=== PATIENT | female | born 1955 | race Caucasian/White ===

== ENCOUNTER → 2017-11-07 | Outpatient (CLI) | payer OTHER ==
--- NOTE | 2017-11-07 14:56 | CT ---
EXAMINATION TYPE: CT chest w con DATE OF EXAM: 11/07/2017 COMPARISON: Radiograph 02/17/2016 HISTORY: 62-year-old female Abnormal CXR, Cough TECHNIQUE: Contiguous axial scanning of the chest after the administration of 100 mL of Isovue 300. Coronal/sagittal reconstructions performed. CT DLP: 2232mGycm. Automatic exposure control utilized for a dose reduction. FINDINGS: Large patient body habitus and patient's arms over the lower chest causes extensive artifact limiting assessment. In the visualized upper abdomen, there is marked distention of the gallbladder measuring 6.7 cm wide. Heart borderline to mildly enlarged without pericardial effusion. Aorta normal caliber with conventional branching anatomy. No thoracic lymphadenopathy by CT size criteria. Evaluation of the lungs shows respiratory motion artifacts and suggestion of mild underlying emphysem a. Mild diffuse bronchial wall thickening. Strandy dependent and bibasilar atelectasis without consol idation or pleural effusion. Bones: Degenerative changes of both shoulders. No evident osseous structure process. There is a centr al disc osteophyte complex seen at L1-L2. IMPRESSION: 1. Excessive artifacts due to patient's large size and arms down position. 2. Hypoventilatory changes due to large size. Also, COPD with mild emphysema. 3. Borderline to mild cardiomegaly. 4. Moderately hydropic gallbladder measuring 6.7 cm wide. Correlate for any right upper quadrant pain . If concern for early acute cholecystitis or other gallbladder dysfunction, recommend gallbladder ul trasound or HIDA scan.
== END | disposition home or self-care (01) ==
LOC: RADCTMAIN 13:07
PROVIDERS: ATTEND Family Medicine
DX: J43.9 Emphysema, unspecified (principal); I51.7 Cardiomegaly
CPT/HCPCS: 71260; Q9967

== ENCOUNTER 2018-01-31 11:35 | Emergency (ER) | payer OTHER ==
--- NOTE | 2018-01-31 11:49 | ED ---
Extremity Problem HPI - General Chief complaint: Extremity Problem,Nontraumatic Stated complaint: Extremity pain Time Seen by Provider: 01/31/18 11:47 Source: patient, EMS, RN notes reviewed, old records reviewed Mode of arrival: EMS Limitations: no limitations - History of Present Illness Initial comments: This is a 62-year-old female the ER for evaluation of left lower extremity edema rule out DVT. Patient complains of left LEG swelling and pain. No trauma. No recent travel history no sick contacts no history of DVT or PE. MD Complaint: extremity pain, extremity swelling (Left lower) -: days(s) Location: left, lower extremity History of Same: No -: No associated chest pain Radiation: none Severity scale (1-10): 3 Quality: aching Consistency: constant Improves with: nothing Worsens with: weight bearing Associated Symptoms: denies other symptoms - Related Data Home Medications Medication Instructions Recorded Confirmed Acetaminophen [Tylenol] 500 mg PO Q4H PRN 01/26/16 01/31/18 Albuterol Nebulized [Ventolin 2.5 mg INHALATION RT-Q6H PRN 01/26/16 01/31/18 Nebulized] Aspirin [Adult Low Dose Aspirin EC] 81 mg PO DAILY 01/26/16 01/31/18 Calcium Carbonate/Vitamin D3 1 tab PO BID 01/26/16 01/31/18 [Calcium 600-Vit D3 400 Caplet] Furosemide [Lasix] 40 mg PO DAILY 01/26/16 01/31/18 Lisinopril [Zestril] 10 mg PO DAILY 01/26/16 01/31/18 Multivitamins, Thera [Multivitamin 1 tab PO HS 01/26/16 01/31/18 (formulary)] Pravastatin Sodium [Pravachol] 20 mg PO HS 01/26/16 01/31/18 Spironolactone [Aldactone] 25 mg PO DAILY 01/26/16 01/31/18 fluvoxaMINE MALEATE [Luvox] 100 mg PO BID 01/26/16 01/31/18 Sennosides-Docusate Sodium 2 tab PO HS 02/15/16 01/31/18 [Senokot-S] Bisacodyl [Dulcolax] 10 mg PO DAILY PRN 01/31/18 01/31/18 Budesonide/Formoterol Fumarate 2 puff INHALATION RT-BID 01/31/18 01/31/18 [Symbicort 160-4.5 Mcg Inhaler] Insulin Glargine [Lantus] 115 unit SQ HS@2100 01/31/18 01/31/18 Magnesium Hydroxide [Milk of 2,400 mg PO DAILY PRN 01/31/18 01/31/18 Magnesia] SILVER sulfADIAZINE CREAM 1 applic TOPICAL BID 01/31/18 01/31/18 [Silvadene Cream] Triamcinolone 0.1% Cream [Kenalog 1 applic TOPICAL BID 01/31/18 01/31/18 0.1% Cream] Previous Rx's Medication Instructions Recorded HYDROcodone/APAP 7.5-325MG [[place] 0.5 tab PO Q4H PRN #30 tab 02/20/16 7.5-325] Insulin Aspart [NovoLOG 30 unit SQ AC-TID #0 02/20/16 (formulary)] Ipratropium-Albuterol Nebulize 3 ml INHALATION RT-QID ampul.neb 02/20/16 [Duoneb 0.5 mg-3 mg/3 ml Soln] Metoprolol Tartrate [Lopressor] 12.5 mg PO BID tab 02/20/16 Potassium Chloride ER [K-Dur 20] 40 meq PO DAILY #0 02/20/16 Cephalexin [Keflex] 500 mg PO Q6HR #40 cap 01/31/18 Allergies Allergy/AdvReac Type Severity Reaction Status Date / Time No Known Allergies Allergy Verified 01/31/18 12:08 Review of Systems ROS Statement: Those systems with pertinent positive or pertinent negative responses have been documented in the HPI. ROS Other: All systems not noted in ROS Statement are negative. Past Medical History Past Medical History: Heart Failure, Diabetes Mellitus, Hyperlipidemia, Hypertension, Vascular Disorder Additional Past Medical History / Comment(s): hx hypokalemia, wound bottom of rt foot History of Any Multi-Drug Resistant Organisms: None Reported Past Surgical History: Unable to Obtain Additional Past Surgical History / Comment(s): closed head injury approx 1999. 2 surgeries to release pressure on brain Past Anesthesia/Blood Transfusion Reactions: Unable to Obtain Past Psychological History: Anxiety, Depression Smoking Status: Former smoker Past Alcohol Use History: None Reported Past Drug Use History: None Reported - Past Family History Mother Family Medical History: Unable to Obtain General Exam Limitations: no limitations General appearance: alert, in no apparent distress Head exam: Present: atraumatic, normocephalic, normal inspection Eye exam: Present: normal appearance, PERRL, EOMI. Absent: scleral icterus, conjunctival injection, periorbital swelling ENT exam: Present: normal exam, mucous membranes moist Neck exam: Present: normal inspection. Absent: tenderness, meningismus, lymphadenopathy Respiratory exam: Present: normal lung sounds bilaterally. Absent: respiratory distress, wheezes, rales, rhonchi, stridor Cardiovascular Exam: Present: regular rate, normal rhythm, normal heart sounds. Absent: systolic murmur, diastolic murmur, rubs, gallop, clicks GI/Abdominal exam: Present: soft, normal bowel sounds. Absent: distended, tenderness, guarding, rebound, rigid Extremities exam: Present: normal inspection, full ROM, normal capillary refill. Absent: tenderness, pedal edema, joint swelling, calf tenderness Back exam: Present: normal inspection Neurological exam: Present: alert, oriented X3, CN II-XII intact Psychiatric exam: Present: normal affect, normal mood Skin exam: Present: warm, dry, intact, normal color. Absent: rash Course Vital Signs 01/31/18 01/31/18 01/31/18 11:42 13:45 17:42 Temperature 97.9 F Pulse Rate 90 87 90 Respiratory 16 16 16 Rate Blood Pressure 143/70 126/78 143/78 O2 Sat by Pulse 95 99 Oximetry - Reevaluation(s) Reevaluation #1: 01/31/18 17:52 Medical record is reviewed Reevaluation #2: 01/31/18 17:52 Patient placed on antibiotics or cyanosis, she is encouraged to stay in the hospital, she states he feels good and would like to be discharged Medical Decision Making - Medical Decision Making 62 female the ER for evaluation, patient presents today for evaluation regarding to leg swelling rule out leg occlusion arterial occlusion CT of leg is negative and some negative for DVT, patient has cellulitis which we'll treat with antibiotics - Lab Data Result diagrams: 01/31/18 11:52 01/31/18 11:52 Lab Results 01/31/18 01/31/18 01/31/18 Range/Units 11:52 11:52 11:52 WBC 8.6 (3.8-10.6) k/uL RBC 5.32 (3.80-5.40) m/uL Hgb 14.1 (11.4-16.0) gm/dL Hct 43.9 (34.0-46.0) % MCV 82.6 (80.0-100.0) fL MCH 26.6 (25.0-35.0) pg MCHC 32.2 (31.0-37.0) g/dL RDW 15.7 H (11.5-15.5) % Plt Count 305 (150-450) k/uL Neutrophils % 74 % Lymphocytes % 16 % Monocytes % 4 % Eosinophils % 4 % Basophils % 0 % Neutrophils # 6.3 (1.3-7.7) k/uL Lymphocytes # 1.4 (1.0-4.8) k/uL Monocytes # 0.4 (0-1.0) k/uL Eosinophils # 0.4 (0-0.7) k/uL Basophils # 0.0 (0-0.2) k/uL PT (9.0-12.0) sec INR (<1.2) APTT (22.0-30.0) sec Sodium 140 (137-145) mmol/L Potassium 5.1 (3.5-5.1) mmol/L Chloride 102 (98-107) mmol/L Carbon Dioxide 32 H (22-30) mmol/L Anion Gap 6 mmol/L BUN 11 (7-17) mg/dL Creatinine 0.56 (0.52-1.04) mg/dL Est GFR (CKD-EPI)AfAm >90 (>60 ml/min/1.73 sqM) Est GFR (CKD-EPI)NonAf >90 (>60 ml/min/1.73 sqM) Glucose 131 H (74-99) mg/dL Calcium 9.4 (8.4-10.2) mg/dL Phosphorus 4.3 (2.5-4.5) mg/dL Magnesium 1.8 (1.6-2.3) mg/dL Total Bilirubin 0.9 (0.2-1.3) mg/dL AST 46 H (14-36) U/L ALT 40 (9-52) U/L Alkaline Phosphatase 74 (38-126) U/L Total Creatine Kinase 68 (30-135) U/L CK-MB (CK-2) 0.4 (0.0-2.4) ng/mL CK-MB (CK-2) Rel Index 0.6 Troponin I <0.012 (0.000-0.034) ng/mL Total Protein 7.1 (6.3-8.2) g/dL Albumin 3.3 L (3.5-5.0) g/dL 01/31/18 Range/Units 11:52 WBC (3.8-10.6) k/uL RBC (3.80-5.40) m/uL Hgb (11.4-16.0) gm/dL Hct (34.0-46.0) % MCV (80.0-100.0) fL MCH (25.0-35.0) pg MCHC (31.0-37.0) g/dL RDW (11.5-15.5) % Plt Count (150-450) k/uL Neutrophils % % Lymphocytes % % Monocytes % % Eosinophils % % Basophils % % Neutrophils # (1.3-7.7) k/uL Lymphocytes # (1.0-4.8) k/uL Monocytes # (0-1.0) k/uL Eosinophils # (0-0.7) k/uL Basophils # (0-0.2) k/uL PT 10.7 (9.0-12.0) sec INR 1.0 (<1.2) APTT 27.0 (22.0-30.0) sec Sodium (137-145) mmol/L Potassium (3.5-5.1) mmol/L Chloride (98-107) mmol/L Carbon Dioxide (22-30) mmol/L Anion Gap mmol/L BUN (7-17) mg/dL Creatinine (0.52-1.04) mg/dL Est GFR (CKD-EPI)AfAm (>60 ml/min/1.73 sqM) Est GFR (CKD-EPI)NonAf (>60 ml/min/1.73 sqM) Glucose (74-99) mg/dL Calcium (8.4-10.2) mg/dL Phosphorus (2.5-4.5) mg/dL Magnesium (1.6-2.3) mg/dL Total Bilirubin (0.2-1.3) mg/dL AST (14-36) U/L ALT (9-52) U/L Alkaline Phosphatase (38-126) U/L Total Creatine Kinase (30-135) U/L CK-MB (CK-2) (0.0-2.4) ng/mL CK-MB (CK-2) Rel Index Troponin I (0.000-0.034) ng/mL Total Protein (6.3-8.2) g/dL Albumin (3.5-5.0) g/dL - Radiology Data Radiology results: report reviewed (XL left lower [place] negative for DVT CTA left lower extremity negative for arterial occlusion), image reviewed Disposition Clinical Impression: Leg edema, left, Left leg cellulitis Disposition: HOME SELF-CARE Condition: Good Instructions: Cellulitis (ED) Prescriptions: Cephalexin [Keflex] 500 mg PO Q6HR #40 cap Is patient prescribed a controlled substance at d/c from ED?: No Referrals: Zhang Ray DO [Primary Care Provider] - 1-2 days
--- NOTE | 2018-01-31 12:42 | US ---
EXAMINATION TYPE: US venous doppler duplex LE LT DATE OF EXAM: 01/31/2018 12:33 PM COMPARISON: NONE CLINICAL HISTORY: Pain. Left leg pain and redness x 20 years. Difficult and limited and exam due to p atient body habitus 5ft4in 360+lbs SIDE PERFORMED: Left TECHNIQUE: The lower extremity deep venous system is examined utilizing real time linear array sonog chel with graded compression, doppler sonography and color-flow sonography. VESSELS IMAGED: External Iliac Vein (EIV) Common Femoral Vein Deep Femoral Vein Greater Saphenous Vein * Femoral Vein Popliteal Vein Small Saphenous Vein * Proximal Calf Veins (* superficial vessels) Left Leg: No gross evidence for DVT as visualized, however exam is extremely limited due to patient' s body habitus. Unable to visualized veins to prove compressibility. Vascular waveforms visualized. IMPRESSION: There is vascular flow throughout the left lower extremities however given the patient's body habitus compressibility, the most accurate indicator of a negative exam, was not able to be demo nstrated throughout the left lower extremity. No gross evidence of acute deep venous thrombosis.
[2018-01-31] MEDS ORDERED: SODIUM CHLORIDE 0.9% 1,000 ML IV STA (13:16)
[2018-01-31] MEDS ORDERED: RX INFO: IV CONTRAST WAS GIVEN 1 EACH MISC MISCELLANE PRN (13:16)
[2018-01-31 14:04] LABS: Prothrombin Time 10.7 sec (9.0-12.0)
[2018-01-31 14:09] LABS: ALT 40 U/L (9-52); AST 46 U/L (14-36); Albumin 3.3 g/dL (3.5-5.0); Alkaline Phosphatase 74 U/L (38-126); Anion Gap 6 mmol/L; Blood Urea Nitrogen 11 mg/dL (7-17); Calcium 9.4 mg/dL (8.4-10.2); Carbon Dioxide 32 mmol/L (22-30); Chloride 102 mmol/L (98-107); Glucose 131 mg/dL (74-99); Magnesium 1.8 mg/dL (1.6-2.3); Phosphorus 4.3 mg/dL (2.5-4.5); Potassium 5.1 mmol/L (3.5-5.1); Sodium 140 mmol/L (137-145); Total Bilirubin 0.9 mg/dL (0.2-1.3); Total Protein 7.1 g/dL (6.3-8.2)
[2018-01-31 14:25] LABS: Basophils % (A) 0 %; Creatine Kinase 68 U/L (30-135); Eosinophils # (A) 0.4 k/uL (0-0.7); Eosinophils % (A) 4 %; HCT 43.9 % (34.0-46.0); HGB 14.1 gm/dL (11.4-16.0); Lymphocytes # (A) 1.4 k/uL (1.0-4.8); Lymphocytes % (A) 16 %; MCH 26.6 pg (25.0-35.0); MCHC 32.2 g/dL (31.0-37.0); MCV 82.6 fL (80.0-100.0); Mean Platelet Volume 6.6; Monocytes # (A) 0.4 k/uL (0-1.0); Monocytes % (A) 4 %; Neutrophils # (A) 6.3 k/uL (1.3-7.7); Neutrophils % (A) 74 %; Platelet Count 305 k/uL (150-450); RBC 5.32 m/uL (3.80-5.40); RDW 15.7 % (11.5-15.5); WBC 8.6 k/uL (3.8-10.6)
[2018-01-31 14:38] LABS: Creatine Kinase MB 0.4 ng/mL (0.0-2.4); Troponin I <0.012 ng/mL (0.000-0.034)
--- NOTE | 2018-01-31 17:12 | CT ---
EXAMINATION TYPE: CT angio lower extremity LT DATE OF EXAM: 01/31/2018 3:30 PM COMPARISON: None HISTORY: Left lower leg swelling and redness CT DLP: 1556.2 mGycm Automated exposure control for dose reduction was used. TECHNIQUE: Performed with IV Contrast, patient injected with 100 mL of Isovue 370. . FINDINGS: CT of the lower extremity runoff is performed. Vasculature appears to be patent to the level of the a nkles bilaterally on the source images. This appears to be attenuated on the reconstructed images alt ramses vasculature is evident to the trifurcation vessels on the reconstructed images. Overall, vessel caliber appears to be diffusely slightly small. There is some soft tissue swelling and edema of the left lower extremity compared to the right. This is greater along the anterior margin of the soft tissues anterior to the tibia. Venous vasculature on the left is somewhat prominent. Consider deep venous thrombosis. Left lower extremity ultrasound for deep venous thrombosis is recommended. IMPRESSION: 1. PATENT ARTERIAL VASCULARITY TO THE LEVEL OF THE ANKLES ON SOURCE IMAGES. 2. SOFT TISSUE SWELLING LEFT LOWER EXTREMITY COMPARED TO THE RIGHT. SOME SOFT TISSUE THICKENING ALONG THE ANTERIOR TIBIAL REGION ON THE LEFT MAY BE PRESENT. CONSIDER INFECTION WITHIN THE DIFFERENTIAL., GIVEN THE ASYMMETRY AND SOMEWHAT PROMINENT VASCULARITY ON THE LEFT, CONSIDER POSSIBILITY OF DEEP VENO US THROMBOSIS. ULTRASOUND RECOMMENDED FOR ADDITIONAL EVALUATION.
[2018-01-31] MEDS ORDERED: CEPHALEXIN 500 MG CAP PO STA (17:28)
[2018-01-31 18:17] VITALS: BP 109/56; PULSE 82; RESP 18; TEMP 98
[2018-01-31 18:29] LABS: Glucose,Whole Blood 82 mg/dL (75-99)
== END 2018-01-31 20:01 | disposition home or self-care (01) ==
LOC: EC 11:35
DX: L03.116 Cellulitis of left lower limb (principal); I11.0 Hypertensive heart disease with heart failure; I50.9 Heart failure, unspecified; E11.9 Type 2 diabetes mellitus without complications; E78.5 Hyperlipidemia, unspecified; F32.9 Major depressive disorder, single episode, unspecified; F41.9 Anxiety disorder, unspecified; Z87.891 Personal history of nicotine dependence; Z79.82 Long term (current) use of aspirin; Z79.51 Long term (current) use of inhaled steroids; Z79.899 Other long term (current) drug therapy; Z79.4 Long term (current) use of insulin
CPT/HCPCS: 36415; 93005; 80053; 82550; 82553; 83735; 84100; 84484; 85025; 85610; 85730; 93971; 73706; 99285; 96360; Q9967

== ENCOUNTER → 2021-07-12 | Outpatient (CLI) | payer MEDICARE, OTHER ==
--- NOTE | 2021-07-12 13:35 | USB ---
Patient History: Menarche at age 14. First Full-Term at age 20. Postmenopausal. Risk Values: Shantal 5 year model risk: 1.4%. NCI Lifetime model risk: 4.9%. Prior Study Comparison: 01/13/2007 Screening Mammogram, [facility]. 03/29/2008 Screening Mammogram, [facility]. 03/07/2010 Bilateral Screening Mammogram, [facility]. Findings: Right complete breast ultrasound including all four quadrants, the retroareolar region and axilla. Finding demonstrates no cystic or solid lesion seen. Left complete breast ultrasound including all four quadrants, the retroareolar region and axilla. Finding demonstrates no cystic or solid lesion seen a 2.3 x 0.2 x 3.0cm dermal mass. There is a hypoechoic subdermal collection at the 6:00 position 3 cm from the nipple. The deeper breast tissue appears normal. No suspicious underlying mass is identified. Overall Assessment: Probably benign, BI-RAD 3 Management: Screening Mammogram of both breasts. A clinical breast exam by your physician is recommended on an annual basis and results should be correlated with mammographic findings. Clinical management of the patient's physical findings. No recent mammograms at this location. VIANEY
--- NOTE | 2021-07-12 14:08 | P.GSHP ---
History of Present Illness H&P Date: 07/12/21 Chief Complaint: a sore in her left breast Patient is a 66-year-old white female from [facility] who was noted to have a dark firm spot in her left breast. The patient does not feel any lumps or masses herself. She is not complaining of any pain in her breast. The patient had a closed head injury 25 years ago. She is bed bound. She does not tolerate a wheel chair for very long. Her right side works better than her left side. Caffiene: 1 cup/day nicotine: 1 PPD/ > 20 years ago hormones: none BCP: 10 years Family History: no cancer Other: Possibly preleukemia Hormonal History: menarche: 12 , breast fed: no, age at first : 20 menopause: ? closed head injury; questionable vaginal bleeding Surgical History: ? surgical history Medical history: Hemiplegia and hemiparesis following cerebral infarction affecting left dominant side Vascular dementia COPD Type 2 diabetes Morbid obesity Personality disorder Hyperlipidemia and Major depressive disorder Lymphedema Obsessive-compulsive disorder Hypertension Contracture left ankle Chronic idiopathic constipation Tachycardia Social history: Nicotine: Negative Alcohol: Negative at this time, he was an alcoholic 25 years ago and that is why she fell Drugs: Negative - Constitutional Constitutional: Denies chills, Denies fever - EENT Comment: glasses Ears, nose, mouth and throat: Reports as per HPI - Breasts Breasts: bilateral: as per HPI - Cardiovascular Cardiovascular: Reports shortness of breath - Respiratory Comment: COPD - Gastrointestinal Gastrointestinal: Reports constipation - Genitourinary (Female) Genitourinary: Reports as per HPI - Menstruation Menstruation: Reports as per HPI - Musculoskeletal Musculoskeletal: Reports as per HPI - Integumentary Integumentary: Reports as per HPI - Neurological Neurological: Reports as per HPI - Psychiatric Psychiatric: Reports as per HPI - Endocrine Comment: diabetic - Hematologic/Lymphatic Comment: low dose aspirin - Allergic/Immunologic Allergic/Immunologic: Reports as per HPI Past Medical History Past Medical History: Heart Failure, Diabetes Mellitus, Hyperlipidemia, Hypertension, Vascular Disorder Additional Past Medical History / Comment(s): hx hypokalemia, wound bottom of rt foot History of Any Multi-Drug Resistant Organisms: None Reported Past Surgical History: Unable to Obtain Additional Past Surgical History / Comment(s): closed head injury approx 1999. 2 surgeries to release pressure on brain Past Anesthesia/Blood Transfusion Reactions: Unable to Obtain Past Psychological History: Anxiety, Depression Past Alcohol Use History: None Reported Past Drug Use History: None Reported - Past Family History Mother Family Medical History: Unable to Obtain Medications and Allergies Home Medications Medication Instructions Recorded Confirmed Type Acetaminophen [Tylenol] 500 mg PO Q4H PRN 01/26/16 01/31/18 History Albuterol Nebulized [Ventolin 2.5 mg INHALATION RT-Q6H PRN 01/26/16 01/31/18 History Nebulized] Aspirin [Adult Low Dose Aspirin EC] 81 mg PO DAILY 01/26/16 01/31/18 History Calcium Carbonate/Vitamin D3 1 tab PO BID 01/26/16 01/31/18 History [Calcium 600-Vit D3 400 Caplet] Furosemide [Lasix] 40 mg PO DAILY 01/26/16 01/31/18 History Multivitamins, Thera [Multivitamin 1 tab PO HS 01/26/16 01/31/18 History (formulary)] Pravastatin Sodium [Pravachol] 20 mg PO HS 01/26/16 01/31/18 History Spironolactone [Aldactone] 25 mg PO DAILY 01/26/16 01/31/18 History fluvoxaMINE MALEATE [Luvox] 100 mg PO BID 01/26/16 01/31/18 History lisinopriL [Zestril] 10 mg PO DAILY 01/26/16 01/31/18 History Sennosides-Docusate Sodium 2 tab PO HS 02/15/16 01/31/18 History [Senokot-S] HYDROcodone/APAP 7.5-325MG [[place] 0.5 tab PO Q4H PRN #30 tab 02/20/16 01/31/18 Rx 7.5-325] INSULIN ASPART (NovoLOG) [NovoLOG 30 unit SQ AC-TID #0 02/20/16 01/31/18 Rx (formulary)] Ipratropium-Albuterol Nebulize 3 ml INHALATION RT-QID ampul.neb 02/20/16 01/31/18 Rx [Duoneb 0.5 mg-3 mg/3 ml Soln] Metoprolol Tartrate [Lopressor] 12.5 mg PO BID tab 02/20/16 01/31/18 Rx Potassium Chloride ER [K-Dur 20] 40 meq PO DAILY #0 12/26/16 12/07/18 Rx Budesonide/Formoterol Fumarate 2 puff INHALATION RT-BID 01/31/18 01/31/18 History [Symbicort 160-4.5 Mcg Inhaler] Cephalexin [Keflex] 500 mg PO Q6HR #40 cap 01/31/18 Rx Insulin Glargine [Lantus Vial] 115 unit SQ HS@2100 01/31/18 01/31/18 History Magnesium Hydroxide [Milk of 2,400 mg PO DAILY PRN 01/31/18 01/31/18 History Magnesia] SILVER sulfADIAZINE CREAM 1 applic TOPICAL BID 01/31/18 01/31/18 History [Silvadene Cream] Triamcinolone 0.1% Cream [Kenalog 1 applic TOPICAL BID 01/31/18 01/31/18 History 0.1% Cream] bisacodyL [Dulcolax] 10 mg PO DAILY PRN 01/31/18 01/31/18 History Allergies Allergy/AdvReac Type Severity Reaction Status Date / Time No Known Allergies Allergy Verified 01/31/18 12:08 Surgical - Exam - General moderate distress - ENT no hearing loss - Neck trachea midline - Respiratory Decreased breath sounds at bases - Cardiovascular Heart Sounds: normal: S1, S2 - Abdomen Umbilical hernia reducible - Integumentary Approximately 4 x 2.5 cm very gated raised lesion inframammary fold in the left inner quadrant left breast - Musculoskeletal bed bound - Psychiatric brother is her power of certified public accountant Breast examination: Examination is done with the patient recumbent in bed Right breast is approximately 2-1/2 times larger than left breast Palpation: Right breast: No definitive dominant masses or nodules of concern Left breast in the inframammary fold area there is a raised lesion approximately 2.5 x 4 cm it has very states of brown, tandem black with irregular borders. Additionally there is fungal dermatitis under both breast No discrete axillary adenopathy was found on either side however examination was limited Results Ultrasound of the area of concern in the left breast did not reveal a specific lesion of concern in the left breast Assessment and Plan Assessment: Impression: Skin lesion of concern left breast Asymmetry of the breast Hemiplegia and hemiparesis following cerebral infarction affecting left dominant side Vascular dementia COPD Type 2 diabetes Morbid obesity Personality disorder Hyperlipidemia and Major depressive disorder Lymphedema Obsessive-compulsive disorder Hypertension Contracture left ankle Chronic idiopathic constipation Tachycardia Plan: Biopsy lesion of concern left breast Risks and benefits are discussed with the patient's brother who is her power of certified public accountant. He wishes us to proceed. Risk include but are not limited to bleeding, infection, reaction to the anesthetic. : Dr. Ray
--- NOTE | 2021-07-12 14:24 | P.PCN ---
Date of Procedure: 07/12/21 Preoperative Diagnosis: Nevus of concern left breast Postoperative Diagnosis: Same Procedure(s) Performed: Punch biopsy lesion left breast Anesthesia: local Surgeon: Cintia Medeiros Pathology: other (Lesion left breast) Condition: stable Disposition: same day Indications for Procedure: lesion of concern left breast Description of Procedure: The area of concern in the left breast was prepped using Betadine. The area was anesthetized using 1% lidocaine. A punch biopsy 4 mm was obtained. The specimen was sent to pathology. The patient tolerated the procedure in stable condition.
== END | disposition home or self-care (01) ==
LOC: RADUSWWP 11:53
PROVIDERS: ATTEND Surgery
DX: N63.0 Unspecified lump in unspecified breast (principal)

== ENCOUNTER 2021-09-22 17:00 | Inpatient (IN) | payer MEDICARE, OTHER ==
[2021-09-22] MEDS ORDERED: ETOMIDATE 2 MG/ML 10 ML VIAL IVP STA (17:08)
[2021-09-22] MEDS ORDERED: ROCURONIUM 10 MG/ML (5 ML VIAL) IV STA (17:09)
[2021-09-22] MEDS ORDERED: IPRATROPIUM-ALBUTEROL 3 ML NEB INHALATION STA (17:17)
[2021-09-22] MEDS ORDERED: methylPREDNISolone SOD SUCCI 125 MG/2 ML VIAL IV STA (17:18)
--- NOTE | 2021-09-22 17:21 | ED ---
General Adult HPI - General Chief complaint: Cardiac Arrest/CPR Stated complaint: Cardiac Arrest Source: EMS Mode of arrival: EMS Limitations: altered mental status - History of Present Illness Initial comments: Patient presents to the ED by ambulance for evaluation. Per EMS, the patient was found unresponsive at her intermediate and CPR was performed for about 10 minutes by intermediate staff. Per EMS, the patient was shocked by an AED prior to their arrival. Per EMS the patient has been in sinus tachycardia with a strong pulse since they got on scene. Per EMS, they have been assisting ventilation with a BVM. Per EMS, the patient has a history of stroke, but she is normally alert. Per EMS the patient has a strong gag reflex. Per EMS, they feel that the patient may have aspirated, as they have been suctioning out brown colored fluid. Per EMS, patient is full code. Patient is unable to provide any history at this time. - Related Data Home Medications Medication Instructions Recorded Confirmed Aspirin [Adult Low Dose Aspirin EC] 81 mg PO DAILY@0800 01/26/16 09/22/21 Calcium Carbonate/Vitamin D3 1 tab PO BID@08,199901/26/16 09/22/21 [Calcium 600-Vit D3 400 Caplet] Furosemide [Lasix] 40 mg PO DAILY@0800,1600 01/26/16 09/22/21 Multivitamins, Thera [Multivitamin 1 tab PO HS 01/26/16 09/22/21 (formulary)] Pravastatin Sodium [Pravachol] 20 mg PO HS@199901/26/16 09/22/21 Spironolactone [Aldactone] 25 mg PO DAILY@0800 01/26/16 09/22/21 fluvoxaMINE MALEATE [Luvox] 150 mg PO BID@08,199901/26/16 09/22/21 lisinopriL [Zestril] 10 mg PO DAILY@0800 01/26/16 09/22/21 Sennosides-Docusate Sodium 2 tab PO BID@0800,199902/15/16 09/22/21 [Senokot-S] Insulin Glargine [Lantus Vial] 50 unit SQ BID@08,199901/31/18 09/22/21 Albuterol Sulfate [Proventil Hfa] 2 puff INHALATION 09/22/21 09/22/21 RT-QID@08,12,16,20 PRN Fluticasone Propion/Salmeterol 1 puff INHALATION RT-BID@799,199909/22/21 09/22/21 [Advair 250-50 Diskus] INSULIN LISPRO (HumaLOG) [humaLOG] 22 units SQ TID@0700,1100,1600 09/22/21 09/22/21 Metoprolol Tartrate [Lopressor] 12.5 mg PO BID@799,199909/22/21 09/22/21 Potassium Chloride ER [K-Dur 20] 40 meq PO DAILY@0800 09/22/21 09/22/21 Allergies Allergy/AdvReac Type Severity Reaction Status Date / Time No Known Allergies Allergy Verified 09/22/21 21:01 Review of Systems ROS Statement: Those systems with pertinent positive or pertinent negative responses have been documented in the HPI. ROS Other: All systems not noted in ROS Statement are negative. Limitations: ROS unobtainable due to patients medical condition Past Medical History Past Medical History: Heart Failure, Diabetes Mellitus, Hyperlipidemia, Hypertension, Vascular Disorder Additional Past Medical History / Comment(s): hx hypokalemia, wound bottom of rt foot History of Any Multi-Drug Resistant Organisms: None Reported Past Surgical History: Unable to Obtain Additional Past Surgical History / Comment(s): closed head injury approx 1999. 2 surgeries to release pressure on brain Past Anesthesia/Blood Transfusion Reactions: Unable to Obtain Past Psychological History: Anxiety, Depression Past Alcohol Use History: None Reported Past Drug Use History: None Reported - Past Family History Mother Family Medical History: Unable to Obtain General Exam Limitations: altered mental status General appearance: other (Patient only responds to painful stimulus; GCS equals 7) Head exam: Present: atraumatic, normocephalic Eye exam: Present: normal appearance, PERRL ENT exam: Present: mucous membranes dry Neck exam: Present: other (Trachea is in midline) Respiratory exam: Present: other (Course breath sounds and wheezes bilaterally). Absent: stridor Cardiovascular Exam: Present: normal rhythm, tachycardia, normal heart sounds, other (Normal radial pulses bilaterally) GI/Abdominal exam: Present: soft, other (Obese abdomen; soft umbilical hernia). Absent: guarding Extremities exam: Absent: pedal edema Neurological exam: Present: other (GCS = 7; patient is moving all 4 extremities spontaneously; patient localizes to pain in all 4 extremities) Skin exam: Present: warm, dry, intact, normal color Course Vital Signs 09/22/21 09/22/21 09/22/21 17:02 17:25 17:52 Temperature 97.7 F Pulse Rate 128 H Respiratory 17 Rate Blood Pressure O2 Sat by Pulse 96 Oximetry Fraction of 100 100 Inspired Oxygen (FIO2) 09/22/21 09/22/21 09/22/21 18:00 18:12 18:21 Temperature Pulse Rate 105 H 101 H 104 H Respiratory 22 Rate Blood Pressure 129/90 O2 Sat by Pulse Oximetry Fraction of Inspired Oxygen (FIO2) 09/22/21 09/22/21 09/22/21 18:22 19:15 19:35 Temperature Pulse Rate 96 Respiratory 22 Rate Blood Pressure 95/65 O2 Sat by Pulse 94 L Oximetry Fraction of 80 80 Inspired Oxygen (FIO2) 09/22/21 09/22/21 20:00 21:00 Temperature Pulse Rate 89 90 Respiratory 22 22 Rate Blood Pressure 128/85 122/54 O2 Sat by Pulse 94 L 94 L Oximetry Fraction of Inspired Oxygen (FIO2) - Reevaluation(s) Reevaluation #1: 09/22/21 18:41 Patient remains sedated and on the ventilator. Patient's brother/healthcare power of litigation attorney is currently at bedside with the patient. I have updated him on the patient's test results thus far and critical condition. He is aware of, and agrees with, plan to admit the patient to the ICU. 09/22/21 19:21 Case, H&P, test results thus far and ED management thus far were discussed with Dr. Montalvo (director supply chain). He agrees with ICU admission. Given the patient's ca rdiac arrest and elevated d-dimer, he agrees with heparin anticoagulation pending a VQ scan in the morning (since the patient is too large to fit in the CT scan machine per machine technician). He recommends also treating the patient with IV vancomycin. He has no further recommendations at this time. 09/22/21 19:28 Case, H&P, test results thus far, ED management thus far and my discussion with Dr. Montalvo as above were discussed with Dr. Diaz. He accepts ICU admission. He recommends ordering bilateral lower extremity venous duplex ultrasounds as well. He has no further recommendations at this time. EKG Findings - EKG Comments: EKG Findings:: EKG is limited secondary to motion, sinus tachycardia, ventricular rate of 132 bpm, no ectopy, normal NC and QRS intervals, normal QT interval, incomplete right bundle branch block, no definite ST or T-wave abnormality, normal axis Procedures - Intubation Sedative: Etomidate Mg Given: 20 Paralytic: Rocuronium Mg Given: 50 Laryngoscope: other (Video laryngoscope) ET Tube Size: 8 ET Tube Uncuffed: No Tube Secured Depth (cm): 23 Tube Secured Location: lips Tube Placement Confirmation: visualized tube passing through cords, equal breath sounds bilaterally, no breath sounds over epigastrium Patient Tolerated Procedure: well, no complications Intubation Complications: none - Sepsis Sepsis Focused Exam #1 Time Sepsis Criteria Met: 17:50 Sepsis Focused Exam Date: 09/22/21 Sepsis Focused Exam Time: 21:48 Sepsis Focused Exam Complete: Yes Vital Signs & RN Notes Reviewed: Yes Capillary Refill: < 2 Seconds: Fingers, Toes Peripheral Pulses: Normal: Radial (R), Radial (L) Skin Color: Normal for Patient Respiratory Exam: rhonchi Cardiovascular Exam: regular rate, normal rhythm, normal heart sounds Medical Decision Making - Medical Decision Making Given the patient's chest x-ray findings, leukocytosis and elevated lactic acid level, I suspect that the patient's respiratory failure is likely secondary to pneumonia/aspiration pneumonia and sepsis. Patient has been treated with broad- spectrum IV antibiotics and 30 mL/kg of IV fluids per sepsis protocol. Given the patient's elevated d-dimer and inability to obtain a CT angio chest due to her morbidly obese body habitus, patient was started on heparin anticoagulation pending a VQ scan in the morning. Bilateral lower extremity venous duplex ultrasounds were also ordered. Case was discussed with the director supply chain, as well as Dr. Diaz, and both agree with hospital ICU admission. - Lab Data Result diagrams: 09/22/21 20:19 09/22/21 17:00 Lab Results 09/22/21 09/22/21 09/22/21 Range/Units 12:57 17:00 17:00 WBC 22.1 H (3.8-10.6) k/uL RBC 5.90 H (3.80-5.40) m/uL Hgb 16.2 H (11.4-16.0) gm/dL Hct 52.6 H (34.0-46.0) % MCV 89.3 (80.0-100.0) fL MCH 27.5 (25.0-35.0) pg MCHC 30.8 L (31.0-37.0) g/dL RDW 14.7 (11.5-15.5) % Plt Count 421 (150-450) k/uL MPV 7.2 Neutrophils % Not Reportable Neutrophils % (Manual) 49 % Band Neuts % (Manual) 3 % Lymphocytes % Not Reportable Lymphocytes % (Manual) 38 % Monocytes % Not Reportable Monocytes % (Manual) 9 % Eosinophils % Not Reportable Eosinophils % (Manual) 1 % Basophils % Not Reportable Neutrophils # Not Reportable Neutrophils # (Manual) 11.40 H (1.3-7.7) k/uL Lymphocytes # Not Reportable Lymphocytes # (Manual) 8.40 H (1.0-4.8) k/uL Monocytes # Not Reportable Monocytes # (Manual) 1.99 H (0-1.0) k/uL Eosinophils # Not Reportable Eosinophils # (Manual) 0.22 (0-0.7) k/uL Basophils # Not Reportable Nucleated RBCs 0 (0-0) /100 WBC Manual Slide Review Performed Hypochromasia Moderate PT 10.6 (9.0-12.0) sec INR 1.0 (<1.2) APTT 25.0 (22.0-30.0) sec D-Dimer 17.30 H (<0.60) mg/L FEU Sample Site ABG pH (7.35-7.45) ABG pCO2 (35-45) mmHg ABG pO2 (83-108) mmHg ABG HCO3 (21-25) mmol/L ABG Total CO2 (19-24) mmol/L ABG O2 Saturation (94-97) % ABG Base Excess mmol/L Christiano Test FiO2 % Sodium (137-145) mmol/L Potassium (3.5-5.1) mmol/L Chloride (98-107) mmol/L Carbon Dioxide (22-30) mmol/L Anion Gap mmol/L BUN (7-17) mg/dL Creatinine (0.52-1.04) mg/dL Est GFR (CKD-EPI)AfAm (>60 ml/min/1.73 sqM) Est GFR (CKD-EPI)NonAf (>60 ml/min/1.73 sqM) Glucose (74-99) mg/dL POC Glucose (mg/dL) (70-110) mg/dL POC Glu Senior Interactive Developer ID Lactic Ac Sepsis Rflx Plasma Lactic Acid Leonidas (0.7-2.0) mmol/L Calcium (8.4-10.2) mg/dL Magnesium (1.6-2.3) mg/dL Total Bilirubin (0.2-1.3) mg/dL AST (14-36) U/L ALT (4-34) U/L Alkaline Phosphatase (38-126) U/L Troponin I (0.000-0.034) ng/mL NT-Pro-B Natriuret Pep pg/mL Total Protein (6.3-8.2) g/dL Albumin (3.5-5.0) g/dL Urine Color Urine Appearance (Clear) Urine pH (5.0-8.0) Ur Specific Metaline (1.001-1.035) Urine Protein (Negative) Urine Glucose (UA) (Negative) Urine Ketones (Negative) Urine Blood (Negative) Urine Nitrite (Negative) Urine Bilirubin (Negative) Urine Urobilinogen (<2.0) mg/dL Ur Leukocyte Esterase (Negative) Urine RBC (0-5) /hpf Urine WBC (0-5) /hpf Urine WBC Clumps (None) /hpf Ur Squamous Epith Cells (0-4) /hpf Urine Bacteria (None) /hpf Hyaline Casts (0-2) /lpf Urine Mucus (None) /hpf Influenza Type A (PCR) Not Detected (Not Detectd) Influenza Type B (PCR) Not Detected (Not Detectd) RSV (PCR) Not Detected (Not Detectd) SARS-CoV-2 (PCR) Not Detected (Not Detectd) 09/22/21 09/22/21 09/22/21 Range/Units 17:00 17:00 17:00 WBC (3.8-10.6) k/uL RBC (3.80-5.40) m/uL Hgb (11.4-16.0) gm/dL Hct (34.0-46.0) % MCV (80.0-100.0) fL MCH (25.0-35.0) pg MCHC (31.0-37.0) g/dL RDW (11.5-15.5) % Plt Count (150-450) k/uL MPV Neutrophils % Neutrophils % (Manual) % Band Neuts % (Manual) % Lymphocytes % Lymphocytes % (Manual) % Monocytes % Monocytes % (Manual) % Eosinophils % Eosinophils % (Manual) % Basophils % Neutrophils # Neutrophils # (Manual) (1.3-7.7) k/uL Lymphocytes # Lymphocytes # (Manual) (1.0-4.8) k/uL Monocytes # Monocytes # (Manual) (0-1.0) k/uL Eosinophils # Eosinophils # (Manual) (0-0.7) k/uL Basophils # Nucleated RBCs (0-0) /100 WBC Manual Slide Review Hypochromasia PT (9.0-12.0) sec INR (<1.2) APTT (22.0-30.0) sec D-Dimer (<0.60) mg/L FEU Sample Site ABG pH (7.35-7.45) ABG pCO2 (35-45) mmHg ABG pO2 (83-108) mmHg ABG HCO3 (21-25) mmol/L ABG Total CO2 (19-24) mmol/L ABG O2 Saturation (94-97) % ABG Base Excess mmol/L Christiano Test FiO2 % Sodium 143 (137-145) mmol/L Potassium 4.0 (3.5-5.1) mmol/L Chloride 100 (98-107) mmol/L Carbon Dioxide 34 H (22-30) mmol/L Anion Gap 9 mmol/L BUN 9 (7-17) mg/dL Creatinine 0.70 (0.52-1.04) mg/dL Est GFR (CKD-EPI)AfAm >90 (>60 ml/min/1.73 sqM) Est GFR (CKD-EPI)NonAf >90 (>60 ml/min/1.73 sqM) Glucose 164 H (74-99) mg/dL POC Glucose (mg/dL) (70-110) mg/dL POC Glu Senior Interactive Developer ID Lactic Ac Sepsis Rflx Plasma Lactic Acid Leonidas 5.8 H* (0.7-2.0) mmol/L Calcium 9.5 (8.4-10.2) mg/dL Magnesium 2.0 (1.6-2.3) mg/dL Total Bilirubin 0.6 (0.2-1.3) mg/dL AST 74 H (14-36) U/L ALT 41 H (4-34) U/L Alkaline Phosphatase 121 (38-126) U/L Troponin I <0.012 (0.000-0.034) ng/mL NT-Pro-B Natriuret Pep pg/mL Total Protein 7.9 (6.3-8.2) g/dL Albumin 3.9 (3.5-5.0) g/dL Urine Color Urine Appearance (Clear) Urine pH (5.0-8.0) Ur Specific Metaline (1.001-1.035) Urine Protein (Negative) Urine Glucose (UA) (Negative) Urine Ketones (Negative) Urine Blood (Negative) Urine Nitrite (Negative) Urine Bilirubin (Negative) Urine Urobilinogen (<2.0) mg/dL Ur Leukocyte Esterase (Negative) Urine RBC (0-5) /hpf Urine WBC (0-5) /hpf Urine WBC Clumps (None) /hpf Ur Squamous Epith Cells (0-4) /hpf Urine Bacteria (None) /hpf Hyaline Casts (0-2) /lpf Urine Mucus (None) /hpf Influenza Type A (PCR) (Not Detectd) Influenza Type B (PCR) (Not Detectd) RSV (PCR) (Not Detectd) SARS-CoV-2 (PCR) (Not Detectd) 09/22/21 09/22/21 09/22/21 Range/Units 17:00 17:22 17:32 WBC (3.8-10.6) k/uL RBC (3.80-5.40) m/uL Hgb (11.4-16.0) gm/dL Hct (34.0-46.0) % MCV (80.0-100.0) fL MCH (25.0-35.0) pg MCHC (31.0-37.0) g/dL RDW (11.5-15.5) % Plt Count (150-450) k/uL MPV Neutrophils % Neutrophils % (Manual) % Band Neuts % (Manual) % Lymphocytes % Lymphocytes % (Manual) % Monocytes % Monocytes % (Manual) % Eosinophils % Eosinophils % (Manual) % Basophils % Neutrophils # Neutrophils # (Manual) (1.3-7.7) k/uL Lymphocytes # Lymphocytes # (Manual) (1.0-4.8) k/uL Monocytes # Monocytes # (Manual) (0-1.0) k/uL Eosinophils # Eosinophils # (Manual) (0-0.7) k/uL Basophils # Nucleated RBCs (0-0) /100 WBC Manual Slide Review Hypochromasia PT (9.0-12.0) sec INR (<1.2) APTT (22.0-30.0) sec D-Dimer (<0.60) mg/L FEU Sample Site ABG pH (7.35-7.45) ABG pCO2 (35-45) mmHg ABG pO2 (83-108) mmHg ABG HCO3 (21-25) mmol/L ABG Total CO2 (19-24) mmol/L ABG O2 Saturation (94-97) % ABG Base Excess mmol/L Christiano Test FiO2 % Sodium (137-145) mmol/L Potassium (3.5-5.1) mmol/L Chloride (98-107) mmol/L Carbon Dioxide (22-30) mmol/L Anion Gap mmol/L BUN (7-17) mg/dL Creatinine (0.52-1.04) mg/dL Est GFR (CKD-EPI)AfAm (>60 ml/min/1.73 sqM) Est GFR (CKD-EPI)NonAf (>60 ml/min/1.73 sqM) Glucose (74-99) mg/dL POC Glucose (mg/dL) 139 H (70-110) mg/dL POC Glu Senior Interactive Developer ID Trent Fraga Lactic Ac Sepsis Rflx Plasma Lactic Acid Leonidas (0.7-2.0) mmol/L Calcium (8.4-10.2) mg/dL Magnesium (1.6-2.3) mg/dL Total Bilirubin (0.2-1.3) mg/dL AST (14-36) U/L ALT (4-34) U/L Alkaline Phosphatase (38-126) U/L Troponin I (0.000-0.034) ng/mL NT-Pro-B Natriuret Pep 81 pg/mL Total Protein (6.3-8.2) g/dL Albumin (3.5-5.0) g/dL Urine Color Yellow Urine Appearance Cloudy H (Clear) Urine pH 6.5 (5.0-8.0) Ur Specific Metaline 1.011 (1.001-1.035) Urine Protein 3+ H (Negative) Urine Glucose (UA) Trace H (Negative) Urine Ketones Negative (Negative) Urine Blood Large H (Negative) Urine Nitrite Negative (Negative) Urine Bilirubin Negative (Negative) Urine Urobilinogen <2.0 (<2.0) mg/dL Ur Leukocyte Esterase Large H (Negative) Urine RBC >182 H (0-5) /hpf Urine WBC 99 H (0-5) /hpf Urine WBC Clumps Moderate H (None) /hpf Ur Squamous Epith Cells <1 (0-4) /hpf Urine Bacteria Rare H (None) /hpf Hyaline Casts 3 H (0-2) /lpf Urine Mucus Rare H (None) /hpf Influenza Type A (PCR) (Not Detectd) Influenza Type B (PCR) (Not Detectd) RSV (PCR) (Not Detectd) SARS-CoV-2 (PCR) (Not Detectd) 09/22/21 09/22/21 Range/Units 17:50 18:02 WBC (3.8-10.6) k/uL RBC (3.80-5.40) m/uL Hgb (11.4-16.0) gm/dL Hct (34.0-46.0) % MCV (80.0-100.0) fL MCH (25.0-35.0) pg MCHC (31.0-37.0) g/dL RDW (11.5-15.5) % Plt Count (150-450) k/uL MPV Neutrophils % Neutrophils % (Manual) % Band Neuts % (Manual) % Lymphocytes % Lymphocytes % (Manual) % Monocytes % Monocytes % (Manual) % Eosinophils % Eosinophils % (Manual) % Basophils % Neutrophils # Neutrophils # (Manual) (1.3-7.7) k/uL Lymphocytes # Lymphocytes # (Manual) (1.0-4.8) k/uL Monocytes # Monocytes # (Manual) (0-1.0) k/uL Eosinophils # Eosinophils # (Manual) (0-0.7) k/uL Basophils # Nucleated RBCs (0-0) /100 WBC Manual Slide Review Hypochromasia PT (9.0-12.0) sec INR (<1.2) APTT (22.0-30.0) sec D-Dimer (<0.60) mg/L FEU Sample Site LRAD ABG pH 7.34 L (7.35-7.45) ABG pCO2 62 H (35-45) mmHg ABG pO2 99 (83-108) mmHg ABG HCO3 33 H (21-25) mmol/L ABG Total CO2 35 H (19-24) mmol/L ABG O2 Saturation 98.0 H (94-97) % ABG Base Excess 7.3 mmol/L Christiano Test Yes FiO2 100 % Sodium (137-145) mmol/L Potassium (3.5-5.1) mmol/L Chloride (98-107) mmol/L Carbon Dioxide (22-30) mmol/L Anion Gap mmol/L BUN (7-17) mg/dL Creatinine (0.52-1.04) mg/dL Est GFR (CKD-EPI)AfAm (>60 ml/min/1.73 sqM) Est GFR (CKD-EPI)NonAf (>60 ml/min/1.73 sqM) Glucose (74-99) mg/dL POC Glucose (mg/dL) (70-110) mg/dL POC Glu Senior Interactive Developer ID Lactic Ac Sepsis Rflx Y Plasma Lactic Acid Leoniads (0.7-2.0) mmol/L Calcium (8.4-10.2) mg/dL Magnesium (1.6-2.3) mg/dL Total Bilirubin (0.2-1.3) mg/dL AST (14-36) U/L ALT (4-34) U/L Alkaline Phosphatase (38-126) U/L Troponin I (0.000-0.034) ng/mL NT-Pro-B Natriuret Pep pg/mL Total Protein (6.3-8.2) g/dL Albumin (3.5-5.0) g/dL Urine Color Urine Appearance (Clear) Urine pH (5.0-8.0) Ur Specific Metaline (1.001-1.035) Urine Protein (Negative) Urine Glucose (UA) (Negative) Urine Ketones (Negative) Urine Blood (Negative) Urine Nitrite (Negative) Urine Bilirubin (Negative) Urine Urobilinogen (<2.0) mg/dL Ur Leukocyte Esterase (Negative) Urine RBC (0-5) /hpf Urine WBC (0-5) /hpf Urine WBC Clumps (None) /hpf Ur Squamous Epith Cells (0-4) /hpf Urine Bacteria (None) /hpf Hyaline Casts (0-2) /lpf Urine Mucus (None) /hpf Influenza Type A (PCR) (Not Detectd) Influenza Type B (PCR) (Not Detectd) RSV (PCR) (Not Detectd) SARS-CoV-2 (PCR) (Not Detectd) - Radiology Data Chest x-ray: 1. New ET and OGT satisfactory in position. 2. Cardiomegaly and low lung volumes with a new right mid to lower lung infiltr ate and/or atelectasis. Noncontrast head CT: 1. No acute intracranial process. 2. Nonspecific white matter changes that are consistent with chronic small vessel ischemia. Critical Care Time Critical Care Time: Yes Total Critical Care Time: 80 Disposition Clinical Impression: Cardiac arrest, Altered mental status, Sepsis, Pneumonia, Respiratory failure Disposition: ADMITTED IP TO THIS [facility] Condition: Critical Is patient prescribed a controlled substance at d/c from ED?: No Time of Disposition: 19:40
[2021-09-22 17:24] LABS: Glucose,Whole Blood 139 mg/dL (70-110)
[2021-09-22 17:28] LABS: HCT 52.6 % (34.0-46.0); HGB 16.2 gm/dL (11.4-16.0); Hypochromasia Moderate; MCH 27.5 pg (25.0-35.0); MCHC 30.8 g/dL (31.0-37.0); MCV 89.3 fL (80.0-100.0); Mean Platelet Volume 7.2; Platelet Count 421 k/uL (150-450); RDW 14.7 % (11.5-15.5); WBC 22.1 k/uL (3.8-10.6)
[2021-09-22 17:43] LABS: ALT 41 U/L (4-34); AST 74 U/L (14-36); African American GFR (CKD) >90 (>60 ml/min/1.73 sqM); Albumin 3.9 g/dL (3.5-5.0); Alkaline Phosphatase 121 U/L (38-126); Anion Gap 9 mmol/L; Blood Urea Nitrogen 9 mg/dL (7-17); Calcium 9.5 mg/dL (8.4-10.2); Carbon Dioxide 34 mmol/L (22-30); Chloride 100 mmol/L (98-107); Glucose 164 mg/dL (74-99); Non-African American GFR(CKD) >90 (>60 ml/min/1.73 sqM); Sodium 143 mmol/L (137-145); Total Bilirubin 0.6 mg/dL (0.2-1.3); Total Protein 7.9 g/dL (6.3-8.2)
[2021-09-22 17:53] LABS: Appearance,Urine Cloudy (Clear); Bacteria,Urine Rare /hpf; Bilirubin,Urine Negative (Negative); Blood,Urine Large (Negative); Color,Urine Yellow; Glucose,Urine (UA) Trace (Negative); Hyaline Casts,Urine 3 /lpf (0-2); Ketones,Urine Negative (Negative); Leukocyte Esterase,Urine Large (Negative); Mucus,Urine Rare /hpf; Nitrite,Urine Negative (Negative); PH, Urine 6.5 (5.0-8.0); Protein,Urine 3+ (Negative); RBC,Urine >182 /hpf (0-5); Specific Gravity,Urine 1.011 (1.001-1.035); Squamous Epithelial Cell,Urine <1 /hpf (0-4); Urobilinogen,Urine <2.0 mg/dL (<2.0); WBC,Urine 99 /hpf (0-5)
[2021-09-22 17:54] LABS: Prothrombin Time 10.6 sec (9.0-12.0)
[2021-09-22 18:04] LABS: Band Neutrophils % 3 %; Eosinophils # (M) 0.22 k/uL (0-0.7); Monocytes # (M) 1.99 k/uL (0-1.0); Neutrophils % (M) 49 %; Nucleated Red Blood Cells 0 /100 WBC (0-0); Total Cells Counted 100
[2021-09-22] MEDS ORDERED: PIPERACILLIN-TAZOBACTAM 3.375 GM in SODIUM CHLORIDE 0.9% 100 ML IVPB STA (18:12)
[2021-09-22] MEDS ORDERED: SODIUM CHLORIDE 0.9% 1,000 ML IV ONE ×2 (18:13→18:59)
--- NOTE | 2021-09-22 18:14 | CT ---
EXAMINATION TYPE: CT brain wo con CT DLP: 1232.4 mGycm, Automated exposure control for dose reduction was used. DATE OF EXAM: 09/22/2021 5:52 PM COMPARISON: None. CLINICAL INDICATION:Female, 66 years old with history of syncope, Syncope TECHNIQUE: Brain: Axial CT images of the brain were obtained with coronal and sagittal reformats created and rev iewed. Contrast used: None. Oral contrast used: None. FINDINGS: Brain: Extra-axial spaces: No abnormal extra-axial fluid collections. Ventricular system: Ex vacuo dilatation of the left lateral ventricle and third ventricle. Remainder of the ventricular system is within normal limits. Basilar cisterns are unremarkable. Cerebral parenchyma: No acute intraparenchymal hemorrhage or mass effect. The sena-white junction is well differentiated. There is diffuse ventricular and sulcal prominence consistent with age-related cerebral atrophy. Low-attenuation in the periventricular white matter consistent with chronic small v essel ischemic changes. Cerebellum: Unremarkable. Mass effect: No evidence of midline shift. Intracranial vasculature: Atherosclerotic calcification of the internal carotid arteries. Soft tissues: Normal. Calvarium/osseous structures: Remote left craniotomy changes. No depressed skull fractures. Paranasal sinuses and mastoid air cells: Mild mucosal thickening of the sphenoid sinus. The remaining paranasal sinuses and mastoid air cells are clear. Right maxillary sinus polyp. Visualized orbits: Orbital contents are intact. IMPRESSION: 1. No acute intracranial process. 2. Nonspecific white matter changes that are consistent with chronic small vessel ischemia.
[2021-09-22 18:15] LABS: ABG Base Excess 7.3 mmol/L; ABG HCO3 33 mmol/L (21-25); ABG PCO2 62 mmHg (35-45); ABG PH 7.34 (7.35-7.45); ABG PO2 99 mmHg (83-108); ABG TCO2 35 mmol/L (19-24); Allen Test Performed? Yes
[2021-09-22] MEDS ORDERED: VANCOMYCIN IV PER PHARMACY 1 EACH MISC MISCELLANE STA (19:21)
[2021-09-22] MEDS ORDERED: HEPARIN SODIUM 1,000 UN/ML (10ML VL) IV PRN (19:25)
[2021-09-22] MEDS ORDERED: VANCOMYCIN 2,000 MG in SODIUM CHLORIDE 0.9% 500 ML 500 ML IVPB STA (19:30)
--- NOTE | 2021-09-22 20:10 | XR ---
EXAMINATION TYPE: XR chest 1V portable DATE OF EXAM: 09/22/2021 COMPARISON: CT thorax November 07, 2017 HISTORY: Syncope and weakness. TECHNIQUE: Single AP portable frontal semiupright view of the chest is obtained. FINDINGS: Suboptimal due to large body habitus. There is an endotracheal tube terminating at aortic k nob level approximately 2 cm above michelle. There is orogastric tube projecting below diaphragm. Cardiomegaly with low lung volumes redemonstrated. Right mid to lower lung opacity. Cannot exclude le ft basilar opacity. Visualized osseous structures are intact. IMPRESSION: 1. New ET and OGT satisfactory in position. 2. Cardiomegaly and low lung volumes with new right mid to lower lung infiltrate and/or atelectasis.
[2021-09-22 20:40] LABS: Basophils % (A) 0 %; Eosinophils % (A) 0 %; HCT 47.4 % (34.0-46.0); HGB 14.8 gm/dL (11.4-16.0); Lymphocytes # (A) 0.7 k/uL (1.0-4.8); Lymphocytes % (A) 4 %; MCH 26.9 pg (25.0-35.0); MCHC 31.2 g/dL (31.0-37.0); MCV 86.3 fL (80.0-100.0); Monocytes # (A) 0.8 k/uL (0-1.0); Monocytes % (A) 4 %; Neutrophils # (A) 18.6 k/uL (1.3-7.7); Neutrophils % (A) 92 %; Platelet Count 382 k/uL (150-450); RBC 5.49 m/uL (3.80-5.40); RDW 14.8 % (11.5-15.5); WBC 20.2 k/uL (3.8-10.6)
--- NOTE | 2021-09-22 20:40 | US ---
EXAMINATION TYPE: US venous doppler duplex [facility] DATE OF EXAM: 09/22/2021 8:23 PM COMPARISON: Lower extremity venous duplex 01/31/2018 CLINICAL HISTORY: elevated d-dimer, cardiac arrest. SIDE PERFORMED: Bilateral TECHNIQUE: The lower extremity deep venous system is examined utilizing real time linear array sonog chel with graded compression, doppler sonography and color-flow sonography. VESSELS IMAGED: Right lower extremity: -Common Femoral vein: Normal compressibility, color Doppler flow and venous spectral waveforms with augmentation. -Femoral vein: Normal compressibility. -Popliteal vein: Normal compressibility, color Doppler flow and venous spectral waveforms with augmen tation. -Posterior tibial vein: Normal color Doppler flow. Left lower extremity: -Common Femoral vein: Normal compressibility, color Doppler flow and venous spectral waveforms with augmentation. -Femoral vein: Distal portions of the left femoral vein were not visualized. Visualized portions are patent and compressible. -Popliteal vein: Normal compressibility, color Doppler flow and venous spectral waveforms with augmen tation. -Posterior tibial vein: Normal color Doppler flow. IMPRESSION: No evidence for deep vein thrombosis in the right or left lower extremity as visualized.
[2021-09-22 20:57] LABS: Partial Thromboplastin Time 24.3 sec (22.0-30.0); Prothrombin Time 11.1 sec (9.0-12.0)
[2021-09-22] MEDS: PANTOPRAZOLE 40 MG/10 ML VIAL IVP SCH (21:03)
[2021-09-22] MEDS: HEPARIN SOD,PORK IN 0.45% NACL 25,000 UNIT in 0.45% NACL 1 250ML.BAG IV SCH (21:13)
[2021-09-23 00:18] LABS: Glucose,Whole Blood 171 mg/dL (70-110)
[2021-09-23 05:35] LABS: ABG Base Excess 3.7 mmol/L; ABG HCO3 27 mmol/L (21-25); ABG Oxygen Saturation 99.7 % (94-97); ABG PCO2 37 mmHg (35-45); ABG PH 7.48 (7.35-7.45); ABG PO2 114 mmHg (83-108); ABG TCO2 28 mmol/L (19-24); Allen Test Performed? Yes
[2021-09-23 05:44] LABS: Glucose,Whole Blood 188 mg/dL (70-110)
[2021-09-23] MEDS: CHLORHEXIDINE GLUCONATE 15 ML CUP MUCOUS MEM SCH ×2 (08:19→20:17)
[2021-09-23] MEDS: VANCOMYCIN 2,000 MG in SODIUM CHLORIDE 0.9% 500 ML 500 ML IVPB SCH ×2 (08:19→20:12)
[2021-09-23] MEDS: PANTOPRAZOLE 40 MG/10 ML VIAL IVP SCH (08:19)
[2021-09-23] MEDS ORDERED: CISATRACURIUM 2 MG/ML 5 ML VIAL IV ONE ×2 (09:58→10:19)
--- NOTE | 2021-09-23 10:12 | XR ---
EXAMINATION TYPE: XR chest 1V portable DATE OF EXAM: 09/23/2021 COMPARISON: 09/22/2021 INDICATION: Tube placement TECHNIQUE: Single frontal view of the chest is obtained. FINDINGS: The heart size is prominent. The pulmonary vasculature is normal. There is silhouetting of the left diaphragm. Some elevation of the right diaphragm may be present. The endotracheal tube tip is above michelle. Nasogastric tube transverses the thorax. IMPRESSION: 1. Cardiomegaly with a retrocardiac infiltrate. Correlate for atelectasis or pleural effusion. Catheters discussed above. 3. Exam is stable from comparison.
[2021-09-23] MEDS ORDERED: SODIUM CHLORIDE 0.9% 1,000 ML IV ONE ×2 (10:18→10:19)
[2021-09-23] MEDS: PIPERACILLIN-TAZOBACTAM 3.375 GM in SODIUM CHLORIDE 0.9% 100 ML IVPB SCH ×2 (10:27→16:06)
[2021-09-23] MEDS ORDERED: NOREPINEPHRINE 8 MG in SODIUM CHLORIDE 0.9% 250 ML IV SCH (10:30)
[2021-09-23 11:19] LABS: Basophils % (A) 0 %; Eosinophils % (A) 0 %; HCT 40.4 % (34.0-46.0); HGB 12.9 gm/dL (11.4-16.0); Lymphocytes % (A) 7 %; MCH 27.4 pg (25.0-35.0); MCHC 31.9 g/dL (31.0-37.0); MCV 86.2 fL (80.0-100.0); Mean Platelet Volume 7.7; Monocytes # (A) 0.4 k/uL (0-1.0); Monocytes % (A) 3 %; Neutrophils % (A) 90 %; Platelet Count 293 k/uL (150-450); RBC 4.69 m/uL (3.80-5.40); RDW 14.8 % (11.5-15.5); WBC 14.4 k/uL (3.8-10.6)
[2021-09-23 11:36] LABS: Glucose,Whole Blood 191 mg/dL (70-110)
--- NOTE | 2021-09-23 11:59 | P.CNPUL ---
History of Present Illness Consult date: 09/23/21 Requesting physician: Jose Diaz Reason for consult: other (Acute hypoxic respiratory failure, cardiac arrest) Chief complaint: Cardiac arrest History of present illness: This is a 66-year-old female, senior living resident, patient has history of closed head injury back in 1999, and she had at least 2 brain surgeries/craniotomies related to her closed head injury and hydrocephalus. Patient is a poor historian, apparently she was found at the senior living unresponsive and CPR was performed by nursing staff for about 10 minutes. By the time EMS arrived, patient has been shocked by nursing staff at the senior living, and as soon as EMS arrived patient was noted to be in sinus tachycardia with strong pulse at the scene. Patient was ventilated using BVM. And she was brought into the ER. Patient apparently had some witnessed aspiration, she was suctioned, she was unresponsive, and as soon as she arrived to the ER, patient was intubated and mechanically ventilated. She was hemodynamically stable initially. She received fluid boluses. And later on her blood pressure was noted to be trending down. Did not require norepinephrine. But she was given more fluid boluses in the ICU. Blood pressure this morning is very marginal, patient will receive more fluid boluses and will likely start norepinephrine if necessary. In the meantime the patient is unresponsive she doesn't respond to any stimuli except she grimaces and withdraws to deep painful stimuli only. Labs this morning showed a pO2 of 114 pCO2 37 pH of 7.48, and this was done on assist control rate of 22, volume 400 FiO2 70% and PEEP of 5. I was able to cut down the FiO2 to 60%. And I increased the PEEP to 8. Patient is on propofol at 40 mcg/kg/m she is also on heparin because she was found to have elevated d- dimer negative venous Doppler, considering her obesity, and weight, patient would not fit in a CT for CT of the chest. Hence a VQ scan is pending. In the meantime the patient is on heparin which I placed on hold for an hour prior to placement a right femoral triple-lumen catheter and a right femoral arterial line. PTT is 58.8, therapeutic. Urinalysis is suggestive of urinary tract infection, cultures are pending in the meantime the patient received 1 dose of vancomycin and vancomycin will be adjusted by pharmacy we also recommended Zosyn until cultures become available. Patient again may have had witnessed aspiration before coming into the ER. Review of Systems ROS unobtainable: due to endotracheal tube, due to mental status Past Medical History Past Medical History: Heart Failure, Diabetes Mellitus, Hyperlipidemia, Hypertension, Vascular Disorder Additional Past Medical History / Comment(s): hx hypokalemia, wound bottom of rt foot History of Any Multi-Drug Resistant Organisms: None Reported Past Surgical History: Unable to Obtain Additional Past Surgical History / Comment(s): closed head injury approx 1999. 2 surgeries to release pressure on brain Past Anesthesia/Blood Transfusion Reactions: Unable to Obtain Smoking Status: Former smoker - Past Family History Mother Family Medical History: Unable to Obtain Medications and Allergies Home Medications Medication Instructions Recorded Confirmed Type Aspirin [Adult Low Dose Aspirin EC] 81 mg PO DAILY@0800 01/26/16 09/22/21 History Calcium Carbonate/Vitamin D3 1 tab PO BID@0800,199901/26/16 09/22/21 History [Calcium 600-Vit D3 400 Caplet] Furosemide [Lasix] 40 mg PO DAILY@0800,1600 01/26/16 09/22/21 History Multivitamins, Thera [Multivitamin 1 tab PO HS 01/26/16 09/22/21 History (formulary)] Pravastatin Sodium [Pravachol] 20 mg PO HS@199901/26/16 09/22/21 History Spironolactone [Aldactone] 25 mg PO DAILY@0800 01/26/16 09/22/21 History fluvoxaMINE MALEATE [Luvox] 150 mg PO BID@0800,199901/26/16 09/22/21 History lisinopriL [Zestril] 10 mg PO DAILY@0800 01/26/16 09/22/21 History Sennosides-Docusate Sodium 2 tab PO BID@0800,199902/15/16 09/22/21 History [Senokot-S] Insulin Glargine [Lantus Vial] 50 unit SQ BID@0800,199901/31/18 09/22/21 History Albuterol Sulfate [Proventil Hfa] 2 puff INHALATION 09/22/21 09/22/21 History RT-QID@08,12,16,20 PRN Fluticasone Propion/Salmeterol 1 puff INHALATION RT-BID@799,199909/22/21 09/22/21 History [Advair 250-50 Diskus] INSULIN LISPRO (HumaLOG) [humaLOG] 22 units SQ TID@0700,1100,1600 09/22/21 09/22/21 History Metoprolol Tartrate [Lopressor] 12.5 mg PO BID@799,199909/22/21 09/22/21 History Potassium Chloride ER [K-Dur 20] 40 meq PO DAILY@79909/22/21 09/22/21 History Allergies Allergy/AdvReac Type Severity Reaction Status Date / Time No Known Allergies Allergy Verified 09/22/21 21:01 Physical Exam Vitals: Vital Signs Temp Pulse Resp BP Pulse Ox FiO2 09/23/21 11:00 60 09/23/21 09:07 60 09/23/21 07:30 72 22 109/60 94 L 09/23/21 07:00 72 22 86/61 95 70 09/23/21 06:30 73 22 95/63 94 L 09/23/21 06:00 73 22 91/53 95 09/23/21 05:37 70 09/23/21 05:30 71 22 87/54 95 09/23/21 05:00 77 22 104/63 95 09/23/21 04:35 80 09/23/21 04:30 73 22 108/65 96 09/23/21 04:00 98.4 F 71 22 98/55 95 80 09/23/21 03:30 73 22 103/62 95 09/23/21 03:00 70 22 105/60 95 09/23/21 02:30 74 22 95/57 95 09/23/21 02:00 72 22 98/59 95 09/23/21 01:30 73 22 93/55 96 09/23/21 01:00 77 22 89/55 96 09/23/21 00:30 98.5 F 82 22 102/66 96 80 09/23/21 00:00 80 09/22/21 23:19 80 09/22/21 22:59 98.9 F 83 24 113/68 94 L 09/22/21 21:00 90 22 122/54 94 L 09/22/21 20:00 89 22 128/85 94 L 09/22/21 19:35 80 09/22/21 19:15 96 22 95/65 94 L 09/22/21 18:22 80 09/22/21 18:21 104 H 09/22/21 18:12 101 H 09/22/21 18:00 105 H 22 129/90 09/22/21 17:52 100 09/22/21 17:25 100 09/22/21 17:02 97.7 F 128 H 17 96 Intake and Output 09/22/21 09/23/21 09/23/21 22:59 06:59 14:59 Intake Total 52.594 238.749 207.592 Output Total 310 50 Balance 52.594 -71.251 157.592 Intake: Intake, IV Titration 52.594 238.749 207.592 Amount Heparin Sod,Pork in 0.45% 138.749 111.251 NaCl 25,000 unit In 0.45 % NaCl 1 250ml.bag @ 16.9 UNITS/KG/HR 22.997 mls/ hr IV .[id number] [facility] Rx#: [id number] propofoL 1,000 mg In 52.594 100.000 96.341 Empty Bag 1 bag @ 5 MCG/ KG/MIN 4.082 mls/hr IV . Q24H [facility] Rx#:[id number] Output: Urine 310 50 Other: Voiding Method Indwelling Catheter Weight 136.078 kg 144.6 kg Limitations: Altered mental status and the patient is now intubated and mechanically ventilated. General appearance: Morbidly obese female on mechanical ventilation, unresponsive, grimaces only to deep painful stimuli Head exam: Atraumatic, normocephalic. Endotracheal tube and orogastric tube are intact. Eye exam: A poor gaze deviation of eyes, otherwise unremarkable. ENT exam: Dry mucous membranes, endotracheal tube orogastric tube are intact. Neck exam: Short obese neck, no neck masses no JVD no stridor. Respiratory exam: Symmetrical chest expansion diminished breath sounds at the bases scattered rhonchi, no wheezing. Cardiovascular Exam: Distant S1 and S2, no S3 gallop, no murmur, GI/Abdominal exam: Morbidly obese soft nontender no megaly no rebound no guarding. Extremities exam: Trace of bipedal edema. Neurological exam: (GCS = 7; patient is moving all 4 extremities spontaneously; grimaces to deep painful stimuli. Skin exam: Dry skin, no rashes. Results - Laboratory Findings CBC and BMP: 09/23/21 11:05 09/22/21 17:00 ABG ABG pH 7.48 (7.35-7.45) H 09/23/21 05:34 ABG pCO2 37 mmHg (35-45) 09/23/21 05:34 ABG pO2 114 mmHg (83-108) H 09/23/21 05:34 ABG O2 Saturation 99.7 % (94-97) H 09/23/21 05:34 PT/INR, D-dimer PT 11.1 sec (9.0-12.0) 09/22/21 20:19 INR 1.0 (<1.2) 09/22/21 20:19 D-Dimer 17.30 mg/L FEU (<0.60) H 09/22/21 17:00 Abnormal lab findings: Abnormal Labs 09/22/21 09/22/21 09/22/21 17:00 17:00 17:00 WBC 22.1 H RBC 5.90 H Hgb 16.2 H Hct 52.6 H MCHC 30.8 L Neutrophils # Neutrophils # (Manual) 11.40 H Lymphocytes # Lymphocytes # (Manual) 8.40 H Monocytes # (Manual) 1.99 H APTT D-Dimer 17.30 H ABG pH ABG pCO2 ABG pO2 ABG HCO3 ABG Total CO2 ABG O2 Saturation Carbon Dioxide 34 H Glucose 164 H POC Glucose (mg/dL) Plasma Lactic Acid Leonidas AST 74 H ALT 41 H Urine Appearance Urine Protein Urine Glucose (UA) Urine Blood Ur Leukocyte Esterase Urine RBC Urine WBC Urine WBC Clumps Urine Bacteria Hyaline Casts Urine Mucus 09/22/21 09/22/21 09/22/21 17:00 17:22 17:32 WBC RBC Hgb Hct MCHC Neutrophils # Neutrophils # (Manual) Lymphocytes # Lymphocytes # (Manual) Monocytes # (Manual) APTT D-Dimer ABG pH ABG pCO2 ABG pO2 ABG HCO3 ABG Total CO2 ABG O2 Saturation Carbon Dioxide Glucose POC Glucose (mg/dL) 139 H Plasma Lactic Acid Leonidas 5.8 H* AST ALT Urine Appearance Cloudy H Urine Protein 3+ H Urine Glucose (UA) Trace H Urine Blood Large H Ur Leukocyte Esterase Large H Urine RBC >182 H Urine WBC 99 H Urine WBC Clumps Moderate H Urine Bacteria Rare H Hyaline Casts 3 H Urine Mucus Rare H 09/22/21 09/22/21 09/22/21 18:02 20:19 20:19 WBC 20.2 H RBC 5.49 H Hgb Hct 47.4 H MCHC Neutrophils # 18.6 H Neutrophils # (Manual) Lymphocytes # 0.7 L Lymphocytes # (Manual) Monocytes # (Manual) APTT D-Dimer ABG pH 7.34 L ABG pCO2 62 H ABG pO2 ABG HCO3 33 H ABG Total CO2 35 H ABG O2 Saturation 98.0 H Carbon Dioxide Glucose POC Glucose (mg/dL) Plasma Lactic Acid Leonidas 2.2 H* AST ALT Urine Appearance Urine Protein Urine Glucose (UA) Urine Blood Ur Leukocyte Esterase Urine RBC Urine WBC Urine WBC Clumps Urine Bacteria Hyaline Casts Urine Mucus 09/23/21 09/23/21 09/23/21 00:17 01:15 05:34 WBC RBC Hgb Hct MCHC Neutrophils # Neutrophils # (Manual) Lymphocytes # Lymphocytes # (Manual) Monocytes # (Manual) APTT 94.6 H D-Dimer ABG pH 7.48 H ABG pCO2 ABG pO2 114 H ABG HCO3 27 H ABG Total CO2 28 H ABG O2 Saturation 99.7 H Carbon Dioxide Glucose POC Glucose (mg/dL) 171 H Plasma Lactic Acid Leonidas AST ALT Urine Appearance Urine Protein Urine Glucose (UA) Urine Blood Ur Leukocyte Esterase Urine RBC Urine WBC Urine WBC Clumps Urine Bacteria Hyaline Casts Urine Mucus 09/23/21 09/23/21 09/23/21 05:43 11:05 11:05 WBC 14.4 H RBC Hgb Hct MCHC Neutrophils # 13.0 H Neutrophils # (Manual) Lymphocytes # Lymphocytes # (Manual) Monocytes # (Manual) APTT 58.5 H D-Dimer ABG pH ABG pCO2 ABG pO2 ABG HCO3 ABG Total CO2 ABG O2 Saturation Carbon Dioxide Glucose POC Glucose (mg/dL) 188 H Plasma Lactic Acid Leonidas AST ALT Urine Appearance Urine Protein Urine Glucose (UA) Urine Blood Ur Leukocyte Esterase Urine RBC Urine WBC Urine WBC Clumps Urine Bacteria Hyaline Casts Urine Mucus 09/23/21 11:34 WBC RBC Hgb Hct MCHC Neutrophils # Neutrophils # (Manual) Lymphocytes # Lymphocytes # (Manual) Monocytes # (Manual) APTT D-Dimer ABG pH ABG pCO2 ABG pO2 ABG HCO3 ABG Total CO2 ABG O2 Saturation Carbon Dioxide Glucose POC Glucose (mg/dL) 191 H Plasma Lactic Acid Leonidas AST ALT Urine Appearance Urine Protein Urine Glucose (UA) Urine Blood Ur Leukocyte Esterase Urine RBC Urine WBC Urine WBC Clumps Urine Bacteria Hyaline Casts Urine Mucus - Diagnostic Findings Chest x-ray: image reviewed (By basilar atelectasis, possible infiltrates.) Assessment and Plan Assessment: Impression: Cardiac arrest, unclear etiology. Acute hypoxic respiratory failure secondary to cardiac arrest Acute urinary tract infection , sepsis, possible septic shock. Aspiration pneumonia is strongly suspected History of closed head injury and the patient is mentally challenged Morbid obesity History of obstructive sleep apnea syndrome Type 2 diabetes History of diastolic congestive heart failure Dyslipidemia Benign essential hypertension Elevated d-dimer, negative venous Doppler, VQ scan is pending in the meantime the patient is on heparin. Possible anoxic brain injury, patient had a down time of 10 minutes Recommendation: Continue ventilatory support patient is now on assist control rate of 22 tidal volume 400 FiO2 60% and PEEP of 8 Continue hemodynamic support patient will receive more fluid boluses, may start the patient on norepinephrine if necessary. Empiric antibiotics presently on Zosyn and vancomycin awaiting final blood cultures and urine cultures may stop vancomycin in the next 24 hours. Depending on the cultures. Neurologic evaluation, patient may have sustained anoxic brain injury Start the nutritional support/enteral feeding, patient to be seen by dietitian. GI and DVT prophylaxis. Venous access establishment and hemodynamic monitoring patient had a triple lumen catheter in place a femoral arterial line was also placed. Patient to be seen by cardiology for her cardiac arrest. Consider repeat CT of the brain and EEG. That is to be decided upon by neurology on the case. Consider discussing with legal guardian CODE STATUS, and decide on further treatment plan accordingly. Prognosis is extremely poor and guarded not to mention the patient has multiple premorbid conditions. Critical care time is over 55 minutes not including time spent on procedures. Time with Patient: Greater than 30
[2021-09-23 12:24] LABS: ALT 32 U/L (4-34); AST 46 U/L (14-36); African American GFR (CKD) >90 (>60 ml/min/1.73 sqM); Albumin 2.4 g/dL (3.5-5.0); Alkaline Phosphatase 82 U/L (38-126); Anion Gap 5 mmol/L; Blood Urea Nitrogen 14 mg/dL (7-17); Calcium 7.7 mg/dL (8.4-10.2); Carbon Dioxide 24 mmol/L (22-30); Chloride 109 mmol/L (98-107); Glucose 202 mg/dL (74-99); Non-African American GFR(CKD) >90 (>60 ml/min/1.73 sqM); Potassium 3.6 mmol/L (3.5-5.1); Sodium 138 mmol/L (137-145); Total Bilirubin 0.6 mg/dL (0.2-1.3); Total Protein 5.3 g/dL (6.3-8.2)
--- NOTE | 2021-09-23 13:21 | OP ---
OPERATIVE REPORT OPERATIVE REPORT: Placement of a right femoral triple-lumen catheter. PREOPERATIVE DIAGNOSIS: Acute sepsis, septic shock. POSTOPERATIVE DIAGNOSIS: Acute sepsis, septic shock. ANESTHESIA USED: Two mL of 1% lidocaine. PROCEDURE DESCRIPTION: The patient was placed in supine position. The right groin was prepared in a sterile fashion and drapes were applied. The area was locally anesthetized. The right femoral vein was cannulated easily, and a guidewire was placed. The area around the guidewire was dilated. Then a triple-lumen catheter was inserted over the guidewire, and the guidewire was removed. Good blood flow was noted in the 3 different ports of the catheter. Line was secured using 3.0 silk stitch sutures. No complications. MMODL / IJN: [id number] /
--- NOTE | 2021-09-23 13:24 | OP ---
OPERATIVE REPORT OPERATIVE REPORT: Placement of right femoral arterial line. PREOPERATIVE DIAGNOSIS: Acute hypoxic respiratory failure, hypotension, sepsis. POSTOPERATIVE DIAGNOSIS: Acute hypoxic respiratory failure, hypotension, sepsis. ANESTHESIA USED: None deployed. PROCEDURE DESCRIPTION: The right groin was prepared in a sterile fashion. Drapes were applied. The right femoral artery was palpated, easily cannulated, and a guidewire was placed. A Cook's femoral catheter was placed over the guidewire, and the guidewire was removed. Good blood flow, good waveform noted. No complications. Line was secured using 3.0 silk sutures. MMODL / IJN: [id number] /
[2021-09-23] MEDS ORDERED: Potassium Replacement Protocol 1 EACH MISC MISCELLANE PRN (15:05)
[2021-09-23] MEDS: HEPARIN SOD,PORK IN 0.45% NACL 25,000 UNIT in 0.45% NACL 1 250ML.BAG IV SCH (15:15)
[2021-09-23] MEDS ORDERED: POTASSIUM BICARBONATE/CIT AC 20 MEQ TABLET.EFF NG-TUBE SCH (16:00)
[2021-09-23] MEDS: NOREPINEPHRINE 32 MG in SODIUM CHLORIDE 0.9% 218 ML IV SCH (16:07)
--- NOTE | 2021-09-23 16:35 | P.HPIM ---
History of Present Illness H&P Date: 09/23/21 Chief Complaint: Found unresponsive This is a 66-year-old patient, follows with Dr. Ray. Patient is at [facility] resident. He was found unresponsive at group home and fibula was performed for about 10 minutes by the staff. Patient was shocked with AED. When the EMS arrived patient has a sinus tachycardia with a good pulse. Placed on Assisted ventilation with BMV Patient is intubated in the ER. It was felt the patient has aspirated after the suctioning brown colored fluid. The patient is in ICU. On the ventilator. 60/8. While propofol drip and started on Levophed. She will also placed on IV heparin in the ER. Doppler ultrasound of the lower extremities was negative for DVT. Did not have a VQ scan done. Computed tomography scan could not be done because of large body habitus. Had a d-dimer symptoms. Spoke to patient's brother/guardian Luis. 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 Patient is able to speak the often times will miss out on words. Able to feed herself. Nonambulatory. Review of systems: Patient intubated Past medical history to include: CHF, diabetes, hypertension, hyperlipidemia, closed head injury in 1999. Has had 2 surgeries to release pressure on the brain. Depression anxiety/OCD. Social history: Previous smoker. Bed bound. Resident at [facility] Family history: Noncontributory to presentation Physical examination: VITAL SIGNS: 98, 77, 22, 90/52, 95% on the ventilator GENERAL: BMI 54.7, laying in bed, intubated, sedated. EYES: Pupils equal. Conjunctiva normal. HEENT: External appearance of nose and ears normal, oral cavity grossly normal. NECK: JVD unable to assess; masses not palpable. HEART: First and second heart sounds are normal; mild edema. LUNGS: Respiratory rate increased; diminished breath sounds. ABDOMEN: Soft, nontender, liver spleen not palpable, no masses palpable. PSYCH: Sedated, unable to assessl. MUSCULOSKELETAL:No Clubbing/cyanosis;muscles-grossly intact NEUROLOGICAL: [Cranial nerves grossly intact; no facial asymmetry, gag reflex present. Pupils are responding. Left-sided weakness DERMATOLOGICAL: area of redness and the skin for LYMPHATICS: No lymph nodes palpable in the axilla and neck. INVESTIGATIONS, reviewed in the clinical context: White count 20.2 hemoglobin 14.8 platelets 382 ABG: PH 7.3 pCO2 62 pO2 99 FiO2 100% lactic acid 5.8 AST 74 ALT 41 UA positive for nitrite, RBC, WBC,. Negative for nitrite COVID 19/R S/P/influenza type A type B: Not detected White count 22.1 hemoglobin 16.2 platelets 421 potassium 4 creatinine 0.7 EKG tracing personally reviewed by me-sinus tachycardia, [address] segment changes Chest x-ray film personally reviewed by me-/portable: Decreased penetration. Possible infiltrates Assessment and plan: -Possible cardiopulmonary arrest, down by an unknown period patient received about 10 minutes of CPR and AeD. Return of circulation. 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 Doubt PE. Currently on IV heparin. Doppler ultrasound both extremity negative. We'll await input from pulmonary. -OCD On luvox -Full code Intubated. IV Zosyn. IV vancomycin. IV levo fed. Propofol. Critical. Being followed by feeder tender Advanced care planning: Patient's legal guardian is her brother Luis. . [facility]'s overall clinical condition was discussed in detail. DO NOT RESUSCITATE was discussed. He is leaning to was the same. He will discuss this further with his 2 brothers. And also his mother. Questions answered. Patient to remain full code for now. About 25 minutes was spent for ACP Past Medical History Past Medical History: Heart Failure, Diabetes Mellitus, Hyperlipidemia, Hypertension, Vascular Disorder Additional Past Medical History / Comment(s): hx hypokalemia, wound bottom of rt foot History of Any Multi-Drug Resistant Organisms: None Reported Past Surgical History: Unable to Obtain Additional Past Surgical History / Comment(s): closed head injury approx 1999. 2 surgeries to release pressure on brain Past Anesthesia/Blood Transfusion Reactions: Unable to Obtain Smoking Status: Former smoker - Past Family History Mother Family Medical History: Unable to Obtain Medications and Allergies Home Medications Medication Instructions Recorded Confirmed Type Aspirin [Adult Low Dose Aspirin EC] 81 mg PO DAILY@0800 01/26/16 09/22/21 History Calcium Carbonate/Vitamin D3 1 tab PO BID@0800,199901/26/16 09/22/21 History [Calcium 600-Vit D3 400 Caplet] Furosemide [Lasix] 40 mg PO DAILY@0800,159901/26/16 09/22/21 History Multivitamins, Thera [Multivitamin 1 tab PO HS 01/26/16 09/22/21 History (formulary)] Pravastatin Sodium [Pravachol] 20 mg PO HS@199901/26/16 09/22/21 History Spironolactone [Aldactone] 25 mg PO DAILY@0800 01/26/16 09/22/21 History fluvoxaMINE MALEATE [Luvox] 150 mg PO BID@0800,199901/26/16 09/22/21 History lisinopriL [Zestril] 10 mg PO DAILY@0800 01/26/16 09/22/21 History Sennosides-Docusate Sodium 2 tab PO BID@0800,199902/15/16 09/22/21 History [Senokot-S] Insulin Glargine [Lantus Vial] 50 unit SQ BID@0800,199901/31/18 09/22/21 History Albuterol Sulfate [Proventil Hfa] 2 puff INHALATION 09/22/21 09/22/21 History RT-QID@08,12,16,20 PRN Fluticasone Propion/Salmeterol 1 puff INHALATION RT-BID@0800,199909/22/21 09/22/21 History [Advair 250-50 Diskus] INSULIN LISPRO (HumaLOG) [humaLOG] 22 units SQ TID@0700,1100,1600 09/22/21 09/22/21 History Metoprolol Tartrate [Lopressor] 12.5 mg PO BID@0800,199909/22/21 09/22/21 History Potassium Chloride ER [K-Dur 20] 40 meq PO DAILY@0800 09/22/21 09/22/21 History Allergies Allergy/AdvReac Type Severity Reaction Status Date / Time No Known Allergies Allergy Verified 09/22/21 21:01 Physical Exam Vitals: Vital Signs Temp Pulse Resp BP Pulse Ox FiO2 09/23/21 09:07 60 09/23/21 07:30 72 22 109/60 94 L 09/23/21 07:00 72 22 86/61 95 70 09/23/21 06:30 73 22 95/63 94 L 09/23/21 06:00 73 22 91/53 95 09/23/21 05:37 70 09/23/21 05:30 71 22 87/54 95 09/23/21 05:00 77 22 104/63 95 09/23/21 04:35 80 09/23/21 04:30 73 22 108/65 96 09/23/21 04:00 98.4 F 71 22 98/55 95 80 09/23/21 03:30 73 22 103/62 95 09/23/21 03:00 70 22 105/60 95 09/23/21 02:30 74 22 95/57 95 09/23/21 02:00 72 22 98/59 95 09/23/21 01:30 73 22 93/55 96 09/23/21 01:00 77 22 89/55 96 09/23/21 00:30 98.5 F 82 22 102/66 96 80 09/23/21 00:00 80 09/22/21 23:19 80 09/22/21 22:59 98.9 F 83 24 113/68 94 L 09/22/21 21:00 90 22 122/54 94 L 09/22/21 20:00 89 22 128/85 94 L 09/22/21 19:35 80 09/22/21 19:15 96 22 95/65 94 L 09/22/21 18:22 80 09/22/21 18:21 104 H 09/22/21 18:12 101 H 09/22/21 18:00 105 H 22 129/90 09/22/21 17:52 100 09/22/21 17:25 100 09/22/21 17:02 97.7 F 128 H 17 96 Intake and Output 09/22/21 09/23/21 09/23/21 22:59 06:59 14:59 Intake Total 52.594 238.749 167.042 Output Total 310 50 Balance 52.594 -71.251 117.042 Intake: Intake, IV Titration 52.594 238.749 167.042 Amount Heparin Sod,Pork in 0.45% 138.749 111.251 NaCl 25,000 unit In 0.45 % NaCl 1 250ml.bag @ 16.9 UNITS/KG/HR 22.997 mls/ hr IV .[id number] [facility] Rx#: [id number] propofoL 1,000 mg In 52.594 100.000 55.791 Empty Bag 1 bag @ 5 MCG/ KG/MIN 4.082 mls/hr IV . Q24H [facility] Rx#:[id number] Output: Urine 310 50 Other: Voiding Method Indwelling Catheter Weight 136.078 kg 144.6 kg Results CBC & Chem 7: 09/23/21 11:05 09/23/21 11:05 Labs: Abnormal Lab Results - Last 24 Hours (Table) 09/22/21 09/22/21 09/22/21 Range/Units 17:00 17:00 17:00 WBC 22.1 H (3.8-10.6) k/uL RBC 5.90 H (3.80-5.40) m/uL Hgb 16.2 H (11.4-16.0) gm/dL Hct 52.6 H (34.0-46.0) % MCHC 30.8 L (31.0-37.0) g/dL Neutrophils # (1.3-7.7) k/uL Neutrophils # (Manual) 11.40 H (1.3-7.7) k/uL Lymphocytes # (1.0-4.8) k/uL Lymphocytes # (Manual) 8.40 H (1.0-4.8) k/uL Monocytes # (Manual) 1.99 H (0-1.0) k/uL APTT (22.0-30.0) sec D-Dimer 17.30 H (<0.60) mg/L FEU ABG pH (7.35-7.45) ABG pCO2 (35-45) mmHg ABG pO2 (83-108) mmHg ABG HCO3 (21-25) mmol/L ABG Total CO2 (19-24) mmol/L ABG O2 Saturation (94-97) % Carbon Dioxide 34 H (22-30) mmol/L Glucose 164 H (74-99) mg/dL POC Glucose (mg/dL) (70-110) mg/dL Plasma Lactic Acid Leonidas (0.7-2.0) mmol/L AST 74 H (14-36) U/L ALT 41 H (4-34) U/L Urine Appearance (Clear) Urine Protein (Negative) Urine Glucose (UA) (Negative) Urine Blood (Negative) Ur Leukocyte Esterase (Negative) Urine RBC (0-5) /hpf Urine WBC (0-5) /hpf Urine WBC Clumps (None) /hpf Urine Bacteria (None) /hpf Hyaline Casts (0-2) /lpf Urine Mucus (None) /hpf 09/22/21 09/22/21 09/22/21 Range/Units 17:00 17:22 17:32 WBC (3.8-10.6) k/uL RBC (3.80-5.40) m/uL Hgb (11.4-16.0) gm/dL Hct (34.0-46.0) % MCHC (31.0-37.0) g/dL Neutrophils # (1.3-7.7) k/uL Neutrophils # (Manual) (1.3-7.7) k/uL Lymphocytes # (1.0-4.8) k/uL Lymphocytes # (Manual) (1.0-4.8) k/uL Monocytes # (Manual) (0-1.0) k/uL APTT (22.0-30.0) sec D-Dimer (<0.60) mg/L FEU ABG pH (7.35-7.45) ABG pCO2 (35-45) mmHg ABG pO2 (83-108) mmHg ABG HCO3 (21-25) mmol/L ABG Total CO2 (19-24) mmol/L ABG O2 Saturation (94-97) % Carbon Dioxide (22-30) mmol/L Glucose (74-99) mg/dL POC Glucose (mg/dL) 139 H (70-110) mg/dL Plasma Lactic Acid Leonidas 5.8 H* (0.7-2.0) mmol/L AST (14-36) U/L ALT (4-34) U/L Urine Appearance Cloudy H (Clear) Urine Protein 3+ H (Negative) Urine Glucose (UA) Trace H (Negative) Urine Blood Large H (Negative) Ur Leukocyte Esterase Large H (Negative) Urine RBC >182 H (0-5) /hpf Urine WBC 99 H (0-5) /hpf Urine WBC Clumps Moderate H (None) /hpf Urine Bacteria Rare H (None) /hpf Hyaline Casts 3 H (0-2) /lpf Urine Mucus Rare H (None) /hpf 09/22/21 09/22/21 09/22/21 Range/Units 18:02 20:19 20:19 WBC 20.2 H (3.8-10.6) k/uL RBC 5.49 H (3.80-5.40) m/uL Hgb (11.4-16.0) gm/dL Hct 47.4 H (34.0-46.0) % MCHC (31.0-37.0) g/dL Neutrophils # 18.6 H (1.3-7.7) k/uL Neutrophils # (Manual) (1.3-7.7) k/uL Lymphocytes # 0.7 L (1.0-4.8) k/uL Lymphocytes # (Manual) (1.0-4.8) k/uL Monocytes # (Manual) (0-1.0) k/uL APTT (22.0-30.0) sec D-Dimer (<0.60) mg/L FEU ABG pH 7.34 L (7.35-7.45) ABG pCO2 62 H (35-45) mmHg ABG pO2 (83-108) mmHg ABG HCO3 33 H (21-25) mmol/L ABG Total CO2 35 H (19-24) mmol/L ABG O2 Saturation 98.0 H (94-97) % Carbon Dioxide (22-30) mmol/L Glucose (74-99) mg/dL POC Glucose (mg/dL) (70-110) mg/dL Plasma Lactic Acid Leonidas 2.2 H* (0.7-2.0) mmol/L AST (14-36) U/L ALT (4-34) U/L Urine Appearance (Clear) Urine Protein (Negative) Urine Glucose (UA) (Negative) Urine Blood (Negative) Ur Leukocyte Esterase (Negative) Urine RBC (0-5) /hpf Urine WBC (0-5) /hpf Urine WBC Clumps (None) /hpf Urine Bacteria (None) /hpf Hyaline Casts (0-2) /lpf Urine Mucus (None) /hpf 09/23/21 09/23/21 09/23/21 Range/Units 00:17 01:15 05:34 WBC (3.8-10.6) k/uL RBC (3.80-5.40) m/uL Hgb (11.4-16.0) gm/dL Hct (34.0-46.0) % MCHC (31.0-37.0) g/dL Neutrophils # (1.3-7.7) k/uL Neutrophils # (Manual) (1.3-7.7) k/uL Lymphocytes # (1.0-4.8) k/uL Lymphocytes # (Manual) (1.0-4.8) k/uL Monocytes # (Manual) (0-1.0) k/uL APTT 94.6 H (22.0-30.0) sec D-Dimer (<0.60) mg/L FEU ABG pH 7.48 H (7.35-7.45) ABG pCO2 (35-45) mmHg ABG pO2 114 H (83-108) mmHg ABG HCO3 27 H (21-25) mmol/L ABG Total CO2 28 H (19-24) mmol/L ABG O2 Saturation 99.7 H (94-97) % Carbon Dioxide (22-30) mmol/L Glucose (74-99) mg/dL POC Glucose (mg/dL) 171 H (70-110) mg/dL Plasma Lactic Acid Leonidas (0.7-2.0) mmol/L AST (14-36) U/L ALT (4-34) U/L Urine Appearance (Clear) Urine Protein (Negative) Urine Glucose (UA) (Negative) Urine Blood (Negative) Ur Leukocyte Esterase (Negative) Urine RBC (0-5) /hpf Urine WBC (0-5) /hpf Urine WBC Clumps (None) /hpf Urine Bacteria (None) /hpf Hyaline Casts (0-2) /lpf Urine Mucus (None) /hpf 09/23/21 Range/Units 05:43 WBC (3.8-10.6) k/uL RBC (3.80-5.40) m/uL Hgb (11.4-16.0) gm/dL Hct (34.0-46.0) % MCHC (31.0-37.0) g/dL Neutrophils # (1.3-7.7) k/uL Neutrophils # (Manual) (1.3-7.7) k/uL Lymphocytes # (1.0-4.8) k/uL Lymphocytes # (Manual) (1.0-4.8) k/uL Monocytes # (Manual) (0-1.0) k/uL APTT (22.0-30.0) sec D-Dimer (<0.60) mg/L FEU ABG pH (7.35-7.45) ABG pCO2 (35-45) mmHg ABG pO2 (83-108) mmHg ABG HCO3 (21-25) mmol/L ABG Total CO2 (19-24) mmol/L ABG O2 Saturation (94-97) % Carbon Dioxide (22-30) mmol/L Glucose (74-99) mg/dL POC Glucose (mg/dL) 188 H (70-110) mg/dL Plasma Lactic Acid Leonidas (0.7-2.0) mmol/L AST (14-36) U/L ALT (4-34) U/L Urine Appearance (Clear) Urine Protein (Negative) Urine Glucose (UA) (Negative) Urine Blood (Negative) Ur Leukocyte Esterase (Negative) Urine RBC (0-5) /hpf Urine WBC (0-5) /hpf Urine WBC Clumps (None) /hpf Urine Bacteria (None) /hpf Hyaline Casts (0-2) /lpf Urine Mucus (None) /hpf Microbiology - Last 24 Hours (Table) 09/22/21 17:34 Gram Stain - Preliminary Sputum Sputum Culture - Preliminary 09/22/21 17:32 Urine Culture - Preliminary Urine,Voided Thrombosis Risk Factor Assmnt - Choose All That Apply Each Factor Represents 1 point: Abnormal pulmonary function (COPD), Medical pt on bed rest, Obesity (BMI >25), Serious lung disease incl. pneumonia (< 1month) Each Risk Factor Represents 2 Points: Age 61-74 years Thrombosis Risk Factor Assessment Total Risk Factor Score: 6 Thrombosis Risk Factor Assessment Level: High Risk
[2021-09-23] MEDS: IPRATROPIUM-ALBUTEROL 3 ML NEB INHALATION SCH (19:34)
[2021-09-23] MEDS: NYSTATIN 100,000 UNIT/GM POWD 15 GM TOPICAL SCH (20:18)
[2021-09-23 23:25] LABS: Glucose,Whole Blood 187 mg/dL (70-110)
[2021-09-24] MEDS: PIPERACILLIN-TAZOBACTAM 3.375 GM in SODIUM CHLORIDE 0.9% 100 ML IVPB SCH ×4 (00:20→23:51)
[2021-09-24 05:21] LABS: Basophils # (A) 0.1 k/uL (0-0.2); Basophils % (A) 0 %; Eosinophils % (A) 0 %; HCT 41.3 % (34.0-46.0); HGB 12.8 gm/dL (11.4-16.0); Lymphocytes % (A) 8 %; MCH 26.4 pg (25.0-35.0); MCHC 31.1 g/dL (31.0-37.0); Mean Platelet Volume 7.8; Monocytes # (A) 0.6 k/uL (0-1.0); Monocytes % (A) 4 %; Neutrophils # (A) 11.9 k/uL (1.3-7.7); Neutrophils % (A) 87 %; Platelet Count 297 k/uL (150-450); RBC 4.86 m/uL (3.80-5.40); WBC 13.6 k/uL (3.8-10.6)
[2021-09-24 05:54] LABS: Glucose,Whole Blood 170 mg/dL (70-110)
[2021-09-24 05:55] LABS: ABG Base Excess 2.2 mmol/L; ABG HCO3 26 mmol/L (21-25); ABG Oxygen Saturation 98.3 % (94-97); ABG PCO2 37 mmHg (35-45); ABG PH 7.45 (7.35-7.45); ABG PO2 96 mmHg (83-108); ABG TCO2 27 mmol/L (19-24); Allen Test Performed? Yes
[2021-09-24 06:03] LABS: ALT 29 U/L (4-34); AST 37 U/L (14-36); African American GFR (CKD) >90 (>60 ml/min/1.73 sqM); Albumin 2.6 g/dL (3.5-5.0); Alkaline Phosphatase 79 U/L (38-126); Anion Gap 4 mmol/L; Blood Urea Nitrogen 13 mg/dL (7-17); Calcium 7.8 mg/dL (8.4-10.2); Carbon Dioxide 24 mmol/L (22-30); Chloride 111 mmol/L (98-107); Glucose 182 mg/dL (74-99); Non-African American GFR(CKD) >90 (>60 ml/min/1.73 sqM); Potassium 3.4 mmol/L (3.5-5.1); Sodium 139 mmol/L (137-145); Total Bilirubin 0.5 mg/dL (0.2-1.3); Total Protein 5.7 g/dL (6.3-8.2)
[2021-09-24] MEDS: POTASSIUM CHLORIDE 20 MEQ in WATER FOR INJECTION 1 100ML.BAG IVPB SCH ×2 (06:35→08:16)
[2021-09-24] MEDS: IPRATROPIUM-ALBUTEROL 3 ML NEB INHALATION SCH ×4 (07:09→19:04)
[2021-09-24] MEDS: HEPARIN SOD,PORK IN 0.45% NACL 25,000 UNIT in 0.45% NACL 1 250ML.BAG IV SCH ×2 (07:46→10:28)
--- NOTE | 2021-09-24 08:10 | XR ---
EXAMINATION TYPE: XR chest 1V portable DATE OF EXAM: 09/24/2021 COMPARISON: 09/23/2021 INDICATION: Tube placement TECHNIQUE: Single frontal view of the chest is obtained. FINDINGS: The heart size is mildly prominent. The pulmonary vasculature is normal. Left lower lobe infiltrate is present. Endotracheal tube is present above the michelle. Nasogastric tub e transverses the thorax. IMPRESSION: 1. Left lower lobe infiltrate. Continued follow-up is recommended
[2021-09-24] MEDS: PANTOPRAZOLE 40 MG/10 ML VIAL IVP SCH (08:11)
[2021-09-24] MEDS: CHLORHEXIDINE GLUCONATE 15 ML CUP MUCOUS MEM SCH ×2 (08:15→20:55)
[2021-09-24] MEDS: VANCOMYCIN 2,000 MG in SODIUM CHLORIDE 0.9% 500 ML 500 ML IVPB SCH (08:45)
[2021-09-24] MEDS: ENOXAPARIN 80 MG/0.8 ML SYRINGE SQ SCH ×2 (10:29→20:56)
[2021-09-24] MEDS: NYSTATIN 100,000 UNIT/GM POWD 15 GM TOPICAL SCH ×2 (10:29→20:55)
--- NOTE | 2021-09-24 11:14 | P.CRDCN ---
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 Patient resides at [facility] and apparently had been found unresponsive without a pulse. CPR was initiated and AED was placed with recommendations for shock and patient received 1 shock. Patient was still unresponsive when EMS arrived with monitor showing sinus tachycardia and therefore intubated and sedated. ROSC was achieved. Currently she is seen in the ICU and per nursing was following some commands this morning. Blood pressures remain stable off of any vasopressors. No significant arrhythmias noted on telemetry. Blood work shows white blood cell count 22, hemoglobin 16, d-dimer 17, lactic acid 5.8, AST 74, ALT is 41, troponin 0.0121, BNP 81, urinalysis with increased leukocyte esterase, increased red blood cells and increased white blood cells. EKG shows sinus tachycardia no significant ST or T wave abnormalities. Venous Doppler shows no lower extremity DVT. Chest x-ray shows cardiomegaly and low lung volumes with right mid and lower lung infiltrate or atelectasis however repeat x-ray this morning showing concern of left infiltrate. REVIEW OF SYSTEMS At the time of my exam: Unable to perform secondary to intubated and sedated. PHYSICAL EXAMINATION Vital signs reviewed. CONSTITUTIONAL: No apparent distress, obese, intubated and sedated HEENT: Head is normocephalic. Pupils are equal, round. Sclerae anicteric. Mucous membranes of the mouth are moist. No JVD. No carotid bruit. CHEST EXAMINATION: Lungs are clear to auscultation. No chest wall tenderness is noted on palpation or with deep breathing. HEART EXAMINATION: Regular rate and rhythm. S1, S2 heard. No murmurs, gallops or rub. ABDOMEN: Soft, nontender. Positive bowel sounds. EXTREMITIES: 2+ peripheral pulses, no lower extremity edema and no calf tenderness. NEUROLOGIC EXAMINATION: Patient is sedated ASSESSMENT 1. Cardiac arrest with apparent defibrillation 1 with AED 2. Elevated d-dimer 3. Reported history of congestive heart failure 4. Diabetes mellitus type 2 5. Hypertension 6. Status post closed head injury with craniotomies, hydrocephalus and mood disorders since in [facility] 7. Lactic acidosis 8. Leukocytosis, urinary tract infection 9. Questionable lung infiltrate, questionable aspiration PLAN Reported defibrillation by AED however sinus rhythm by the time EMS had arrived. No further episodes of any arrhythmias. Check 2-D echo to evaluate left ventr icular function. Monitor neurologic progress. Continue supportive care. Check repeat Troponin for completeness however no significant preceding angina symptoms. Further recommendations to follow. Past Medical History Past Medical History: Heart Failure, Diabetes Mellitus, Hyperlipidemia, Hypertension, Vascular Disorder Additional Past Medical History / Comment(s): hx hypokalemia, wound bottom of rt foot History of Any Multi-Drug Resistant Organisms: None Reported Past Surgical History: Unable to Obtain Additional Past Surgical History / Comment(s): closed head injury approx 1999. 2 surgeries to release pressure on brain Past Anesthesia/Blood Transfusion Reactions: Unable to Obtain Smoking Status: Former smoker - Past Family History Mother Family Medical History: Unable to Obtain Medications and Allergies Home Medications Medication Instructions Recorded Confirmed Type Aspirin [Adult Low Dose Aspirin EC] 81 mg PO DAILY@0800 01/26/16 09/22/21 History Calcium Carbonate/Vitamin D3 1 tab PO BID@0800,199901/26/16 09/22/21 History [Calcium 600-Vit D3 400 Caplet] Furosemide [Lasix] 40 mg PO DAILY@0800,1600 01/26/16 09/22/21 History Multivitamins, Thera [Multivitamin 1 tab PO HS 01/26/16 09/22/21 History (formulary)] Pravastatin Sodium [Pravachol] 20 mg PO HS@199901/26/16 09/22/21 History Spironolactone [Aldactone] 25 mg PO DAILY@0800 01/26/16 09/22/21 History fluvoxaMINE MALEATE [Luvox] 150 mg PO BID@0800,199901/26/16 09/22/21 History lisinopriL [Zestril] 10 mg PO DAILY@0800 01/26/16 09/22/21 History Sennosides-Docusate Sodium 2 tab PO BID@0800,199902/15/16 09/22/21 History [Senokot-S] Insulin Glargine [Lantus Vial] 50 unit SQ BID@08,199901/31/18 09/22/21 History Albuterol Sulfate [Proventil Hfa] 2 puff INHALATION 09/22/21 09/22/21 History RT-QID@08,12,16,20 PRN Fluticasone Propion/Salmeterol 1 puff INHALATION RT-BID@799,199909/22/21 09/22/21 History [Advair 250-50 Diskus] INSULIN LISPRO (HumaLOG) [humaLOG] 22 units SQ TID@0700,1100,1600 09/22/21 09/22/21 History Metoprolol Tartrate [Lopressor] 12.5 mg PO BID@799,199909/22/21 09/22/21 History Potassium Chloride ER [K-Dur 20] 40 meq PO DAILY@79909/22/21 09/22/21 History Allergies Allergy/AdvReac Type Severity Reaction Status Date / Time No Known Allergies Allergy Verified 09/22/21 21:01 Physical Exam Vitals: Vital Signs Temp Pulse Resp Pulse Ox FiO2 09/24/21 10:58 60 09/24/21 10:54 50 09/24/21 10:00 58 L 22 96 09/24/21 09:10 50 09/24/21 09:00 64 22 94 L 60 09/24/21 08:00 59 L 25 H 98 60 09/24/21 07:25 54 L 09/24/21 07:10 50 L 09/24/21 07:00 48 L 22 98 60 09/24/21 06:30 48 L 22 98 09/24/21 06:00 49 L 22 97 09/24/21 05:30 52 L 22 98 09/24/21 05:00 53 L 22 99 09/24/21 04:41 60 09/24/21 04:30 53 L 22 98 09/24/21 04:00 97.6 F 48 L 22 98 60 09/24/21 03:30 48 L 22 98 09/24/21 03:00 48 L 22 98 09/24/21 02:30 49 L 22 97 09/24/21 02:00 49 L 22 97 09/24/21 01:30 49 L 22 98 09/24/21 01:00 50 L 22 98 09/24/21 00:30 52 L 22 97 09/24/21 00:17 60 09/24/21 00:00 97.8 F 57 L 22 97 60 09/23/21 23:30 53 L 22 97 09/23/21 23:02 53 L 23 97 09/23/21 23:00 52 L 22 96 09/23/21 22:30 53 L 22 97 09/23/21 22:00 54 L 22 96 09/23/21 21:30 57 L 22 96 09/23/21 21:00 59 L 22 96 09/23/21 20:30 65 22 97 09/23/21 20:01 56 L 09/23/21 20:00 97.5 F L 55 L 22 97 60 09/23/21 19:42 60 09/23/21 19:31 60 09/23/21 19:30 59 L 22 97 09/23/21 19:00 60 22 97 09/23/21 18:30 58 L 22 97 09/23/21 18:00 61 22 97 09/23/21 17:30 64 22 97 09/23/21 17:00 65 22 98 60 09/23/21 16:30 63 22 96 60 09/23/21 16:00 97.5 F L 64 22 97 60 09/23/21 15:31 60 09/23/21 15:30 66 22 97 60 09/23/21 15:00 64 2 L 96 60 09/23/21 14:30 61 0 L 96 09/23/21 14:00 62 0 L 96 09/23/21 13:30 61 22 96 09/23/21 13:00 61 22 95 09/23/21 12:30 63 22 96 09/23/21 12:00 97.0 F L 70 22 96 60 09/23/21 11:30 64 22 96 Intake and Output 09/23/21 09/24/21 09/24/21 22:59 06:59 14:59 Intake Total 1200.000 986.177 457.602 Output Total 340 580 525 Balance 860.000 406.177 -67.398 Intake: IV 1000 600 250 0.9% Normal Saline @ 400 400 150 50mls/hr Piperacillin-Tazobactam 3 100 100 .375 gm In Sodium Chloride 0.9% 100 ml @ 200 mls/hr IVPB [facility]CE [facility] Rx#:[id number] Potassium Chloride 20 meq 100 100 In Water For Injection 1 100ml.bag @ 50 mls/hr IVPB Q2H [facility] Rx#: [id number] Vancomycin 2,000 mg In 500 Sodium Chloride 0.9% 500 ml 500 ml @ 167 mls/hr IVPB [facility]CE [facility] Rx#: [id number] Intake, IV Titration 200.000 386.177 207.602 Amount Heparin Sod,Pork in 0.45% 167.398 82.602 NaCl 25,000 unit In 0.45 % NaCl 1 250ml.bag @ 16.9 UNITS/KG/HR 22.997 mls/ hr IV .[id number] [facility] Rx#: [id number] Piperacillin-Tazobactam 3 25.0 .375 gm In Sodium Chloride 0.9% 100 ml @ 25 mls/hr IVPB Q8HR [facility] Rx# :[id number] Vancomycin 2,000 mg In 100 Sodium Chloride 0.9% 500 ml 500 ml @ 167 mls/hr IVPB Q12H [facility] Rx#: [id number] propofoL 1,000 mg In 200.000 218.779 Empty Bag 1 bag @ 5 MCG/ KG/MIN 4.082 mls/hr IV . Q24H [facility] Rx#:[id number] Output: Urine 340 580 525 Other: Voiding Method Indwelling Catheter Indwelling Catheter Weight 147.8 kg ABP, PAP, CO, CI - Last 8 Hours Arterial Blood Pressure 128/65 Arterial Blood Pressure 142/76 Arterial Blood Pressure 124/69 Arterial Blood Pressure 129/66 Arterial Blood Pressure 118/60 Arterial Blood Pressure 114/58 Arterial Blood Pressure 128/61 Arterial Blood Pressure 119/56 Arterial Blood Pressure 123/61 Arterial Blood Pressure 117/59 Arterial Blood Pressure 111/56 Results 09/24/21 05:10 09/24/21 05:10 Cardiac Enzymes 09/23/21 09/24/21 Range/Units 11:05 05:10 AST 46 H 37 H (14-36) U/L Coagulation 09/23/21 09/23/21 09/24/21 Range/Units 11:05 23:20 08:04 APTT 58.5 H >200.0 H* 126.5 H* (22.0-30.0) sec CBC 09/23/21 09/24/21 Range/Units 11:05 05:10 WBC 14.4 H 13.6 H (3.8-10.6) k/uL RBC 4.69 4.86 (3.80-5.40) m/uL Hgb 12.9 12.8 (11.4-16.0) gm/dL Hct 40.4 41.3 (34.0-46.0) % Plt Count 293 297 (150-450) k/uL Comprehensive Metabolic Panel 09/23/21 09/24/21 Range/Units 11:05 05:10 Sodium 138 139 (137-145) mmol/L Potassium 3.6 3.4 L (3.5-5.1) mmol/L Chloride 109 H 111 H (98-107) mmol/L Carbon Dioxide 24 24 (22-30) mmol/L BUN 14 13 (7-17) mg/dL Creatinine 0.67 0.57 (0.52-1.04) mg/dL Glucose 202 H 182 H (74-99) mg/dL Calcium 7.7 L 7.8 L (8.4-10.2) mg/dL AST 46 H 37 H (14-36) U/L ALT 32 29 (4-34) U/L Alkaline Phosphatase 82 79 (38-126) U/L Total Protein 5.3 L 5.7 L (6.3-8.2) g/dL Albumin 2.4 L 2.6 L (3.5-5.0) g/dL Current Medications Generic Name Dose Route Start Last Admin Trade Name Freq PRN Reason Stop Dose Admin Albuterol/Ipratropium 3 ml 09/23/21 20:00 09/24/21 10:58 Ipratropium-Albuterol 3 Ml Neb INHALATION 3 ml RT-QID [facility] Administration Chlorhexidine Gluconate 15 ml 09/23/21 09:00 09/24/21 08:15 Chlorhexidine Gluconate 15 Ml Cup MUCOUS MEM 15 ml BID [facility] Administration Enoxaparin Sodium 80 mg 09/24/21 09:30 09/24/21 10:29 Enoxaparin 80 Mg/0.8 Ml Syringe SQ 80 mg Q12HR [facility] Administration Propofol 1,000 mg/ IV Solution 100 mls @ 4.082 mls/hr 09/22/21 17:30 09/24/21 06:34 IV 25 mcg/kg/min .Q24H [facility] 20.412 mls/hr Titration Protocol 5 MCG/KG/MIN Piperacillin Sod/Tazobactam 100 mls @ 25 mls/hr 09/23/21 09:00 09/24/21 08:10 Sod 3.375 gm/ Sodium Chloride IVPB 25 mls/hr Q8HR [facility] Administration Protocol Norepinephrine Bitartrate 32 250 mls @ 3.389 mls/hr 09/23/21 10:30 09/23/21 16:07 mg/ Sodium Chloride IV Not Given .Q24H [facility] Protocol 0.05 MCG/KG/MIN Miscellaneous Information 1 each 09/23/21 15:05 Potassium Replacement Protocol 1 Each Misc MISCELLANE DAILY PRN Per Protocol Protocol Nystatin 1 applic 09/23/21 21:00 09/24/21 10:29 Nystatin 100,000 Unit/Gm Powd 15 Gm TOPICAL 1 applic BID [facility] Administration Protocol Pantoprazole Sodium 40 mg 09/22/21 19:45 09/24/21 08:11 Pantoprazole 40 Mg/10 Ml Vial IVP 40 mg DAILY [facility] Administration Intake and Output 09/23/21 09/24/21 09/24/21 22:59 06:59 14:59 Intake Total 1200.000 986.177 457.602 Output Total 340 580 525 Balance 860.000 406.177 -67.398 Intake: IV 1000 600 250 0.9% Normal Saline @ 400 400 150 50mls/hr Piperacillin-Tazobactam 3 100 100 .375 gm In Sodium Chloride 0.9% 100 ml @ 200 mls/hr IVPB ONCE [facility] Rx#:[id number] Potassium Chloride 20 meq 100 100 In Water For Injection 1 100ml.bag @ 50 mls/hr IVPB Q2H [facility] Rx#: [id number] Vancomycin 2,000 mg In 500 Sodium Chloride 0.9% 500 ml 500 ml @ 167 mls/hr IVPB ONCE [facility] Rx#: [id number] Intake, IV Titration 200.000 386.177 207.602 Amount Heparin Sod,Pork in 0.45% 167.398 82.602 NaCl 25,000 unit In 0.45 % NaCl 1 250ml.bag @ 16.9 UNITS/KG/HR 22.997 mls/ hr IV .[id number] [facility] Rx#: [id number] Piperacillin-Tazobactam 3 25.0 .375 gm In Sodium Chloride 0.9% 100 ml @ 25 mls/hr IVPB Q8HR [facility] Rx# :[id number] Vancomycin 2,000 mg In 100 Sodium Chloride 0.9% 500 ml 500 ml @ 167 mls/hr IVPB Q12H [facility] Rx#: [id number] propofoL 1,000 mg In 200.000 218.779 Empty Bag 1 bag @ 5 MCG/ KG/MIN 4.082 mls/hr IV . Q24H [facility] Rx#:[id number] Output: Urine 340 580 525 Other: Voiding Method Indwelling Catheter Indwelling Catheter Weight 147.8 kg 09/24/21 05:10 09/24/21 05:10
--- NOTE | 2021-09-24 11:16 | P.PN ---
Subjective Progress Note Date: 09/24/21 Principal diagnosis: Acute hypoxic respiratory failure/cardiac arrest This is a 66-year-old female, care home resident, patient has history of closed head injury back in 1999, and she had at least 2 brain surgeries/craniotomies related to her closed head injury and hydrocephalus. Patient is a poor historian, apparently she was found at the care home unresponsive and CPR was performed by nursing staff for about 10 minutes. By the time EMS arrived, patient has been shocked by nursing staff at the care home, and as soon as EMS arrived patient was noted to be in sinus tachycardia with strong pulse at the scene. Patient was ventilated using BVM. And she was brought into the ER. Patient apparently had some witnessed aspiration, she was suctioned, she was unresponsive, and as soon as she arrived to the ER, patient was intubated and mechanically ventilated. She was hemodynamically stable initially. She received fluid boluses. And later on her blood pressure was noted to be trending down. Did not require norepinephrine. But she was given more fluid boluses in the ICU. Blood pressure this morning is very marginal, patient will receive more fluid boluses and will likely start norepinephrine if necessary. In the meantime the patient is unresponsive she doesn't respond to any stimuli except she grimaces and withdraws to deep painful stimuli only. L abs this morning showed a pO2 of 114 pCO2 37 pH of 7.48, and this was done on assist control rate of 22, volume 400 FiO2 70% and PEEP of 5. I was able to cut down the FiO2 to 60%. And I increased the PEEP to 8. Patient is on propofol at 40 mcg/kg/m she is also on heparin because she was found to have elevated d- dimer negative venous Doppler, considering her obesity, and weight, patient would not fit in a CT for CT of the chest. Hence a VQ scan is pending. In the meantime the patient is on heparin which I placed on hold for an hour prior to placement a right femoral triple-lumen catheter and a right femoral arterial line. PTT is 58.8, therapeutic. Urinalysis is suggestive of urinary tract infection, cultures are pending in the meantime the patient received 1 dose of vancomycin and vancomycin will be adjusted by pharmacy we also recommended Zosyn until cultures become available. Patient again may have had witnessed aspiration before coming into the ER. Reevaluated today on 09/24/21, patient remains in the ICU intubated and mechanically ventilated. She is on assist control rate of 22 tidal volume 400 FiO2 60% and I cut it down to 50%, PEEP is at 8. ABG showed a pO2 of 96 pCO2 37 pH of 7.45, and this was on 60% FiO2 and PEEP of 8. Patient remains on heparin empirically, she had a negative venous Doppler, she had a significantly elevated d-dimer, it is almost impossible to have this lady undergo CT angiogram of the chest, hence I will keep her on Lovenox 80 mg subcu twice a day, I believe the VQ scan will be nondiagnostic and I will go ahead and cancel the VQ scan. Her WBC count is 13.6 hemoglobin is 12.8. Electrolytes are normal except for low potassium of 3.4, renal profile is normal. Patient remains on propofol at 30 mcg/kg/m, she is also on IV fluid in the form 0.9 normal saline at 50 mL per hour. Patient will be placed on enteral feeding today. And based on her over all picture, the patient is not ready to be weaned or extubated. It is actually difficult to assess her mental status because the patient does have poor mental status to begin with prior to all of this. She does have history of closed head injury and she will be a true challenge to wean and extubate. Today she is still requiring relatively high FiO2 and high PEEP, her chest x-ray continues to show evidence of bilateral interstitial infiltrates or edema. Patient remains on antibiotics empirically/Zosyn, and I will discontinue vancomycin. Objective - Vital Signs Vital signs: Vital Signs Temp 97.6 F 09/24/21 04:00 Pulse 60 09/24/21 10:58 Resp 22 09/24/21 10:00 BP 91/53 09/23/21 09:30 Pulse Ox 96 09/24/21 10:00 FiO2 50 09/24/21 10:54 Intake & Output 09/23/21 09/24/21 09/24/21 18:59 06:59 18:59 Intake Total 2534.809 1818.410 457.602 Output Total 365 785 525 Balance 2169.809 1033.410 -67.398 Weight 147.8 kg Intake: IV 2200 1300 250 0.9% Normal Saline @ 500 600 150 50mls/hr Piperacillin-Tazobactam 3 200 100 .375 gm In Sodium Chloride 0.9% 100 ml @ 200 mls/hr IVPB ONCE STA Rx#:[id number] Potassium Chloride 20 meq 100 100 In Water For Injection 1 100ml.bag @ 50 mls/hr IVPB Q2H [facility] Rx#: [id number] Sodium Chloride 0.9% 1, 1000 000 ml @ 999 mls/hr IV . Q1H1M [facility] Rx#:[id number] Vancomycin 2,000 mg In 500 500 Sodium Chloride 0.9% 500 ml 500 ml @ 167 mls/hr IVPB ONCE STA Rx#: [id number] Intake, IV Titration 334.809 518.410 207.602 Amount Heparin Sod,Pork in 0.45% 111.251 167.398 82.602 NaCl 25,000 unit In 0.45 % NaCl 1 250ml.bag @ 16.9 UNITS/KG/HR 22.997 mls/ hr IV .[id number] [facility] Rx#: [id number] Piperacillin-Tazobactam 3 25.0 .375 gm In Sodium Chloride 0.9% 100 ml @ 25 mls/hr IVPB Q8HR [facility] Rx# :[id number] Vancomycin 2,000 mg In 100 Sodium Chloride 0.9% 500 ml 500 ml @ 167 mls/hr IVPB Q12H [facility] Rx#: [id number] propofoL 1,000 mg In 223.558 351.012 Empty Bag 1 bag @ 5 MCG/ KG/MIN 4.082 mls/hr IV . Q24H [facility] Rx#:[id number] Output: Urine 365 785 525 Other: Voiding Method Indwelling Catheter Indwelling Catheter ABP, PAP, CO, CI - Last Documented Arterial Blood Pressure 128/65 - Exam Limitations: Altered mental status and the patient is now intubated and mechanically ventilated. General appearance: Morbidly obese female on mechanical ventilation, awake, does not follow any instructions. Moving her upper and lower extremities Head exam: Atraumatic, normocephalic, endotracheal tube and orogastric tube are intact. Eye exam: PERRLA, EOMI, nonicteric, no neck masses, moist mucous membranes ENT exam: Dry mucous membranes, endotracheal tube orogastric tube are intact. Neck exam: Short obese neck, no neck masses no JVD no stridor. Respiratory exam: Symmetrical chest expansion diminished breath sounds at the bases scattered rhonchi, no wheezing. Cardiovascular Exam: Distant S1 and S2, no S3 gallop, no murmur, GI/Abdominal exam: Morbidly obese soft nontender no megaly no rebound no guarding. Extremities exam: No clubbing edema or cyanosis. Neurological exam: Opens eyes, does not respond to any verbal stimuli, moving all her upper and lower extremities none spontaneously.. Skin exam: No rashes - Labs CBC & Chem 7: 09/24/21 05:10 09/24/21 05:10 Labs: Abnormal Lab Results - Last 24 Hours (Table) 09/23/21 09/23/21 09/23/21 Range/Units 11:05 11:05 11:05 WBC 14.4 H (3.8-10.6) k/uL Neutrophils # 13.0 H (1.3-7.7) k/uL APTT 58.5 H (22.0-30.0) sec ABG HCO3 (21-25) mmol/L ABG Total CO2 (19-24) mmol/L ABG O2 Saturation (94-97) % Potassium (3.5-5.1) mmol/L Chloride 109 H (98-107) mmol/L Glucose 202 H (74-99) mg/dL POC Glucose (mg/dL) (70-110) mg/dL Calcium 7.7 L (8.4-10.2) mg/dL AST 46 H (14-36) U/L Total Protein 5.3 L (6.3-8.2) g/dL Albumin 2.4 L (3.5-5.0) g/dL Procalcitonin (0.02-0.09) ng/mL 09/23/21 09/23/21 09/23/21 Range/Units 11:05 11:34 23:20 WBC (3.8-10.6) k/uL Neutrophils # (1.3-7.7) k/uL APTT >200.0 H* (22.0-30.0) sec ABG HCO3 (21-25) mmol/L ABG Total CO2 (19-24) mmol/L ABG O2 Saturation (94-97) % Potassium (3.5-5.1) mmol/L Chloride (98-107) mmol/L Glucose (74-99) mg/dL POC Glucose (mg/dL) 191 H (70-110) mg/dL Calcium (8.4-10.2) mg/dL AST (14-36) U/L Total Protein (6.3-8.2) g/dL Albumin (3.5-5.0) g/dL Procalcitonin 0.46 H (0.02-0.09) ng/mL 09/23/21 09/24/21 09/24/21 Range/Units 23:23 05:10 05:10 WBC 13.6 H (3.8-10.6) k/uL Neutrophils # 11.9 H (1.3-7.7) k/uL APTT (22.0-30.0) sec ABG HCO3 (21-25) mmol/L ABG Total CO2 (19-24) mmol/L ABG O2 Saturation (94-97) % Potassium 3.4 L (3.5-5.1) mmol/L Chloride 111 H (98-107) mmol/L Glucose 182 H (74-99) mg/dL POC Glucose (mg/dL) 187 H (70-110) mg/dL Calcium 7.8 L (8.4-10.2) mg/dL AST 37 H (14-36) U/L Total Protein 5.7 L (6.3-8.2) g/dL Albumin 2.6 L (3.5-5.0) g/dL Procalcitonin (0.02-0.09) ng/mL 09/24/21 09/24/21 09/24/21 Range/Units 05:50 05:52 08:04 WBC (3.8-10.6) k/uL Neutrophils # (1.3-7.7) k/uL APTT 126.5 H* (22.0-30.0) sec ABG HCO3 26 H (21-25) mmol/L ABG Total CO2 27 H (19-24) mmol/L ABG O2 Saturation 98.3 H (94-97) % Potassium (3.5-5.1) mmol/L Chloride (98-107) mmol/L Glucose (74-99) mg/dL POC Glucose (mg/dL) 170 H (70-110) mg/dL Calcium (8.4-10.2) mg/dL AST (14-36) U/L Total Protein (6.3-8.2) g/dL Albumin (3.5-5.0) g/dL Procalcitonin (0.02-0.09) ng/mL Microbiology - Last 24 Hours (Table) 09/22/21 17:34 Gram Stain - Final Sputum Sputum Culture - Final 09/23/21 21:23 Nasal Screen MRSA/MSSA - Preliminary Nasal Swab 09/22/21 17:32 Urine Culture - Preliminary Urine,Voided Gram Neg Bacilli 09/22/21 20:19 Blood Culture - Preliminary Blood No Growth after 24 hours 09/22/21 20:21 Blood Culture - Preliminary Blood No Growth after 24 hours 09/22/21 17:00 Blood Culture - Preliminary Blood No Growth after 24 hours 09/22/21 17:15 Blood Culture - Preliminary Blood No Growth after 24 hours Assessment and Plan Assessment: Impression: Cardiac arrest, unclear etiology. Acute hypoxic respiratory failure secondary to cardiac arrest Acute urinary tract infection , sepsis, possible septic shock. Patient remains on Zosyn, urine culture is showing gram-negative bacilli, blood cultures are negative so far. 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 Possible anoxic brain injury, patient had a down time of 10 minutes Recommendation: Continue ventilatory support cut down FiO2 to 50% and PEEP PEEP at 8. Continue hemodynamic support, patient is not requiring any norepinephrine. Empiric antibiotics presently on Zosyn, discontinue vancomycin and continue Zosyn Neurologic evaluation, patient may have sustained anoxic brain injury Nutritional support/enteral feeding GI and DVT prophylaxis. Neurology to assess for anoxic brain injury Patient will be difficult to wean and extubate, hence CODE STATUS may have to be addressed with the legal guardian, and I have a strong feeling if the code remains full code, the patient may eventually require tracheostomy and PEG tube placement Prognosis is extremely poor and guarded not to mention the patient has multiple premorbid conditions. Critical care time over 30 minutes Time with Patient: Greater than 30
[2021-09-24 11:28] LABS: Glucose,Whole Blood 139 mg/dL (70-110)
[2021-09-24] MEDS: HYDROmorphone 0.5 MG/0.5 ML SYRINGE IVP PRN (12:24)
--- NOTE | 2021-09-24 12:36 | P.CNNES ---
History of Present Illness Consult date: 09/23/21 Requesting physician: Herminia Toledo Reason for Consult: Cardiac arrest History of Present Illness: Patient is a 66-year-old female came to the hospital by ambulance yesterday at 5 PM for a cardiac arrest. Patient at present is intubated, sedated on propofol 35 mcg/g/m. Per EMS, patient was found unresponsive at the [facility] and CPR was performed for about 10 minutes by shelter staff. Per EMS, the patient was shocked by an AED prior to their arrival. Per EMS, the patient has been in sinus tachycardia with a strong pulse since they got on the scene. Per EMS, they were assisting ventilation with a BVM. Patient has history of a stroke but she is normally alert. He had gag reflex. Patient may have aspirated. Patient was brought to the ER where she was intubated. EMS flow sheet not available in the chart. Patient's initial vitals documented were blood pressure 95/65 pulse rate 96, at 7:15 PM. Patient's WBC 22.1 hemoglobin 16.2, platelets 421. PT/PTT normal, Chem-7 is normal. Lactate 5.8, AST 74 ALT 41, troponin negative. UA shows large amount of leukocyte esterase and > 182 WBC influenza screen, RSV and coronal virus PCR negative CT head showed no acute intracranial process. Nonspecific white matter changes that are consistent with chronic small vessel ischemia. Ex vacuo dilation of the left lateral ventricle and third ventricle. I personally reviewed CT head, agree with the findings. EKG shows sinus tachycardia, incomplete right bundle- branch block. Chest x-ray showed cardiomegaly with a retrocardiac infiltrate. Correlate for atelectasis or pleural effusion. EKG shows sinus tachycardia. Venous Doppler of lower extremities negative for DVT. 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 She was alcoholic. She slipped on the ice, went unresponsive. At baseline she has difficulty with speech, as she does not get right words out. She is bedbound. A Simon lift is used to lift her up. She is not compliant with the physical therapy. She has left-sided weakness at baseline. Review of Systems ROS unobtainable: due to endotracheal tube, due to mental status Past Medical History Past Medical History: Heart Failure, Diabetes Mellitus, Hyperlipidemia, Hypertension, Vascular Disorder Additional Past Medical History / Comment(s): hx hypokalemia, wound bottom of rt foot History of Any Multi-Drug Resistant Organisms: None Reported Past Surgical History: Unable to Obtain Additional Past Surgical History / Comment(s): closed head injury approx 1999. 2 surgeries to release pressure on brain Past Anesthesia/Blood Transfusion Reactions: Unable to Obtain Smoking Status: Former smoker - Past Family History Mother Family Medical History: Unable to Obtain Medications and Allergies Home Medications Medication Instructions Recorded Confirmed Type Aspirin [Adult Low Dose Aspirin EC] 81 mg PO DAILY@0800 01/26/16 09/22/21 History Calcium Carbonate/Vitamin D3 1 tab PO BID@0800,199901/26/16 09/22/21 History [Calcium 600-Vit D3 400 Caplet] Furosemide [Lasix] 40 mg PO DAILY@0800,159901/26/16 09/22/21 History Multivitamins, Thera [Multivitamin 1 tab PO HS 01/26/16 09/22/21 History (formulary)] Pravastatin Sodium [Pravachol] 20 mg PO HS@199901/26/16 09/22/21 History Spironolactone [Aldactone] 25 mg PO DAILY@0800 01/26/16 09/22/21 History fluvoxaMINE MALEATE [Luvox] 150 mg PO BID@0800,199901/26/16 09/22/21 History lisinopriL [Zestril] 10 mg PO DAILY@0800 01/26/16 09/22/21 History Sennosides-Docusate Sodium 2 tab PO BID@0800,199902/15/16 09/22/21 History [Senokot-S] Insulin Glargine [Lantus Vial] 50 unit SQ BID@0800,199901/31/18 09/22/21 History Albuterol Sulfate [Proventil Hfa] 2 puff INHALATION 09/22/21 09/22/21 History RT-QID@08,,, PRN Fluticasone Propion/Salmeterol 1 puff INHALATION RT-BID@0800,199909/22/21 09/22/21 History [Advair 250-50 Diskus] INSULIN LISPRO (HumaLOG) [humaLOG] 22 units SQ TID@0700,1100,1600 09/22/21 09/22/21 History Metoprolol Tartrate [Lopressor] 12.5 mg PO BID@08,199909/22/21 09/22/21 History Potassium Chloride ER [K-Dur 20] 40 meq PO DAILY@79909/22/21 09/22/21 History Allergies Allergy/AdvReac Type Severity Reaction Status Date / Time No Known Allergies Allergy Verified 09/22/21 21:01 Physical Examination - Vital Signs Vital Signs: Vital Signs Temp Pulse Resp BP Pulse Ox FiO2 09/23/21 11:00 60 09/23/21 09:07 60 09/23/21 07:30 72 22 109/60 94 L 09/23/21 07:00 72 22 86/61 95 70 09/23/21 06:30 73 22 95/63 94 L 09/23/21 06:00 73 22 91/53 95 09/23/21 05:37 70 09/23/21 05:30 71 22 87/54 95 09/23/21 05:00 77 22 104/63 95 09/23/21 04:35 80 09/23/21 04:30 73 22 108/65 96 09/23/21 04:00 98.4 F 71 22 98/55 95 80 09/23/21 03:30 73 22 103/62 95 09/23/21 03:00 70 22 105/60 95 09/23/21 02:30 74 22 95/57 95 09/23/21 02:00 72 22 98/59 95 09/23/21 01:30 73 22 93/55 96 09/23/21 01:00 77 22 89/55 96 09/23/21 00:30 98.5 F 82 22 102/66 96 80 09/23/21 00:00 80 09/22/21 23:19 80 09/22/21 22:59 98.9 F 83 24 113/68 94 L 09/22/21 21:00 90 22 122/54 94 L 09/22/21 20:00 89 22 128/85 94 L 09/22/21 19:35 80 09/22/21 19:15 96 22 95/65 94 L 09/22/21 18:22 80 09/22/21 18:21 104 H 09/22/21 18:12 101 H 09/22/21 18:00 105 H 22 129/90 09/22/21 17:52 100 09/22/21 17:25 100 09/22/21 17:02 97.7 F 128 H 17 96 Intake and Output 09/22/21 09/23/21 09/23/21 22:59 06:59 14:59 Intake Total 52.594 238.749 207.592 Output Total 310 50 Balance 52.594 -71.251 157.592 Intake: Intake, IV Titration 52.594 238.749 207.592 Amount Heparin Sod,Pork in 0.45% 138.749 111.251 NaCl 25,000 unit In 0.45 % NaCl 1 250ml.bag @ 16.9 UNITS/KG/HR 22.997 mls/ hr IV .[id number] [facility] Rx#: [id number] propofoL 1,000 mg In 52.594 100.000 96.341 Empty Bag 1 bag @ 5 MCG/ KG/MIN 4.082 mls/hr IV . Q24H [facility] Rx#:[id number] Output: Urine 310 50 Other: Voiding Method Indwelling Catheter Weight 136.078 kg 144.6 kg Patient is an elderly female, who is intubated, sedated with propofol 35 mcg/kg/m. Patient is morbidly obese. Patient is unresponsive to calling her name. She is sedated on ventilator. Patient does not open her eyes, but does make facial grimacing very prominent with painful stimuli as below. No seizure type activity noticed involving cranial region or extremities On cranial examination, pupils are equal, round and reacting to light, visual hudson cannot be tested. Patient has positive gag and cough. Oculocephalics are absent. Corneals are absent. Other cranial nerves cannot be checked. On muscle strength testing, patient did not squeeze hands to commands. Patient withdraws both upper extremities equally to painful stimuli. She withdraws right lower extremity much better than the left lower extremity. Deep tendon reflexes are (right/left) biceps 1/2, brachioradialis 1/3, knees 0/0, plantars are upgoing bilaterally. Sensory to touch cannot be assessed, and response to painful stimuli as above. Cerebellar functions and gait cannot be tested. Tone is equal. On general examination, there is no carotid bruit or murmur, S1-S2 audible. Abdomen is soft nontender. Chest is clear. Peripheral pulses are present. No edema. Results - Laboratory Findings CBC and BMP: 09/24/21 05:10 09/24/21 05:10 Abnormal Lab Findings: Abnormal Labs 09/22/21 09/22/21 09/22/21 17:00 17:00 17:00 WBC 22.1 H RBC 5.90 H Hgb 16.2 H Hct 52.6 H MCHC 30.8 L Neutrophils # Neutrophils # (Manual) 11.40 H Lymphocytes # Lymphocytes # (Manual) 8.40 H Monocytes # (Manual) 1.99 H APTT D-Dimer 17.30 H ABG pH ABG pCO2 ABG pO2 ABG HCO3 ABG Total CO2 ABG O2 Saturation Chloride Carbon Dioxide 34 H Glucose 164 H POC Glucose (mg/dL) Plasma Lactic Acid Leonidas Calcium AST 74 H ALT 41 H Total Protein Albumin Urine Appearance Urine Protein Urine Glucose (UA) Urine Blood Ur Leukocyte Esterase Urine RBC Urine WBC Urine WBC Clumps Urine Bacteria Hyaline Casts Urine Mucus 09/22/21 09/22/21 09/22/21 17:00 17:22 17:32 WBC RBC Hgb Hct MCHC Neutrophils # Neutrophils # (Manual) Lymphocytes # Lymphocytes # (Manual) Monocytes # (Manual) APTT D-Dimer ABG pH ABG pCO2 ABG pO2 ABG HCO3 ABG Total CO2 ABG O2 Saturation Chloride Carbon Dioxide Glucose POC Glucose (mg/dL) 139 H Plasma Lactic Acid Leonidas 5.8 H* Calcium AST ALT Total Protein Albumin Urine Appearance Cloudy H Urine Protein 3+ H Urine Glucose (UA) Trace H Urine Blood Large H Ur Leukocyte Esterase Large H Urine RBC >182 H Urine WBC 99 H Urine WBC Clumps Moderate H Urine Bacteria Rare H Hyaline Casts 3 H Urine Mucus Rare H 09/22/21 09/22/21 09/22/21 18:02 20:19 20:19 WBC 20.2 H RBC 5.49 H Hgb Hct 47.4 H MCHC Neutrophils # 18.6 H Neutrophils # (Manual) Lymphocytes # 0.7 L Lymphocytes # (Manual) Monocytes # (Manual) APTT D-Dimer ABG pH 7.34 L ABG pCO2 62 H ABG pO2 ABG HCO3 33 H ABG Total CO2 35 H ABG O2 Saturation 98.0 H Chloride Carbon Dioxide Glucose POC Glucose (mg/dL) Plasma Lactic Acid Leonidas 2.2 H* Calcium AST ALT Total Protein Albumin Urine Appearance Urine Protein Urine Glucose (UA) Urine Blood Ur Leukocyte Esterase Urine RBC Urine WBC Urine WBC Clumps Urine Bacteria Hyaline Casts Urine Mucus 09/23/21 09/23/21 09/23/21 00:17 01:15 05:34 WBC RBC Hgb Hct MCHC Neutrophils # Neutrophils # (Manual) Lymphocytes # Lymphocytes # (Manual) Monocytes # (Manual) APTT 94.6 H D-Dimer ABG pH 7.48 H ABG pCO2 ABG pO2 114 H ABG HCO3 27 H ABG Total CO2 28 H ABG O2 Saturation 99.7 H Chloride Carbon Dioxide Glucose POC Glucose (mg/dL) 171 H Plasma Lactic Acid Leonidas Calcium AST ALT Total Protein Albumin Urine Appearance Urine Protein Urine Glucose (UA) Urine Blood Ur Leukocyte Esterase Urine RBC Urine WBC Urine WBC Clumps Urine Bacteria Hyaline Casts Urine Mucus 09/23/21 09/23/21 09/23/21 05:43 11:05 11:05 WBC 14.4 H RBC Hgb Hct MCHC Neutrophils # 13.0 H Neutrophils # (Manual) Lymphocytes # Lymphocytes # (Manual) Monocytes # (Manual) APTT D-Dimer ABG pH ABG pCO2 ABG pO2 ABG HCO3 ABG Total CO2 ABG O2 Saturation Chloride 109 H Carbon Dioxide Glucose 202 H POC Glucose (mg/dL) 188 H Plasma Lactic Acid Leonidas Calcium 7.7 L AST 46 H ALT Total Protein 5.3 L Albumin 2.4 L Urine Appearance Urine Protein Urine Glucose (UA) Urine Blood Ur Leukocyte Esterase Urine RBC Urine WBC Urine WBC Clumps Urine Bacteria Hyaline Casts Urine Mucus 09/23/21 09/23/21 11:05 11:34 WBC RBC Hgb Hct MCHC Neutrophils # Neutrophils # (Manual) Lymphocytes # Lymphocytes # (Manual) Monocytes # (Manual) APTT 58.5 H D-Dimer ABG pH ABG pCO2 ABG pO2 ABG HCO3 ABG Total CO2 ABG O2 Saturation Chloride Carbon Dioxide Glucose POC Glucose (mg/dL) 191 H Plasma Lactic Acid Leonidas Calcium AST ALT Total Protein Albumin Urine Appearance Urine Protein Urine Glucose (UA) Urine Blood Ur Leukocyte Esterase Urine RBC Urine WBC Urine WBC Clumps Urine Bacteria Hyaline Casts Urine Mucus Assessment and Plan Assessment: * Cardiac arrest with downtime of 10 minutes. It is about 24 hours post cardiac arrest, and patient is withdrawing to painful stimuli with grimacing fairly meaningfully. Patient's sedated however. * Acute respiratory failure due to above, on mechanical ventilation. * Morbid obesity * CHF * Diabetes type 2 * Hypertension * History of closed head injury with craniotomies, hydrocephalus * Possible aspiration. Plan: * 24 hours post cardiac arrest, patient is withdrawing to painful stimuli and grimacing fairly meaningfully. Patient does have some baseline deficits from previous head injury 25 years ago. * EEG will be performed. * Medical management as per IM and critical care. * DVT prophylaxis: Patient on Lovenox 80 mg every 12 hours. * Neurology will continue to follow. Thank you for the consult.
[2021-09-24] MEDS: NOREPINEPHRINE 32 MG in SODIUM CHLORIDE 0.9% 218 ML IV SCH (12:45)
[2021-09-24] MEDS ORDERED: POTASSIUM BICARBONATE/CIT AC 20 MEQ TABLET.EFF NG-TUBE SCH (16:00)
[2021-09-24] MEDS ORDERED: SODIUM CHLORIDE 0.9% 1,000 ML IV ONE ×3 (17:03→19:05)
--- NOTE | 2021-09-24 17:04 | P.PN ---
Progress Note - Text Progress Note Date: 09/24/21 Chief Complaint: Found unresponsive This is a 66-year-old patient, follows with Dr. Ray. Patient is at [facility] resident. He was found unresponsive at group home and fibula was performed for about 10 minutes by the staff. Patient was shocked with AED. When the EMS arrived patient has a sinus tachycardia with a good pulse. Placed on Assisted ventilation with BMV Patient is intubated in the ER. It was felt the patient has aspirated after the suctioning brown colored fluid. The patient is in ICU. On the ventilator. 60/8. While propofol drip and started on Levophed. She will also placed on IV heparin in the ER. Doppler ultrasound of the lower extremities was negative for DVT. Did not have a VQ scan done. Computed tomography scan could not be done because of large body habitus. Had a d-dimer symptoms. Spoke to patient's brother/guardian Luis. 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 Patient is able to speak the often times will miss out on words. Able to feed herself. Nonambulatory. Admitted with cardiopulmonary arrest, aspiration pneumonia causing sepsis, septic shock, ICU. Intubated. propofol. Vancomycin, Zosyn. September 24: ICU: Intubated. Drips include to prevent. Changed from IV heparin to subcu Lovenox. Creamy secretions from the tracheostomy. Nurse called me this afternoon, patient's brother guardian made the patient DO NOT RESUSCITATE Active Medications Albuterol/Ipratropium (Ipratropium-Albuterol 3 Ml Neb) 3 ml INHALATION RT-QID [facility] Last Admin: 09/24/21 15:27 Dose: 3 ml Chlorhexidine Gluconate (Chlorhexidine Gluconate 15 Ml Cup) 15 ml MUCOUS MEM BID [facility] Last Admin: 09/24/21 08:15 Dose: 15 ml Enoxaparin Sodium (Enoxaparin 80 Mg/0.8 Ml Syringe) 80 mg SQ Q12HR [facility] Last Admin: 09/24/21 10:29 Dose: 80 mg Hydromorphone HCl (Hydromorphone 0.5 Mg/0.5 Ml Syringe) 0.5 mg IVP Q3HR PRN PRN Reason: Pain Last Admin: 09/24/21 12:24 Dose: 0.5 mg Propofol 1,000 mg/ IV Solution 100 mls @ 4.082 mls/hr IV .Q24H [facility]; Protocol Last Titration: 09/24/21 14:00 Dose: 40 mcg/kg/min, 32.659 mls/hr Piperacillin Sod/Tazobactam (Sod 3.375 gm/ Sodium Chloride) 100 mls @ 25 mls/hr IVPB Q8HR [facility]; Protocol Last Admin: 09/24/21 15:56 Dose: 25 mls/hr Norepinephrine Bitartrate 32 (mg/ Sodium Chloride) 250 mls @ 3.389 mls/hr IV .Q24H [facility]; Protocol Last Admin: 09/24/21 12:45 Dose: Not Given Miscellaneous Information (Potassium Replacement Protocol 1 Each Misc) 1 each MISCELLANE DAILY PRN; Protocol PRN Reason: Per Protocol Nystatin (Nystatin 100,000 Unit/Gm Powd 15 Gm) 1 applic TOPICAL BID [facility]; Protocol Last Admin: 09/24/21 10:29 Dose: 1 applic Pantoprazole Sodium (Pantoprazole 40 Mg/10 Ml Vial) 40 mg IVP DAILY [facility] Last Admin: 09/24/21 08:11 Dose: 40 mg Past medical history to include: CHF, diabetes, hypertension, hyperlipidemia, closed head injury in 1999. Has had 2 surgeries to release pressure on the brain. Depression anxiety/OCD. Social history: Previous smoker. Bed bound. Resident at [facility] Family history: Noncontributory to presentation Physical examination: VITAL SIGNS: 96.9, 90, 22, 98/52, 95% on the ventilator GENERAL: laying in bed, intubated, sedated. EYES: Pupils equal. Conjunctiva normal. HEENT: External appearance of nose and ears normal, oral cavity grossly normal. NECK: JVD unable to assess; masses not palpable. HEART: First and second heart sounds are normal; mild edema. LUNGS: Respiratory rate increased; diminished breath sounds. ABDOMEN: Soft, nontender, liver spleen not palpable, no masses palpable. PSYCH: Sedated, unable to assessl. MUSCULOSKELETAL:No Clubbing/cyanosis;muscles-grossly intact NEUROLOGICAL: [Cranial nerves grossly intact; no facial asymmetry, gag reflex present. Pupils are responding. Left-sided weakness DERMATOLOGICAL: area of redness underskin folds INVESTIGATIONS, reviewed in the clinical context: September 24: Obesity 13.6 hemoglobin 12.8 platelets 27 potassium 3.4 creatinine 0.57 White count 20.2 hemoglobin 14.8 platelets 382 ABG: PH 7.3 pCO2 62 pO2 99 FiO2 100% lactic acid 5.8 AST 74 ALT 41 UA positive for nitrite, RBC, WBC,. Negative for nitrite COVID 19/R S/P/influenza type A type B: Not detected White count 22.1 hemoglobin 16.2 platelets 421 potassium 4 creatinine 0.7 EKG tracing personally reviewed by me-sinus tachycardia, [address] segment changes Chest x-ray film personally reviewed by me-/portable: Decreased penetration. Possible infiltrates Assessment and plan: -Possible cardiopulmonary arrest, down by an unknown period patient received about 10 minutes of CPR and shock AeD. Return of circulation. 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 Doubt PE. . Doppler ultrasound both extremity negative. Subcu Lovenox -OCD On luvox -DO NOT RESUSCITATE -Guardian patient's brother Luis Intubated. IV Zosyn. IV vancomycin. Propofol. Critical. Being followed by lard renderer. Cardiology Remains critical
[2021-09-24 17:42] LABS: Glucose,Whole Blood 124 mg/dL (70-110)
[2021-09-24 23:58] LABS: Glucose,Whole Blood 123 mg/dL (70-110)
--- NOTE | 2021-09-25 02:37 | P.PN ---
Subjective Progress Note Date: 09/24/21 Patient was seen for a follow-up. Patient's brother was also present today. He concurred that patient had history of traumatic brain injury in the past, and has required craniotomy, and has chronic weakness of the left side. Patient is responding slightly more today as per examination below. Patient is on propofol between 35-45 mcg/kg/m. No seizure-like activity. Objective - Vital Signs Vital signs: Vital Signs Temp 95.9 F L 09/24/21 14:00 Pulse 83 09/24/21 15:38 Resp 22 09/24/21 15:00 BP 91/53 09/23/21 09:30 Pulse Ox 98 09/24/21 15:00 FiO2 50 09/24/21 15:22 Intake & Output 09/23/21 09/24/21 09/24/21 18:59 06:59 18:59 Intake Total 2534.809 1818.410 922.170 Output Total 365 785 950 Balance 2169.809 1033.410 -27.830 Weight 147.8 kg Intake: IV 2200 1300 550 0.9% Normal Saline @ 500 600 450 50mls/hr Piperacillin-Tazobactam 3 200 100 .375 gm In Sodium Chloride 0.9% 100 ml @ 200 mls/hr [facility] Rx#:[id number] Potassium Chloride 20 meq 100 100 In Water For Injection 1 100ml.bag @ 50 mls/hr IVPB Q2H [facility] Rx#: [id number] Sodium Chloride 0.9% 1, 1000 000 ml @ 999 mls/hr IV . Q1H1M [facility] Rx#:[id number] Vancomycin 2,000 mg In 500 500 Sodium Chloride 0.9% 500 ml 500 ml @ 167 mls/hr IVPB [facility] Rx#: [id number] Intake, IV Titration 334.809 518.410 372.170 Amount Heparin Sod,Pork in 0.45% 111.251 167.398 82.602 NaCl 25,000 unit In 0.45 % NaCl 1 250ml.bag @ 16.9 UNITS/KG/HR 22.997 mls/ hr IV .[id number] [facility] Rx#: [id number] Piperacillin-Tazobactam 3 25.0 .375 gm In Sodium Chloride 0.9% 100 ml @ 25 mls/hr IVPB Q8HR [facility] Rx# :[id number] Vancomycin 2,000 mg In 100 Sodium Chloride 0.9% 500 ml 500 ml @ 167 mls/hr IVPB Q12H [facility] Rx#: [id number] propofoL 1,000 mg In 223.558 351.012 164.568 Empty Bag 1 bag @ 5 MCG/ KG/MIN 4.082 mls/hr IV . Q24H [facility] Rx#:[id number] Output: Urine 365 785 950 Other: Voiding Method Indwelling Catheter Indwelling Catheter ABP, PAP, CO, CI - Last Documented Arterial Blood Pressure 114/61 - Exam Patient is intubated, sedated. Patient is on mechanical ventilator. Patient does not respond to calling her name. Patient's pupils are unequal, 3 mm on the left, 2 mm on the right. Both are not clearly reacting. Oculocephalics absent. Patient does have gag. On muscle strength testing, patient does squeeze both hands equally, consistently. Patient did wiggle her toes of right foot on command. Patient did not wiggle toes of the left foot, but her left leg is weak from baseline. No seizure-like activity. - Labs CBC & Chem 7: 09/24/21 05:10 09/24/21 11:35 Labs: Abnormal Lab Results - Last 24 Hours (Table) 09/23/21 09/23/21 09/23/21 Range/Units 11:05 23:20 23:23 WBC (3.8-10.6) k/uL Neutrophils # (1.3-7.7) k/uL APTT >200.0 H* (22.0-30.0) sec ABG HCO3 (21-25) mmol/L ABG Total CO2 (19-24) mmol/L ABG O2 Saturation (94-97) % Potassium (3.5-5.1) mmol/L Chloride (98-107) mmol/L Glucose (74-99) mg/dL POC Glucose (mg/dL) 187 H (70-110) mg/dL Calcium (8.4-10.2) mg/dL AST (14-36) U/L Troponin I (0.000-0.034) ng/mL Total Protein (6.3-8.2) g/dL Albumin (3.5-5.0) g/dL Procalcitonin 0.46 H (0.02-0.09) ng/mL 09/24/21 09/24/21 09/24/21 Range/Units 05:10 05:10 05:50 WBC 13.6 H (3.8-10.6) k/uL Neutrophils # 11.9 H (1.3-7.7) k/uL APTT (22.0-30.0) sec ABG HCO3 26 H (21-25) mmol/L ABG Total CO2 27 H (19-24) mmol/L ABG O2 Saturation 98.3 H (94-97) % Potassium 3.4 L (3.5-5.1) mmol/L Chloride 111 H (98-107) mmol/L Glucose 182 H (74-99) mg/dL POC Glucose (mg/dL) (70-110) mg/dL Calcium 7.8 L (8.4-10.2) mg/dL AST 37 H (14-36) U/L Troponin I (0.000-0.034) ng/mL Total Protein 5.7 L (6.3-8.2) g/dL Albumin 2.6 L (3.5-5.0) g/dL Procalcitonin (0.02-0.09) ng/mL 09/24/21 09/24/21 09/24/21 Range/Units 05:52 08:04 11:27 WBC (3.8-10.6) k/uL Neutrophils # (1.3-7.7) k/uL APTT 126.5 H* (22.0-30.0) sec ABG HCO3 (21-25) mmol/L ABG Total CO2 (19-24) mmol/L ABG O2 Saturation (94-97) % Potassium (3.5-5.1) mmol/L Chloride (98-107) mmol/L Glucose (74-99) mg/dL POC Glucose (mg/dL) 170 H 139 H (70-110) mg/dL Calcium (8.4-10.2) mg/dL AST (14-36) U/L Troponin I (0.000-0.034) ng/mL Total Protein (6.3-8.2) g/dL Albumin (3.5-5.0) g/dL Procalcitonin (0.02-0.09) ng/mL 09/24/21 Range/Units 11:35 WBC (3.8-10.6) k/uL Neutrophils # (1.3-7.7) k/uL APTT (22.0-30.0) sec ABG HCO3 (21-25) mmol/L ABG Total CO2 (19-24) mmol/L ABG O2 Saturation (94-97) % Potassium (3.5-5.1) mmol/L Chloride (98-107) mmol/L Glucose (74-99) mg/dL POC Glucose (mg/dL) (70-110) mg/dL Calcium (8.4-10.2) mg/dL AST (14-36) U/L Troponin I 0.049 H* (0.000-0.034) ng/mL Total Protein (6.3-8.2) g/dL Albumin (3.5-5.0) g/dL Procalcitonin (0.02-0.09) ng/mL Microbiology - Last 24 Hours (Table) 09/22/21 17:34 Gram Stain - Final Sputum Sputum Culture - Final 09/23/21 21:23 Nasal Screen MRSA/MSSA - Preliminary Nasal Swab 09/22/21 17:32 Urine Culture - Preliminary Urine,Voided Gram Neg Bacilli 09/22/21 20:19 Blood Culture - Preliminary Blood No Growth after 24 hours 09/22/21 20:21 Blood Culture - Preliminary Blood No Growth after 24 hours 09/22/21 17:00 Blood Culture - Preliminary Blood No Growth after 24 hours 09/22/21 17:15 Blood Culture - Preliminary Blood No Growth after 24 hours Assessment and Plan Assessment: * Cardiac arrest with downtime of 10 minutes. Today is day #2 post arrest. Patient is showing some meaningful response, following directions as mentioned above detail. Still very encephalopathic. * Acute respiratory failure due to above, on mechanical ventilation. * Morbid obesity * CHF * Diabetes type 2 * Hypertension * History of closed head injury with craniotomies, hydrocephalus * Possible aspiration. Plan: * Patient's examination has improved. Patient is following some directions, squeezes hands on command, and wiggles toes of the right foot. * Patient does have some baseline deficits from previous head injury 25 years ago, with weakness on the left side . * EEG in the morning * Consider repeating CT head. * Medical management as per IM and critical care. * DVT prophylaxis: Patient on Lovenox 80 mg every 12 hours. * Dr. Nav John Will resume neurology service in the morning.
[2021-09-25 05:04] LABS: Basophils % (A) 0 %; Eosinophils # (A) 0.1 k/uL (0-0.7); Eosinophils % (A) 1 %; HCT 38.6 % (34.0-46.0); HGB 12.2 gm/dL (11.4-16.0); Lymphocytes # (A) 1.2 k/uL (1.0-4.8); Lymphocytes % (A) 14 %; MCH 27.3 pg (25.0-35.0); MCHC 31.6 g/dL (31.0-37.0); MCV 86.5 fL (80.0-100.0); Mean Platelet Volume 8.3; Monocytes # (A) 0.6 k/uL (0-1.0); Monocytes % (A) 7 %; Neutrophils # (A) 6.6 k/uL (1.3-7.7); Neutrophils % (A) 78 %; Platelet Count 313 k/uL (150-450); RBC 4.46 m/uL (3.80-5.40); RDW 15.4 % (11.5-15.5); WBC 8.6 k/uL (3.8-10.6)
[2021-09-25 05:17] LABS: ALT 26 U/L (4-34); AST 28 U/L (14-36); African American GFR (CKD) >90 (>60 ml/min/1.73 sqM); Albumin 2.4 g/dL (3.5-5.0); Alkaline Phosphatase 68 U/L (38-126); Anion Gap 4 mmol/L; Blood Urea Nitrogen 13 mg/dL (7-17); Calcium 7.4 mg/dL (8.4-10.2); Carbon Dioxide 23 mmol/L (22-30); Chloride 114 mmol/L (98-107); Glucose 152 mg/dL (74-99); Non-African American GFR(CKD) >90 (>60 ml/min/1.73 sqM); Potassium 3.8 mmol/L (3.5-5.1); Sodium 141 mmol/L (137-145); Total Bilirubin 0.5 mg/dL (0.2-1.3); Total Protein 5.3 g/dL (6.3-8.2)
[2021-09-25 05:49] LABS: ABG Base Excess -0.2 mmol/L; ABG HCO3 25 mmol/L (21-25); ABG Oxygen Saturation 98.7 % (94-97); ABG PCO2 41 mmHg (35-45); ABG PH 7.39 (7.35-7.45); ABG PO2 115 mmHg (83-108); ABG TCO2 26 mmol/L (19-24); Allen Test Performed? Yes
--- NOTE | 2021-09-25 06:05 | XR ---
EXAMINATION TYPE: XR chest 1V portable DATE OF EXAM: 09/25/2021 CLINICAL HISTORY: Difficulty breathing progress study. TECHNIQUE: Single AP portable semiupright view of the chest is obtained. COMPARISON: Chest x-ray from one day earlier and older studies. FINDINGS: Stable endotracheal and orogastric tubes. Persistent cardiomegaly with bibasilar opacities and somewhat low lung volumes. Osseous structures ar e intact. IMPRESSION: Low lung volumes and cardiomegaly with bibasilar acute infiltrate and/or atelectasis are all redemonstrated. No significant change from 1 day earlier.
[2021-09-25] MEDS ORDERED: Potassium Replacement Protocol 1 EACH MISC MISCELLANE PRN (06:43)
[2021-09-25 06:48] LABS: Glucose,Whole Blood 156 mg/dL (70-110)
[2021-09-25] MEDS ORDERED: VANCOMYCIN TROUGH DUE 1 EACH MISC MISCELLANE ONE (07:00)
[2021-09-25] MEDS ORDERED: POTASSIUM BICARBONATE/CIT AC 20 MEQ TABLET.EFF NG-TUBE SCH ×4 (07:00→22:00)
--- NOTE | 2021-09-25 07:15 | P.PN ---
Subjective Progress Note Date: 09/25/21 Principal diagnosis: Cardiopulmonary arrest This is a 66-year-old female patient was morbidly obese as well as was multiple comorbid conditions including history of stroke with left sided weakness as well as diabetes and hypertension and also reported history of heart failure as well as multiple comorbid conditions was admitted to the hospital after she had a witnessed cardiopulmonary arrest at [facility]. AED recommended shock and the patient received a shock. Subsequently she was transferred to the hospital. The patient was seen this morning. She continues to be intubated on mechanical ventilation. She is currently sedated as well. Hemodynamically she is stable and not on any vasopressors. She has been maintaining normal sinus mechanism. The patient did not have any history of coronary artery disease but she has history of heart failure. The EF is unknown at this point. We are in process of getting an echocardiogram to assess ejection fraction. Currently also she is not on any antiarrhythmic medication. No details was kind of rhythm the patient had but AED recommended shock. I assume the rhythm was either V. fib or V. tach. Please note that d-dimer came in to be elevated. Computed tomography scan or VQ scan were not performed because of the patient's body habitus as well as instability when she presented. Currently she is on Lovenox after she was started on heparin IV. Objective - Vital Signs Vital signs: Vital Signs Temp 97.8 F 09/25/21 04:00 Pulse 84 09/25/21 07:00 Resp 22 09/25/21 07:00 BP 91/53 09/23/21 09:30 Pulse Ox 98 09/25/21 07:00 FiO2 50 09/25/21 04:00 Intake & Output 09/24/21 09/25/21 09/25/21 18:59 06:59 18:59 Intake Total 2114.670 2085.231 166.204 Output Total 1015 355 30 Balance 0544.729 2722.231 136.204 Weight 147.6 kg Intake: IV 700 1550 50 0.9% Normal Saline @ 600 550 50 50mls/hr Potassium Chloride 20 meq 100 In Water For Injection 1 100ml.bag @ 50 mls/hr IVPB Q2H [facility] Rx#: [id number] Sodium Chloride 0.9% 1, 1000 000 ml @ 999 mls/hr IV . Q1H1M [facility] Rx#:[id number] Intake, IV Titration 1384.670 355.231 76.204 Amount Heparin Sod,Pork in 0.45% 82.602 NaCl 25,000 unit In 0.45 % NaCl 1 250ml.bag @ 16.9 UNITS/KG/HR 22.997 mls/ hr IV .[id number] [facility] Rx#: [id number] Piperacillin-Tazobactam 3 37.5 .375 gm In Sodium Chloride 0.9% 100 ml @ 25 mls/hr IVPB Q8HR [facility] Rx# :[id number] Sodium Chloride 0.9% 1, 1000 000 ml @ 999 mls/hr IV . Q1H1M [facility] Rx#:[id number] Vancomycin 2,000 mg In 100 Sodium Chloride 0.9% 500 ml 500 ml @ 167 mls/hr IVPB Q12H [facility] Rx#: [id number] propofoL 1,000 mg In 164.568 355.231 76.204 Empty Bag 1 bag @ 5 MCG/ KG/MIN 4.082 mls/hr IV . Q24H [facility] Rx#:[id number] Tube Feeding 30 120 10 Other 60 30 Output: Urine 1015 355 30 Other: Voiding Method Indwelling Catheter Indwelling Catheter ABP, PAP, CO, CI - Last Documented Arterial Blood Pressure 108/54 - Constitutional General appearance: Present: no acute distress - Respiratory Respiratory: bilateral: diminished - Cardiovascular Rhythm: regular - Labs CBC & Chem 7: 09/25/21 04:50 09/25/21 04:50 Labs: Abnormal Lab Results - Last 24 Hours (Table) 09/24/21 09/24/21 09/24/21 Range/Units 08:04 11:27 11:35 APTT 126.5 H* (22.0-30.0) sec ABG pO2 (83-108) mmHg ABG Total CO2 (19-24) mmol/L ABG O2 Saturation (94-97) % Chloride (98-107) mmol/L Glucose (74-99) mg/dL POC Glucose (mg/dL) 139 H (70-110) mg/dL Calcium (8.4-10.2) mg/dL Troponin I 0.049 H* (0.000-0.034) ng/mL Total Protein (6.3-8.2) g/dL Albumin (3.5-5.0) g/dL 09/24/21 09/24/21 09/24/21 Range/Units 17:41 18:22 23:57 APTT (22.0-30.0) sec ABG pO2 (83-108) mmHg ABG Total CO2 (19-24) mmol/L ABG O2 Saturation (94-97) % Chloride (98-107) mmol/L Glucose (74-99) mg/dL POC Glucose (mg/dL) 124 H 123 H (70-110) mg/dL Calcium (8.4-10.2) mg/dL Troponin I 0.047 H* (0.000-0.034) ng/mL Total Protein (6.3-8.2) g/dL Albumin (3.5-5.0) g/dL 09/25/21 09/25/21 09/25/21 Range/Units 04:50 05:45 06:47 APTT (22.0-30.0) sec ABG pO2 115 H (83-108) mmHg ABG Total CO2 26 H (19-24) mmol/L ABG O2 Saturation 98.7 H (94-97) % Chloride 114 H (98-107) mmol/L Glucose 152 H (74-99) mg/dL POC Glucose (mg/dL) 156 H (70-110) mg/dL Calcium 7.4 L (8.4-10.2) mg/dL Troponin I (0.000-0.034) ng/mL Total Protein 5.3 L (6.3-8.2) g/dL Albumin 2.4 L (3.5-5.0) g/dL Microbiology - Last 24 Hours (Table) 09/22/21 17:32 Urine Culture - Final Urine,Voided Escherichia coli 09/22/21 20:19 Blood Culture - Preliminary Blood No Growth after 48 hours 09/22/21 20:21 Blood Culture - Preliminary Blood No Growth after 48 hours 09/22/21 17:15 Blood Culture - Preliminary Blood No Growth after 48 hours 09/22/21 17:00 Blood Culture - Preliminary Blood No Growth after 48 hours 09/22/21 17:34 Gram Stain - Final Sputum Sputum Culture - Final 09/23/21 21:23 Nasal Screen MRSA/MSSA - Preliminary Nasal Swab Assessment and Plan Assessment: Assessment #1 cardiopulmonary arrest. Patient received shock #2 elevated d-dimer. Rule out pulmonary embolism #3 morbid obesity #4 history of stroke with residual left-sided weakness #5 multiple comorbid conditions Plan #1 continue anticoagulation for now until further clarification about the persistence of venous thromboembolism #2 the echo which is an important component to assess the baseline ejection fra ction #3 continue ICU monitoring #4 follow-up with the patient #5 monitor electrolytes essentially potassium and magnesium
[2021-09-25] MEDS: IPRATROPIUM-ALBUTEROL 3 ML NEB INHALATION SCH ×5 (07:20→23:37)
[2021-09-25] MEDS: CHLORHEXIDINE GLUCONATE 15 ML CUP MUCOUS MEM SCH ×2 (08:10→20:42)
[2021-09-25] MEDS: ENOXAPARIN 80 MG/0.8 ML SYRINGE SQ SCH ×2 (08:10→20:42)
[2021-09-25] MEDS: PIPERACILLIN-TAZOBACTAM 3.375 GM in SODIUM CHLORIDE 0.9% 100 ML IVPB SCH ×2 (08:10→15:06)
[2021-09-25] MEDS: PANTOPRAZOLE 40 MG/10 ML VIAL IVP SCH (08:10)
[2021-09-25] MEDS: NYSTATIN 100,000 UNIT/GM POWD 15 GM TOPICAL SCH ×2 (08:11→20:42)
[2021-09-25] MEDS: NOREPINEPHRINE 32 MG in SODIUM CHLORIDE 0.9% 218 ML IV SCH (08:27)
[2021-09-25] MEDS ORDERED: FUROSEMIDE 10 MG/ML 10 ML VIAL IV STA (08:40)
--- NOTE | 2021-09-25 09:44 | P.PN ---
Subjective Progress Note Date: 09/25/21 Principal diagnosis: Respiratory failure. Acute hypoxic respiratory failure/cardiac arrest This is a 66-year-old female, [facility] resident, patient has history of closed head injury back in 1999, and she had at least 2 brain surgeries/craniotomies related to her closed head injury and hydrocephalus. Patient is a poor historian, apparently she was found at the correction unresponsive and CPR was performed by nursing staff for about 10 minutes. By the time EMS arrived, patient has been shocked by nursing staff at the correction, and as soon as EMS arrived patient was noted to be in sinus tachycardia with strong pulse at the scene. Patient was ventilated using BVM. And she was brought into the ER. Patient apparently had some witnessed aspiration, she was suctioned, she was unresponsive, and as soon as she arrived to the ER, patient was intubated and mechanically ventilated. She was hemodynamically stable initially. She received fluid boluses. And later on her blood pressure was noted to be trending down. Did not require norepinephrine. But she was given more fluid boluses in the ICU. Blood pressure this morning is very marginal, patient will receive more fluid boluses and will likely start norepinephrine if necessary. In the meantime the patient is unresponsive she doesn't respond to any stimuli except she grimaces and withdraws to deep painful stimuli only. Labs this morning showed a pO2 of 114 pCO2 37 pH of 7.48, and this was done on assist control rate of 22, volume 400 FiO2 70% and PEEP of 5. I was able to cut down the FiO2 to 60%. And I increased the PEEP to 8. Patient is on propofol at 40 mcg/kg/m she is also on heparin because she was found to have elevated d- dimer negative venous Doppler, considering her obesity, and weight, patient would not fit in a CT for CT of the chest. Hence a VQ scan is pending. In the meantime the patient is on heparin which I placed on hold for an hour prior to placement a right femoral triple-lumen catheter and a right femoral arterial line. PTT is 58.8, therapeutic. Urinalysis is suggestive of urinary tract infection, cultures are pending in the meantime the patient received 1 dose of vancomycin and vancomycin will be adjusted by pharmacy we also recommended Zosyn until cultures become available. Patient again may have had witnessed aspiration before coming into the ER. Reevaluated today on 09/24/21, patient remains in the ICU intubated and mechanically ventilated. She is on assist control rate of 22 tidal volume 400 FiO2 60% and I cut it down to 50%, PEEP is at 8. ABG showed a pO2 of 96 pCO2 37 pH of 7.45, and this was on 60% FiO2 and PEEP of 8. Patient remains on heparin empirically, she had a negative venous Doppler, she had a significantly elevated d-dimer, it is almost impossible to have this lady undergo CT angiogram of the chest, hence I will keep her on Lovenox 80 mg subcu twice a day, I believe the VQ scan will be nondiagnostic and I will go ahead and cancel the VQ scan. Her WBC count is 13.6 hemoglobin is 12.8. Electrolytes are normal except for low potassium of 3.4, renal profile is normal. Patient remains on propofol at 30 mcg/kg/m, she is also on IV fluid in the form 0.9 normal saline at 50 mL per hour. Patient will be placed on enteral feeding today. And based on her over all picture, the patient is not ready to be weaned or extubated. It is actually difficult to assess her mental status because the patient does have poor mental status to begin with prior to all of this. She does have history of closed head injury and she will be a true challenge to wean and extubate. Today she is still requiring relatively high FiO2 and high PEEP, her chest x-ray continues to show evidence of bilateral interstitial infiltrates or edema. Patient remains on antibiotics empirically/Zosyn, and I will discontinue vancomycin. Progress note dated 09/25/2021. This is a 66-year-old female admitted back on September 22. She came in with cardiac arrest, aspiration pneumonia, and sepsis. He was intubated on September 22. The patient remains on the mechanical ventilator. She's having an EEG today. Afterwards, we will do a daily interruption of sedation, and potentially a weaning trial. The patient is on the volume assist control, rate 22, tidal volume 400, FiO2 50%, and PEEP of 8. Blood gases show pO2 115, pCO2 of 41, and a pH 7.39. The patient is on propofol at 40 mcg/kg/m, saline at 50 mL an hour, and vital high protein at 20, with a goal of 50 mL an hour. Computed tomography scan of the brain was negative. EEG is pending. The patient was discovered to have a E. coli urinary tract infection. For that she is on Zosyn. Labs today include a white count of 8.6, hemoglobin 12.2, hematocrit 38.6, platelet count 313,000. Sodium 141, potassium 3.8, chlorides 114, CO2 23, BUN 13, and creatinine 0.67. Chest x-ray shows cardiomegaly, with low lung volumes, and bibasilar infiltrates or atelectasis. Objective - Vital Signs Vital signs: Vital Signs Temp 97.8 F 09/25/21 04:00 Pulse 80 09/25/21 07:34 Resp 22 09/25/21 07:00 BP 91/53 09/23/21 09:30 Pulse Ox 98 09/25/21 07:00 FiO2 50 09/25/21 07:10 Intake & Output 09/24/21 09/25/21 09/25/21 18:59 06:59 18:59 Intake Total 2114.670 2085.231 166.204 Output Total 1015 355 30 Balance 9953.862 6667.231 136.204 Weight 147.6 kg Intake: IV 700 1550 50 0.9% Normal Saline @ 600 550 50 50mls/hr Potassium Chloride 20 meq 100 In Water For Injection 1 100ml.bag @ 50 mls/hr IVPB Q2H [facility] Rx#: [id number] Sodium Chloride 0.9% 1, 1000 000 ml @ 999 mls/hr IV . Q1H1M [facility] Rx#:[id number] Intake, IV Titration 1384.670 355.231 76.204 Amount Heparin Sod,Pork in 0.45% 82.602 NaCl 25,000 unit In 0.45 % NaCl 1 250ml.bag @ 16.9 UNITS/KG/HR 22.997 mls/ hr IV .[id number] [facility] Rx#: [id number] Piperacillin-Tazobactam 3 37.5 .375 gm In Sodium Chloride 0.9% 100 ml @ 25 mls/hr IVPB Q8HR [facility] Rx# :[id number] Sodium Chloride 0.9% 1, 1000 000 ml @ 999 mls/hr IV . Q1H1M [facility] Rx#:[id number] Vancomycin 2,000 mg In 100 Sodium Chloride 0.9% 500 ml 500 ml @ 167 mls/hr IVPB Q12H [facility] Rx#: [id number] propofoL 1,000 mg In 164.568 355.231 76.204 Empty Bag 1 bag @ 5 MCG/ KG/MIN 4.082 mls/hr IV . Q24H [facility] Rx#:[id number] Tube Feeding 30 120 10 Other 60 30 Output: Urine 1015 355 30 Other: Voiding Method Indwelling Catheter Indwelling Catheter ABP, PAP, CO, CI - Last Documented Arterial Blood Pressure 108/54 - Exam No acute distress, sedated, with an orally placed endotracheal tube and NG tube. This patient is very obese. HEENT examination is grossly unremarkable. Neck supple. Full range of motion. No adenopathy thyromegaly or neck vein distention. Cardiovascular examination reveals regular rhythm rate. S1-S2 normal. No S3 or S4. No discernible murmur noted. Heart rate 80 bpm. Lungs reveal scattered bilateral rhonchi. Breath sounds are equal bilaterally. Saturations are 98%. Abdomen is obese, with bowel sounds. No masses. Extremities are intact. No cyanosis or clubbing. Mild edema. Skin is without rash or lesion. Neurologic examination cannot be adequately assessed. - Labs CBC & Chem 7: 09/25/21 04:50 09/25/21 04:50 Labs: Abnormal Lab Results - Last 24 Hours (Table) 09/24/21 09/24/21 09/24/21 Range/Units 11:27 11:35 17:41 ABG pO2 (83-108) mmHg ABG Total CO2 (19-24) mmol/L ABG O2 Saturation (94-97) % Chloride (98-107) mmol/L Glucose (74-99) mg/dL POC Glucose (mg/dL) 139 H 124 H (70-110) mg/dL Calcium (8.4-10.2) mg/dL Troponin I 0.049 H* (0.000-0.034) ng/mL Total Protein (6.3-8.2) g/dL Albumin (3.5-5.0) g/dL 09/24/21 09/24/21 09/25/21 Range/Units 18:22 23:57 04:50 ABG pO2 (83-108) mmHg ABG Total CO2 (19-24) mmol/L ABG O2 Saturation (94-97) % Chloride 114 H (98-107) mmol/L Glucose 152 H (74-99) mg/dL POC Glucose (mg/dL) 123 H (70-110) mg/dL Calcium 7.4 L (8.4-10.2) mg/dL Troponin I 0.047 H* (0.000-0.034) ng/mL Total Protein 5.3 L (6.3-8.2) g/dL Albumin 2.4 L (3.5-5.0) g/dL 09/25/21 09/25/21 Range/Units 05:45 06:47 ABG pO2 115 H (83-108) mmHg ABG Total CO2 26 H (19-24) mmol/L ABG O2 Saturation 98.7 H (94-97) % Chloride (98-107) mmol/L Glucose (74-99) mg/dL POC Glucose (mg/dL) 156 H (70-110) mg/dL Calcium (8.4-10.2) mg/dL Troponin I (0.000-0.034) ng/mL Total Protein (6.3-8.2) g/dL Albumin (3.5-5.0) g/dL Microbiology - Last 24 Hours (Table) 09/23/21 21:23 Nasal Screen MRSA/MSSA - Final Nasal Swab 09/22/21 17:32 Urine Culture - Final Urine,Voided Escherichia coli 09/22/21 20:19 Blood Culture - Preliminary Blood No Growth after 48 hours 09/22/21 20:21 Blood Culture - Preliminary Blood No Growth after 48 hours 09/22/21 17:15 Blood Culture - Preliminary Blood No Growth after 48 hours 09/22/21 17:00 Blood Culture - Preliminary Blood No Growth after 48 hours 09/22/21 17:34 Gram Stain - Final Sputum Sputum Culture - Final Assessment and Plan Assessment: History of cardiac arrest, September 22, status post intubation and mechanical ventilation, for respiratory failure, sepsis, and aspiration pneumonia. Acute hypoxemic respiratory failure. Escherichia coli urinary tract infection, with sepsis/septic shock. Aspiration pneumonia. History of closed head injury, patient mentioned challenge. Morbid obesity. History of obstructive sleep apnea syndrome. Type 2 diabetes mellitus. Hyperlipidemia. History of hypertension. Possible anoxic brain injury secondary to cardiac arrest. Plan: Plan dated 09/25/2021. The patient's tube feeds will increase to goal. In addition, the patient will have an EEG today. CAT scan of the brain was negative. She remains on Zosyn Escherichia coli urinary tract infection. Patient remains on sedation with prop ofol. After the EEG, the patient's propofol be weaned, and the patient will be given a daily interruption of sedation, and potentially a spontaneous breathing trial. Labs, x-rays, and medications are reviewed. The patient may have sustained significant anoxic brain injury. Continue GI and DVT prophylaxis. Additional recommendations and suggestions are forthcoming. Prognosis is certainly guarded. Time with Patient: Greater than 30
--- NOTE | 2021-09-25 10:10 | CA ---
Transthoracic Echo Report Name: Janneth Izaguirre Age: 66 Gender: F : 1955 Exam Date: 09/25/2021 07:45 Exam Location: [facility] Ht (in): 64 Wt (lb): 325 Ordering Physician: Rigoberto García DO ([id number]) Attending/Referring Phys: Occupational Therapist Assistant Amberly Stubbs RDCS Procedure CPT: Indications: assess heart Cardiac Hx: Technical Quality: Technically difficult study Contrast 1: Lumason Total Dose (mL): 3 Contrast 2: Total Dose (mL): MEASUREMENTS (Male / Female) Normal Values 2D ECHO LV Diastolic Diameter PLAX 3.3 cm 4.2 - 5.9 / 3.9 - 5.3 cm LV Systolic Diameter PLAX 2.7 cm IVS Diastolic Thickness 1.5 cm 0.6 - 1.0 / 0.6 - 0.9 cm LVPW Diastolic Thickness 1.2 cm 0.6 - 1.0 / 0.6 - 0.9 cm LV Relative Wall Thickness 0.8 RV Internal Dim ED PLAX 2.6 cm LA Systolic Diameter LX 2.9 cm 3.0 - 4.0 / 2.7 - 3.8 cm M-MODE Aortic Root Diameter MM 3.0 cm AV Cusp Separation MM 1.9 cm DOPPLER AV Peak Velocity 141.3 cm/s AV Peak Gradient 8.0 mmHg MV Area PHT 4.7 cm??? Mitral E Point Velocity 95.0 cm/s Mitral A Point Velocity 83.1 cm/s Mitral E to A Ratio 1.1 MV Deceleration Time 161.6 ms MV E' Velocity 6.4 cm/s Mitral E to MV E' Ratio 14.8 TR Peak Velocity 156.0 cm/s TR Peak Gradient 9.7 mmHg Right Ventricular Systolic Press 14.7 mmHg FINDINGS Left Ventricle Left ventricular ejection fraction is estimated at 55-60 %. Left ventricular cavity size normal. Moderate concentric left ventricular hypertrophy. Right Ventricle Normal right ventricular size and function. Right Atrium Normal right atrial size. Left Atrium Normal left atrial size. Mitral Valve Structurally normal mitral valve. No mitral stenosis, regurgitation or prolapse. Aortic Valve Aortic valve not well visualized. Tricuspid Valve Mild tricuspid regurgitation. Pulmonic Valve Pulmonic valve not well visualized. Pericardium Normal pericardium. No pericardial effusion. Aorta Normal size aortic root and proximal ascending aorta. CONCLUSIONS Technically difficult study was suboptimal acoustic windows, despite contrast echo Preserved LV size and systolic function. An 55-60% Likely increased LV mass Previewed by: Dr. Andrea Mcgarry MD (Electronically Signed) Final Date: 25 September 2021 10:09
--- NOTE | 2021-09-25 13:04 | P.PN ---
Subjective Progress Note Date: 09/25/21 I am seeing the patient for the first time during this hospital visit. Please refer to Dr. Payne's notes for further details. It seems the patient had cardiac arrest lasting for 10 minutes and has been show ing some response. Per the nurse, today the patient had holiday sedation early AM and was squeezing hand appropriately and knoding appropriately. But then had to restart her IV Propofol 40mcg/kg/min Objective - Vital Signs Vital signs: Vital Signs Temp 97.2 F L 09/25/21 08:00 Pulse 94 09/25/21 11:10 Resp 24 09/25/21 11:00 BP 91/53 09/23/21 09:30 Pulse Ox 96 09/25/21 11:00 FiO2 50 09/25/21 10:49 Intake & Output 09/24/21 09/25/21 09/25/21 18:59 06:59 18:59 Intake Total 2114.670 2085.231 421.935 Output Total 1015 355 90 Balance 1763.349 1883.231 331.935 Weight 147.6 kg 147.6 kg Intake: IV 700 1550 110 0.9% Normal Saline @ 600 550 110 50mls/hr Potassium Chloride 20 meq 100 In Water For Injection 1 100ml.bag @ 50 mls/hr IVPB Q2H [facility] Rx#: [id number] Sodium Chloride 0.9% 1, 1000 000 ml @ 999 mls/hr IV . Q1H1M [facility] Rx#:[id number] Intake, IV Titration 1384.670 355.231 271.935 Amount Heparin Sod,Pork in 0.45% 82.602 NaCl 25,000 unit In 0.45 % NaCl 1 250ml.bag @ 16.9 UNITS/KG/HR 22.997 mls/ hr IV .[id number] [facility] Rx#: [id number] Piperacillin-Tazobactam 3 37.5 100 .375 gm In Sodium Chloride 0.9% 100 ml @ 25 mls/hr IVPB Q8HR [facility] Rx# :[id number] Sodium Chloride 0.9% 1, 1000 000 ml @ 999 mls/hr IV . Q1H1M [facility] Rx#:[id number] Vancomycin 2,000 mg In 100 Sodium Chloride 0.9% 500 ml 500 ml @ 167 mls/hr IVPB Q12H [facility] Rx#: [id number] propofoL 1,000 mg In 164.568 355.231 171.935 Empty Bag 1 bag @ 5 MCG/ KG/MIN 4.082 mls/hr IV . Q24H [facility] Rx#:[id number] Tube Feeding 30 120 10 Other 60 30 Output: Urine 1015 355 90 Other: Voiding Method Indwelling Catheter Indwelling Catheter Indwelling Catheter ABP, PAP, CO, CI - Last Documented Arterial Blood Pressure 136/67 - Exam GENERAL: The patient is a morbid obese woman lying in bed and does not appear in acute distress. LUNG: Intubated on ventilator. NEUROLOGICAL: Limited. Is on IV Propofol 40mcg/kg/min Higher mental function: The patient is severely drowsy but minimally open her eyes to voice. Follows simple commands: moving her hands. Cranial nerves: The pupils are round, equal and reactive to light. Primary gaze is midline. No facial weakness. Has intact gag reflex. Is not breathing over the vent. Motor: The strength is moving bilateral hands (appears moving the right moving the left) but has restraints. Wiggling the right toes and not left. Patient has residual left sided weakness from prior. Cerebellum: Unable to assess. Sensation: Unable to assess light touch. - Labs CBC & Chem 7: 09/25/21 04:50 09/25/21 09:30 Labs: Abnormal Lab Results - Last 24 Hours (Table) 09/24/21 09/24/21 09/24/21 Range/Units 11:35 17:41 18:22 ABG pO2 (83-108) mmHg ABG Total CO2 (19-24) mmol/L ABG O2 Saturation (94-97) % Chloride (98-107) mmol/L Glucose (74-99) mg/dL POC Glucose (mg/dL) 124 H (70-110) mg/dL Calcium (8.4-10.2) mg/dL Troponin I 0.049 H* 0.047 H* (0.000-0.034) ng/mL Total Protein (6.3-8.2) g/dL Albumin (3.5-5.0) g/dL 09/24/21 09/25/21 09/25/21 Range/Units 23:57 04:50 05:45 ABG pO2 115 H (83-108) mmHg ABG Total CO2 26 H (19-24) mmol/L ABG O2 Saturation 98.7 H (94-97) % Chloride 114 H (98-107) mmol/L Glucose 152 H (74-99) mg/dL POC Glucose (mg/dL) 123 H (70-110) mg/dL Calcium 7.4 L (8.4-10.2) mg/dL Troponin I (0.000-0.034) ng/mL Total Protein 5.3 L (6.3-8.2) g/dL Albumin 2.4 L (3.5-5.0) g/dL 09/25/21 Range/Units 06:47 ABG pO2 (83-108) mmHg ABG Total CO2 (19-24) mmol/L ABG O2 Saturation (94-97) % Chloride (98-107) mmol/L Glucose (74-99) mg/dL POC Glucose (mg/dL) 156 H (70-110) mg/dL Calcium (8.4-10.2) mg/dL Troponin I (0.000-0.034) ng/mL Total Protein (6.3-8.2) g/dL Albumin (3.5-5.0) g/dL Microbiology - Last 24 Hours (Table) 09/23/21 21:23 Nasal Screen MRSA/MSSA - Final Nasal Swab 09/22/21 17:32 Urine Culture - Final Urine,Voided Escherichia coli 09/22/21 20:19 Blood Culture - Preliminary Blood No Growth after 48 hours 09/22/21 20:21 Blood Culture - Preliminary Blood No Growth after 48 hours 09/22/21 17:15 Blood Culture - Preliminary Blood No Growth after 48 hours 09/22/21 17:00 Blood Culture - Preliminary Blood No Growth after 48 hours 09/22/21 17:34 Gram Stain - Final Sputum Sputum Culture - Final Assessment and Plan Assessment: * Cardiac arrest on 09/22/2021 with downtime of 10 minutes. Patient is showing some meaningful response, following directions as mentioned above detail. Still very encephalopathic but is on IV Propofol. * Anoxic encephalopathy due to cardiac arrest. * Acute urinary tract infection * Acute respiratory failure due to above, on mechanical ventilation. * Aspiration Pneumonia * Morbid obesity * CHF * Diabetes type 2 * Hypertension * History of closed head injury with craniotomies, hydrocephalus with residual left sided weakness * Possible aspiration. Plan: * Pending EEG. * Will get repeat CT head.. * Cardiology ordered a 2-D echo which is reported as technically difficult study with suboptimal. Preserved left ventricular size and systolic function of ejection fraction 55-60%. Normal left atrial size. * Medical management as per IM and critical care. * Patient is making improvement according to Dr. Payne and patient's nurse. She is on sedation and hopefully will continue to have holiday sedation to assess neurological examination. The plan is discussed with the nurse. Nav John M.D. Neuro-Hospitalist Time with Patient: Less than 30
[2021-09-25 13:52] LABS: Glucose,Whole Blood 148 mg/dL (70-110)
--- NOTE | 2021-09-25 16:33 | CT ---
EXAMINATION TYPE: CT brain wo con DATE OF EXAM: 09/25/2021 HISTORY: cardiac arrest, sepsis CT DLP: 1143.4 mGycm. Automated Exposure Control for Dose Reduction was Utilized. TECHNIQUE: CT scan of the head is performed without contrast. COMPARISON: CT brain September 22, 2021. FINDINGS: Partial visualization of endotracheal and orogastric on the localizer. There is no acute i ntracranial hemorrhage or midline shift identified. There is moderate diffuse ventricular and sulcal prominence redemonstrated. There is levi-gy-ugpximko low-attenuation in the periventricular white ma tter consistent with chronic small vessel ischemic change is redemonstrated. Dependent fluid bilatera l sphenoid sinuses slightly more prominent from prior. Globes remain intact bilaterally. IMPRESSION: No acute intracranial hemorrhage or midline shift. There is moderate diffuse age-relate d cerebral atrophy and mild to moderate chronic small vessel ischemic change redemonstrated. No sign ificant change from recent brain CT.
--- NOTE | 2021-09-25 16:57 | P.PN ---
Progress Note - Text Progress Note Date: 09/25/21 Chief Complaint: Found unresponsive This is a 66-year-old patient, follows with Dr. Ray. Patient is at [facility] resident. He was found unresponsive at retirement and fibula was performed for about 10 minutes by the staff. Patient was shocked with AED. When the EMS arrived patient has a sinus tachycardia with a good pulse. Placed on Assisted ventilation with BMV Patient is intubated in the ER. It was felt the patient has aspirated after the suctioning brown colored fluid. The patient is in ICU. On the ventilator. 60/8. While propofol drip and started on Levophed. She will also placed on IV heparin in the ER. Doppler ultrasound of the lower extremities was negative for DVT. Did not have a VQ scan done. Computed tomography scan could not be done because of large body habitus. Had a d-dimer symptoms. Spoke to patient's brother/guardian Luis. 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 Patient is able to speak the often times will miss out on words. Able to feed herself. Nonambulatory. Admitted with cardiopulmonary arrest, aspiration pneumonia causing sepsis, septic shock, ICU. Intubated. propofol. Vancomycin, Zosyn. September 24: ICU: Intubated. Drips include to prevent. Changed from IV heparin to subcu Lovenox. Creamy secretions from the tracheostomy. Nurse called me this afternoon, patient's brother guardian made the patient DO NOT RESUSCITATE September 25: ICU: Ventilator/intubated. FiO2 50 and a PEEP of 8. Telemetry sinus rhythm. 2 feeding at 20 mL an hour. Drips included propofol. Negative MRSA nasal screen. Vancomycin discontinued. IV Zosyn Active Medications Albuterol/Ipratropium (Ipratropium-Albuterol 3 Ml Neb) 3 ml INHALATION RT-QID [facility] Last Admin: 09/25/21 16:23 Dose: 3 ml Chlorhexidine Gluconate (Chlorhexidine Gluconate 15 Ml Cup) 15 ml MUCOUS MEM BID [facility] Last Admin: 09/25/21 08:10 Dose: 15 ml Enoxaparin Sodium (Enoxaparin 80 Mg/0.8 Ml Syringe) 80 mg SQ Q12HR [facility] Last Admin: 09/25/21 08:10 Dose: 80 mg Hydromorphone HCl (Hydromorphone 0.5 Mg/0.5 Ml Syringe) 0.5 mg IVP Q3HR PRN PRN Reason: Pain Last Admin: 09/24/21 12:24 Dose: 0.5 mg Propofol 1,000 mg/ IV Solution 100 mls @ 4.082 mls/hr IV .Q24H [facility]; Protocol Last Admin: 09/25/21 15:51 Dose: 40 mcg/kg/min, 32.659 mls/hr Piperacillin Sod/Tazobactam (Sod 3.375 gm/ Sodium Chloride) 100 mls @ 25 mls/hr IVPB Q8HR [facility]; Protocol Last Admin: 09/25/21 15:06 Dose: 25 mls/hr Miscellaneous Information (Potassium Replacement Protocol 1 Each Misc) 1 each MISCELLANE DAILY PRN; Protocol PRN Reason: Per Protocol Nystatin (Nystatin 100,000 Unit/Gm Powd 15 Gm) 1 applic TOPICAL BID [facility]; Protocol Last Admin: 09/25/21 08:11 Dose: 1 applic Pantoprazole Sodium (Pantoprazole 40 Mg/10 Ml Vial) 40 mg IVP DAILY [facility] Last Admin: 09/25/21 08:10 Dose: 40 mg Past medical history to include: CHF, diabetes, hypertension, hyperlipidemia, closed head injury in 1999. Has had 2 surgeries to release pressure on the brain. Depression anxiety/OCD. Social history: Previous smoker. Bed bound. Resident at [facility] Family history: Noncontributory to presentation Physical examination: VITAL SIGNS: 98.1, 93, 22, 127 with 61, 97% on the ventilator GENERAL: in bed, intubated, sedated. EYES: Pupils equal. Conjunctiva normal. HEENT: External appearance of nose and ears normal, oral cavity grossly normal. NECK: JVD unable to assess; masses not palpable. HEART: First and second heart sounds are normal; mild edema. LUNGS: Respiratory rate increased; diminished breath sounds. ABDOMEN: Soft, nontender, liver spleen not palpable, no masses palpable. PSYCH: Sedated, unable to assessl. MUSCULOSKELETAL:No Clubbing/cyanosis;muscles-grossly intact NEUROLOGICAL: [Cranial nerves grossly intact; no facial asymmetry, gag reflex present. Pupils are responding. Left-sided weakness DERMATOLOGICAL: area of redness underskin folds INVESTIGATIONS, reviewed in the clinical context: MRSA screen [nasal]: Negative CT brain [September]: Moderate diffuse age-related cerebral atrophy 2-D echocardiogram: EF 55-60%. Moderate concentric LVH. September 25: WBC 8.6 hemoglobin 12.2 platelets 313 potassium 3.8 creatinine 0.67 September 24: Obesity 13.6 hemoglobin 12.8 platelets 27 potassium 3.4 creatinine 0.57 White count 20.2 hemoglobin 14.8 platelets 382 ABG: PH 7.3 pCO2 62 pO2 99 FiO2 100% lactic acid 5.8 AST 74 ALT 41 UA positive for nitrite, RBC, WBC,. Negative for nitrite COVID 19/R S/P/influenza type A type B: Not detected White count 22.1 hemoglobin 16.2 platelets 421 potassium 4 creatinine 0.7 EKG tracing personally reviewed by me-sinus tachycardia, [address] segment changes Chest x-ray film personally reviewed by me-/portable: Decreased penetration. Possible infiltrates Assessment and plan: -Possible cardiopulmonary arrest, down by an unknown period patient received about 10 minutes of CPR and shock AeD. Return of circulation. 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 Doubt PE. . Doppler ultrasound both extremity negative. Subcu Lovenox -OCD On luvox -DO NOT RESUSCITATE -Guardian patient's brother Luis Intubated. IV Zosyn. IV vancomycin discontinued. Propofol. Critical. Follow with pulmonary and cardiology. Updated patient's mother who is also my patient in the hospital.
[2021-09-25 18:10] LABS: Glucose,Whole Blood 187 mg/dL (70-110)
[2021-09-25 23:49] LABS: Glucose,Whole Blood 147 mg/dL (70-110)
[2021-09-26] MEDS: PIPERACILLIN-TAZOBACTAM 3.375 GM in SODIUM CHLORIDE 0.9% 100 ML IVPB SCH ×3 (00:09→16:32)
--- NOTE | 2021-09-26 01:02 | EEG ---
ELECTROENCEPHALOGRAM REPORT CLINICAL HISTORY: This is a 66-year-old woman with cardiac arrest, who continues to have altered mental status. The video EEG is obtained to evaluate for seizure and epileptiform activity. RELEVANT MEDICATION: IV propofol. EEG TYPE: A routine 21-channel EEG is performed with video using the 10/20 electrode placement system. DESCRIPTION: The patient is intubated on a ventilator. The background consists of [id number] voltage of 6 to 7 Hz and at times intermixed with delta activity. There is no physiological stage II sleep architecture. There is no focal slowing. Interictal or ictal is none. ACTIVATION PROCEDURES: Photic stimulation did not evoke a posterior driving response. There is no abnormality during the photic stimulation. Hyperventilation is not performed. CLINICAL INTERPRETATION: This is an abnormal routine EEG. The background slowing is suggestive of moderate encephalopathy. Otherwise, there is no focal slowing, epileptiform discharges, or seizure on the EEG. Clinical correlation is recommended. VICENTE / LUCIANO: [id number] / MTDD
[2021-09-26] MEDS: IPRATROPIUM-ALBUTEROL 3 ML NEB INHALATION SCH ×6 (03:32→23:31)
[2021-09-26 05:16] LABS: Basophils % (A) 0 %; Eosinophils # (A) 0.2 k/uL (0-0.7); Eosinophils % (A) 3 %; HCT 38.7 % (34.0-46.0); HGB 12.1 gm/dL (11.4-16.0); Lymphocytes # (A) 1.4 k/uL (1.0-4.8); Lymphocytes % (A) 22 %; MCH 26.9 pg (25.0-35.0); MCHC 31.4 g/dL (31.0-37.0); MCV 85.6 fL (80.0-100.0); Mean Platelet Volume 7.8; Monocytes # (A) 0.4 k/uL (0-1.0); Monocytes % (A) 6 %; Neutrophils # (A) 4.5 k/uL (1.3-7.7); Neutrophils % (A) 68 %; Platelet Count 306 k/uL (150-450); RBC 4.51 m/uL (3.80-5.40); RDW 15.5 % (11.5-15.5); WBC 6.6 k/uL (3.8-10.6)
[2021-09-26 05:28] LABS: ALT 24 U/L (4-34); AST 26 U/L (14-36); African American GFR (CKD) >90 (>60 ml/min/1.73 sqM); Albumin 2.6 g/dL (3.5-5.0); Alkaline Phosphatase 69 U/L (38-126); Anion Gap 3 mmol/L; Blood Urea Nitrogen 13 mg/dL (7-17); Calcium 7.8 mg/dL (8.4-10.2); Carbon Dioxide 27 mmol/L (22-30); Chloride 111 mmol/L (98-107); Glucose 154 mg/dL (74-99); Non-African American GFR(CKD) >90 (>60 ml/min/1.73 sqM); Potassium 3.7 mmol/L (3.5-5.1); Sodium 141 mmol/L (137-145); Total Bilirubin 0.9 mg/dL (0.2-1.3); Total Protein 5.6 g/dL (6.3-8.2)
[2021-09-26 05:56] LABS: ABG Base Excess 5.1 mmol/L; ABG HCO3 29 mmol/L (21-25); ABG Oxygen Saturation 99.3 % (94-97); ABG PCO2 41 mmHg (35-45); ABG PH 7.46 (7.35-7.45); ABG PO2 125 mmHg (83-108); ABG TCO2 30 mmol/L (19-24); Allen Test Performed? Yes
[2021-09-26] MEDS ORDERED: POTASSIUM BICARBONATE/CIT AC 20 MEQ TABLET.EFF NG-TUBE SCH (07:00)
[2021-09-26 07:09] LABS: Glucose,Whole Blood 159 mg/dL (70-110)
[2021-09-26] MEDS ORDERED: FUROSEMIDE 10 MG/ML 2 ML VIAL IV ONE (07:31)
--- NOTE | 2021-09-26 07:31 | P.PN ---
Subjective Progress Note Date: 09/26/21 Principal diagnosis: Cardiopulmonary arrest This is a 66-year-old female patient was morbidly obese as well as was multiple comorbid conditions including history of stroke with left sided weakness as well as diabetes and hypertension and also reported history of heart failure as well as multiple comorbid conditions was admitted to the hospital after she had a witnessed cardiopulmonary arrest at [facility] care facility. AED recommended shock and the patient received a shock. Subsequently she was transferred to the hospital. The patient was seen this morning. She continues to be intubated on mechanical ventilation. She is hemodynamically stable and not on any vasopressors. She underwent an echocardiogram which revealed normal left ventricular systolic function was no significant valvular abnormalities. The patient continues to be on Lovenox for possible PE which is unknown at this point. She received Lasix yesterday. The chest x-ray was reviewed today and showed what it seems to be possible bilateral pleural effusion and she might benefit from additional dose of Lasix. Objective - Vital Signs Vital signs: Vital Signs Temp 97.8 F 09/26/21 04:00 Pulse 80 09/26/21 05:00 Resp 22 09/26/21 05:00 BP 91/53 09/23/21 09:30 Pulse Ox 96 09/26/21 05:00 FiO2 50 09/26/21 04:00 Intake & Output 09/25/21 09/26/21 09/26/21 18:59 06:59 18:59 Intake Total 825.153 880 Output Total 4950 535 Balance -4124.847 345 Weight 147.6 kg 152 kg Intake: IV 200 110 0.9% Normal Saline @ 200 110 50mls/hr Intake, IV Titration 585.153 300 Amount Piperacillin-Tazobactam 3 200 .375 gm In Sodium Chloride 0.9% 100 ml @ 25 mls/hr IVPB Q8HR [facility] Rx# :[id number] propofoL 1,000 mg In 385.153 300 Empty Bag 1 bag @ 5 MCG/ KG/MIN 4.082 mls/hr IV . Q24H [facility] Rx#:[id number] Tube Feeding 10 350 Other 30 120 Output: Urine 4950 535 Other: Voiding Method Indwelling Catheter Indwelling Catheter ABP, PAP, CO, CI - Last Documented Arterial Blood Pressure 110/56 - Constitutional General appearance: Present: no acute distress - Respiratory Respiratory: bilateral: diminished - Cardiovascular Rhythm: regular Heart sounds: normal: S1, S2 - Labs CBC & Chem 7: 09/26/21 04:54 09/26/21 04:54 Labs: Abnormal Lab Results - Last 24 Hours (Table) 09/25/21 09/25/21 09/25/21 Range/Units 13:50 18:08 23:47 ABG pH (7.35-7.45) ABG pO2 (83-108) mmHg ABG HCO3 (21-25) mmol/L ABG Total CO2 (19-24) mmol/L ABG O2 Saturation (94-97) % Chloride (98-107) mmol/L Glucose (74-99) mg/dL POC Glucose (mg/dL) 148 H 187 H 147 H (70-110) mg/dL Calcium (8.4-10.2) mg/dL Total Protein (6.3-8.2) g/dL Albumin (3.5-5.0) g/dL 09/26/21 09/26/21 09/26/21 Range/Units 04:54 05:53 07:08 ABG pH 7.46 H (7.35-7.45) ABG pO2 125 H (83-108) mmHg ABG HCO3 29 H (21-25) mmol/L ABG Total CO2 30 H (19-24) mmol/L ABG O2 Saturation 99.3 H (94-97) % Chloride 111 H (98-107) mmol/L Glucose 154 H (74-99) mg/dL POC Glucose (mg/dL) 159 H (70-110) mg/dL Calcium 7.8 L (8.4-10.2) mg/dL Total Protein 5.6 L (6.3-8.2) g/dL Albumin 2.6 L (3.5-5.0) g/dL Microbiology - Last 24 Hours (Table) 09/22/21 20:19 Blood Culture - Preliminary Blood No Growth after 72 hours 09/22/21 20:21 Blood Culture - Preliminary Blood No Growth after 72 hours 09/22/21 17:15 Blood Culture - Preliminary Blood No Growth after 72 hours 09/22/21 17:00 Blood Culture - Preliminary Blood No Growth after 72 hours 09/23/21 21:23 Nasal Screen MRSA/MSSA - Final Nasal Swab Assessment and Plan Assessment: Assessment #1 cardiopulmonary arrest. Patient received shock #2 elevated d-dimer. Rule out pulmonary embolism #3 morbid obesity #4 history of stroke with residual left-sided weakness #5 multiple comorbid conditions Plan #1 continue anticoagulation for now until further clarification about the persistence of venous thromboembolism #2 the echo was reviewed and showed normal ejection fraction was no significant valvular abnormalities #3 continue ICU monitoring #4 follow-up with the patient #5 monitor electrolytes essentially potassium and magnesium
[2021-09-26] MEDS ORDERED: FUROSEMIDE 10 MG/ML 10 ML VIAL IV STA (07:40)
--- NOTE | 2021-09-26 08:36 | XR ---
EXAMINATION TYPE: XR chest 1V portable DATE OF EXAM: 09/26/2021 COMPARISON: Chest x-ray 09/25/2021 HISTORY: Intubated TECHNIQUE: Single frontal view of the chest is obtained. FINDINGS: Patient is markedly rotated. Endotracheal tube and NG tube are overlying appropriate posit ions. Bibasilar increased attenuation is noted, there is prominence the central vascularity and inter stitium. No evident pneumothorax. Heart is markedly enlarged. There are overlying artifacts. IMPRESSION: Correlate for congestive heart failure. There may be basilar effusions and associated at electasis versus edema, pneumonia not excluded.
--- NOTE | 2021-09-26 09:16 | P.PN ---
Subjective Progress Note Date: 09/26/21 Principal diagnosis: Respiratory failure. Acute hypoxic respiratory failure/cardiac arrest This is a 66-year-old female, [facility] resident, patient has history of closed head injury back in 1999, and she had at least 2 brain surgeries/craniotomies related to her closed head injury and hydrocephalus. Patient is a poor historian, apparently she was found at the [facility] unresponsive and CPR was performed by nursing staff for about 10 minutes. By the time EMS arrived, patient has been shocked by nursing staff at the snf, and as soon as EMS arrived patient was noted to be in sinus tachycardia with strong pulse at the scene. Patient was ventilated using BVM. And she was brought into the ER. Patient apparently had some witnessed aspiration, she was suctioned, she was unresponsive, and as soon as she arrived to the ER, patient was intubated and mechanically ventilated. She was hemodynamically stable initially. She received fluid boluses. And later on her blood pressure was noted to be trending down. Did not require norepinephrine. But she was given more fluid boluses in the ICU. Blood pressure this morning is very marginal, patient will receive more fluid boluses and will likely start norepinephrine if necessary. In the meantime the patient is unresponsive she doesn't respond to any stimuli except she grimaces and withdraws to deep painful stimuli only. Labs this morning showed a pO2 of 114 pCO2 37 pH of 7.48, and this was done on assist control rate of 22, volume 400 FiO2 70% and PEEP of 5. I was able to cut down the FiO2 to 60%. And I increased the PEEP to 8. Patient is on propofol at 40 mcg/kg/m she is also on heparin because she was found to have elevated d- dimer negative venous Doppler, considering her obesity, and weight, patient would not fit in a CT for CT of the chest. Hence a VQ scan is pending. In the meantime the patient is on heparin which I placed on hold for an hour prior to placement a right femoral triple-lumen catheter and a right femoral arterial line. PTT is 58.8, therapeutic. Urinalysis is suggestive of urinary tract infection, cultures are pending in the meantime the patient received 1 dose of vancomycin and vancomycin will be adjusted by pharmacy we also recommended Zosyn until cultures become available. Patient again may have had witnessed aspiration before coming into the ER. Reevaluated today on 09/24/21, patient remains in the ICU intubated and mechanically ventilated. She is on assist control rate of 22 tidal volume 400 FiO2 60% and I cut it down to 50%, PEEP is at 8. ABG showed a pO2 of 96 pCO2 37 pH of 7.45, and this was on 60% FiO2 and PEEP of 8. Patient remains on heparin empirically, she had a negative venous Doppler, she had a significantly elevated d-dimer, it is almost impossible to have this lady undergo CT angiogram of the chest, hence I will keep her on Lovenox 80 mg subcu twice a day, I believe the VQ scan will be nondiagnostic and I will go ahead and cancel the VQ scan. Her WBC count is 13.6 hemoglobin is 12.8. Electrolytes are normal except for low potassium of 3.4, renal profile is normal. Patient remains on propofol at 30 mcg/kg/m, she is also on IV fluid in the form 0.9 normal saline at 50 mL per hour. Patient will be placed on enteral feeding today. And based on her over all picture, the patient is not ready to be weaned or extubated. It is actually difficult to assess her mental status because the patient does have poor mental status to begin with prior to all of this. She does have history of closed head injury and she will be a true challenge to wean and extubate. Today she is still requiring relatively high FiO2 and high PEEP, her chest x-ray continues to show evidence of bilateral interstitial infiltrates or edema. Patient remains on antibiotics empirically/Zosyn, and I will discontinue vancomycin. Progress note dated 09/25/2021. This is a 66-year-old female admitted back on September 22. She came in with cardiac arrest, aspiration pneumonia, and sepsis. He was intubated on September 22. The patient remains on the mechanical ventilator. She's having an EEG today. Afterwards, we will do a daily interruption of sedation, and potentially a weaning trial. The patient is on the volume assist control, rate 22, tidal volume 400, FiO2 50%, and PEEP of 8. Blood gases show pO2 115, pCO2 of 41, and a pH 7.39. The patient is on propofol at 40 mcg/kg/m, saline at 50 mL an hour, and vital high protein at 20, with a goal of 50 mL an hour. Computed tomography scan of the brain was negative. EEG is pending. The patient was discovered to have a E. coli urinary tract infection. For that she is on Zosyn. Labs today include a white count of 8.6, hemoglobin 12.2, hematocrit 38.6, platelet count 313,000. Sodium 141, potassium 3.8, chlorides 114, CO2 23, BUN 13, and creatinine 0.67. Chest x-ray shows cardiomegaly, with low lung volumes, and bibasilar infiltrates or atelectasis. Progress note dated 09/26/2021. 66-year-old female back on September 22. She was admitted with a diagnosis of cardiac arrest, aspiration pneumonia, and sepsis. She was intubated on September 22. She remains on the ventilator. The patient had a unsuccessful daily interruption of sedation yesterday. Currently, she is on volume assist control mode, rate 22, tidal volume 400, FiO2 50%, PEEP of 8. Blood gases show pO2 125, pCO2 41, and a pH is 7.46. The FiO2 was dropped down to 40%. She is on propofol at 40 mcg/kg/m, saline at 10 mL an hour, and vital high protein at 40 mL an hour. In addition to reducing the FiO2, she is given a one-time dose of Lasix 60 mg IV push. Current labs include a white count 6.6, hemoglobin 12.1, hematocrit 38.2, and a platelet count of 306,000. Sodium 141, potassium 3.7, chlorides 111, CO2 27, BUN 13, creatinine 0.68. Albumin 2.6. Chest x-ray shows cardiomegaly, and bilateral infiltrates consistent with CHF. Urine was positive for Escherichia coli in September 22. Objective - Vital Signs Vital signs: Vital Signs Temp 97.2 F L 09/26/21 08:00 Pulse 79 09/26/21 08:54 Resp 22 09/26/21 07:00 BP 91/53 09/23/21 09:30 Pulse Ox 97 09/26/21 08:00 FiO2 50 09/26/21 07:24 Intake & Output 09/25/21 09/26/21 09/26/21 18:59 06:59 18:59 Intake Total 825.153 930 137.293 Output Total 4950 570 30 Balance -4124.847 360 107.293 Weight 147.6 kg 152 kg Intake: IV 200 120 10 0.9% Normal Saline @ 200 120 10 50mls/hr Intake, IV Titration 585.153 300 77.293 Amount Piperacillin-Tazobactam 3 200 .375 gm In Sodium Chloride 0.9% 100 ml @ 25 mls/hr IVPB Q8HR [facility] Rx# :[id number] propofoL 1,000 mg In 385.153 300 77.293 Empty Bag 1 bag @ 5 MCG/ KG/MIN 4.082 mls/hr IV . Q24H [facility] Rx#:[id number] Tube Feeding 10 390 50 Other 30 120 Output: Urine 4950 570 30 Other: Voiding Method Indwelling Catheter Indwelling Catheter ABP, PAP, CO, CI - Last Documented Arterial Blood Pressure 114/58 - Exam No acute distress, sedated, with an orally placed endotracheal tube and NG tube. This patient is very obese. HEENT examination is grossly unremarkable. Neck supple. Full range of motion. No adenopathy thyromegaly or neck vein distention. Cardiovascular examination reveals regular rhythm rate. S1-S2 normal. No S3 or S4. No discernible murmur noted. Heart rate 75 bpm. Lungs reveal scattered bilateral rhonchi. Breath sounds are equal bilaterally. Saturations are 97 %. Abdomen is obese, with bowel sounds. No masses. Extremities are intact. No cyanosis or clubbing. Mild edema. Skin is without rash or lesion. Neurologic examination cannot be adequately assessed. - Labs CBC & Chem 7: 09/26/21 04:54 09/26/21 04:54 Labs: Abnormal Lab Results - Last 24 Hours (Table) 09/25/21 09/25/21 09/25/21 Range/Units 13:50 18:08 23:47 ABG pH (7.35-7.45) ABG pO2 (83-108) mmHg ABG HCO3 (21-25) mmol/L ABG Total CO2 (19-24) mmol/L ABG O2 Saturation (94-97) % Chloride (98-107) mmol/L Glucose (74-99) mg/dL POC Glucose (mg/dL) 148 H 187 H 147 H (70-110) mg/dL Calcium (8.4-10.2) mg/dL Total Protein (6.3-8.2) g/dL Albumin (3.5-5.0) g/dL 09/26/21 09/26/21 09/26/21 Range/Units 04:54 05:53 07:08 ABG pH 7.46 H (7.35-7.45) ABG pO2 125 H (83-108) mmHg ABG HCO3 29 H (21-25) mmol/L ABG Total CO2 30 H (19-24) mmol/L ABG O2 Saturation 99.3 H (94-97) % Chloride 111 H (98-107) mmol/L Glucose 154 H (74-99) mg/dL POC Glucose (mg/dL) 159 H (70-110) mg/dL Calcium 7.8 L (8.4-10.2) mg/dL Total Protein 5.6 L (6.3-8.2) g/dL Albumin 2.6 L (3.5-5.0) g/dL Microbiology - Last 24 Hours (Table) 09/22/21 20:19 Blood Culture - Preliminary Blood No Growth after 72 hours 09/22/21 20:21 Blood Culture - Preliminary Blood No Growth after 72 hours 09/22/21 17:15 Blood Culture - Preliminary Blood No Growth after 72 hours 09/22/21 17:00 Blood Culture - Preliminary Blood No Growth after 72 hours 09/23/21 21:23 Nasal Screen MRSA/MSSA - Final Nasal Swab Assessment and Plan Assessment: History of cardiac arrest, September 22, status post intubation and mechanical ventilation, for respiratory failure, sepsis, and aspiration pneumonia. Acute hypoxemic respiratory failure. Escherichia coli urinary tract infection, with sepsis/septic shock. Aspiration pneumonia. History of closed head injury, patient mentioned challenge. Morbid obesity. History of obstructive sleep apnea syndrome. Type 2 diabetes mellitus. Hyperlipidemia. History of hypertension. EEG is consistent with moderate encephalopathy. Possible anoxic brain injury secondary to cardiac arrest. Plan: Plan dated 09/25/2021. The patient's tube feeds will increase to goal. In addition, the patient will have an EEG today. CAT scan of the brain was negative. She remains on Zosyn Escherichia coli urinary tract infection. Patient remains on sedation with propofol. After the EEG, the patient's propofol be weaned, and the patient will be given a daily interruption of sedation, and potentially a spontaneous breathing trial. Labs, x-rays, and medications are reviewed. The patient may have sustained significant anoxic brain injury. Continue GI and DVT prophylaxis. Additional recommendations and suggestions are forthcoming. Prognosis is certainly guarded. Plan dated 09/26/2021. The patient remains on appropriate medications including propofol, and tube feeds. The FiO2 on the ventilator is reduced to 40%. The patient will get her Lasix dose 60 mg IV push, as a chest x-ray is consistent with fluid overload. Labs, x-rays, and medications are reviewed. The patient continues on Zosyn for E. coli urinary tract infection. The patient is also getting DVT and GI prophylaxis. Additional recommendations and suggestions are forthcoming. Prognosis is guarded. The patient will have another attempt at daily interruption of sedation. Time with Patient: Greater than 30
[2021-09-26] MEDS: PANTOPRAZOLE 40 MG/10 ML VIAL IVP SCH (10:02)
[2021-09-26] MEDS: ENOXAPARIN 80 MG/0.8 ML SYRINGE SQ SCH ×2 (10:03→21:39)
[2021-09-26] MEDS: CHLORHEXIDINE GLUCONATE 15 ML CUP MUCOUS MEM SCH ×2 (10:03→21:40)
[2021-09-26] MEDS: NYSTATIN 100,000 UNIT/GM POWD 15 GM TOPICAL SCH ×2 (10:04→21:40)
[2021-09-26 11:33] LABS: Glucose,Whole Blood 170 mg/dL (70-110)
--- NOTE | 2021-09-26 12:46 | P.PN ---
Subjective Progress Note Date: 09/26/21 The patient is seen at bedside and is about the same. Objective - Vital Signs Vital signs: Vital Signs Temp 97.2 F L 09/26/21 12:00 Pulse 75 09/26/21 12:24 Resp 22 09/26/21 07:00 BP 91/53 09/23/21 09:30 Pulse Ox 98 09/26/21 12:00 FiO2 40 09/26/21 11:12 Intake & Output 09/25/21 09/26/21 09/26/21 18:59 06:59 18:59 Intake Total 825.153 930 452.293 Output Total 4950 570 770 Balance -4124.847 360 -317.707 Weight 147.6 kg 152 kg Intake: IV 200 120 50 0.9% Normal Saline @ 200 120 50 50mls/hr Intake, IV Titration 585.153 300 152.293 Amount Piperacillin-Tazobactam 3 200 75 .375 gm In Sodium Chloride 0.9% 100 ml @ 25 mls/hr IVPB Q8HR [facility] Rx# :[id number] propofoL 1,000 mg In 385.153 300 77.293 Empty Bag 1 bag @ 5 MCG/ KG/MIN 4.082 mls/hr IV . Q24H [facility] Rx#:[id number] Tube Feeding 10 390 250 Other 30 120 Output: Urine 4950 570 770 Other: Voiding Method Indwelling Catheter Indwelling Catheter Indwelling Catheter ABP, PAP, CO, CI - Last Documented Arterial Blood Pressure 117/61 - Exam GENERAL: The patient is a morbid obese woman lying in bed and does not appear in acute distress. LUNG: Intubated on ventilator. NEUROLOGICAL: Limited. Is on IV Propofol 40mcg/kg/min Higher mental function: The patient is severely drowsy and minimally opens eyes. Cranial nerves: The pupils are round, equal and reactive to light. Primary gaze is midline. No facial weakness. Has intact gag reflex. Is not breathing over the vent. Motor: Unable to assess because of her cooperation. Cerebellum: Unable to assess. Sensation: Unable to assess light touch. - Labs CBC & Chem 7: 09/26/21 04:54 09/26/21 04:54 Labs: Abnormal Lab Results - Last 24 Hours (Table) 09/25/21 09/25/21 09/25/21 Range/Units 13:50 18:08 23:47 ABG pH (7.35-7.45) ABG pO2 (83-108) mmHg ABG HCO3 (21-25) mmol/L ABG Total CO2 (19-24) mmol/L ABG O2 Saturation (94-97) % Chloride (98-107) mmol/L Glucose (74-99) mg/dL POC Glucose (mg/dL) 148 H 187 H 147 H (70-110) mg/dL Calcium (8.4-10.2) mg/dL Total Protein (6.3-8.2) g/dL Albumin (3.5-5.0) g/dL 09/26/21 09/26/21 09/26/21 Range/Units 04:54 05:53 07:08 ABG pH 7.46 H (7.35-7.45) ABG pO2 125 H (83-108) mmHg ABG HCO3 29 H (21-25) mmol/L ABG Total CO2 30 H (19-24) mmol/L ABG O2 Saturation 99.3 H (94-97) % Chloride 111 H (98-107) mmol/L Glucose 154 H (74-99) mg/dL POC Glucose (mg/dL) 159 H (70-110) mg/dL Calcium 7.8 L (8.4-10.2) mg/dL Total Protein 5.6 L (6.3-8.2) g/dL Albumin 2.6 L (3.5-5.0) g/dL 09/26/21 Range/Units 11:32 ABG pH (7.35-7.45) ABG pO2 (83-108) mmHg ABG HCO3 (21-25) mmol/L ABG Total CO2 (19-24) mmol/L ABG O2 Saturation (94-97) % Chloride (98-107) mmol/L Glucose (74-99) mg/dL POC Glucose (mg/dL) 170 H (70-110) mg/dL Calcium (8.4-10.2) mg/dL Total Protein (6.3-8.2) g/dL Albumin (3.5-5.0) g/dL Microbiology - Last 24 Hours (Table) 09/22/21 20:19 Blood Culture - Preliminary Blood No Growth after 72 hours 09/22/21 20:21 Blood Culture - Preliminary Blood No Growth after 72 hours 09/22/21 17:15 Blood Culture - Preliminary Blood No Growth after 72 hours 09/22/21 17:00 Blood Culture - Preliminary Blood No Growth after 72 hours 09/23/21 21:23 Nasal Screen MRSA/MSSA - Final Nasal Swab Assessment and Plan Assessment: * Cardiac arrest on 09/22/2021 with downtime of 10 minutes. Patient is showing some meaningful response, following directions as mentioned above detail. Still very encephalopathic but is on IV Propofol. * Anoxic encephalopathy due to cardiac arrest. * Acute urinary tract infection * Acute respiratory failure due to above, on mechanical ventilation. * Aspiration Pneumonia * Morbid obesity * CHF * Diabetes type 2 * Hypertension * History of closed head injury with craniotomies, hydrocephalus with residual left sided weakness * Possible aspiration. Plan: * Routine EEG: Is abnormal. The background slowing suggestive of moderate encephalopathy. Otherwise there is no focal slowing, epileptiform discharges or seizure on the EEG. * Repeat CT head on 09/25/2021: No acute intracranial hemorrhage or midline shift. There is moderate diffuse age related cerebral atrophy and mild to moderate chronic small vessel ischemic change we demonstrate. No significant change from recent brain CT. I reviewed and negative for acute or subacute * Cardiology ordered a 2-D echo which is reported as technically difficult study with suboptimal. Preserved left ventricular size and systolic function of ejection fraction 55-60%. Normal left atrial size. * Medical management as per IM and critical care. * Patient is making improvement according to Dr. Payne and patient's nurse. She is on sedation and hopefully will continue to have holiday sedation to assess neurological examination. The plan is discussed with the nurse. Nav John M.D. Neuro-Hospitalist Time with Patient: Less than 30
[2021-09-26 12:49] LABS: Glucose,Whole Blood 185 mg/dL (70-110)
--- NOTE | 2021-09-26 15:34 | P.PN ---
Progress Note - Text Progress Note Date: 09/26/21 Chief Complaint: Found unresponsive This is a 66-year-old patient, follows with Dr. Ray. Patient is at [facility] resident. He was found unresponsive at [facility] and fibula was performed for about 10 minutes by the staff. Patient was shocked with AED. When the EMS arrived patient has a sinus tachycardia with a good pulse. Placed on Assisted ventilation with BMV Patient is intubated in the ER. It was felt the patient has aspirated after the suctioning brown colored fluid. The patient is in ICU. On the ventilator. 60/8. While propofol drip and started on Levophed. She will also placed on IV heparin in the ER. Doppler ultrasound of the lower extremities was negative for DVT. Did not have a VQ scan done. Computed tomography scan could not be done because of large body habitus. Had a d-dimer symptoms. Spoke to patient's brother/guardian Luis. 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 Patient is able to speak the often times will miss out on words. Able to feed herself. Nonambulatory. Admitted with cardiopulmonary arrest, aspiration pneumonia causing sepsis, septic shock, ICU. Intubated. propofol. Vancomycin, Zosyn. September 24: ICU: Intubated. Drips include to prevent. Changed from IV heparin to subcu Lovenox. Creamy secretions from the tracheostomy. Nurse called me this afternoon, patient's brother guardian made the patient DO NOT RESUSCITATE September 25: ICU: Ventilator/intubated. FiO2 50 and a PEEP of 8. Telemetry sinus rhythm. 2 feeding at 20 mL an hour. Drips included propofol. Negative MRSA nasal screen. Vancomycin discontinued. IV Zosyn September 26: ICU: Ventilator/intubated. FiO2 40 and a PEEP of 8. Drips include IV propofol. Telemetry shows sinus rhythm. 2 feeding at 50 mL an hour. EEG showed encephalopathy. Active Medications Albuterol/Ipratropium (Ipratropium-Albuterol 3 Ml Neb) 3 ml INHALATION RT-Q4H [facility] Last Admin: 09/26/21 15:02 Dose: 3 ml Chlorhexidine Gluconate (Chlorhexidine Gluconate 15 Ml Cup) 15 ml MUCOUS MEM BID [facility] Last Admin: 09/26/21 10:03 Dose: 15 ml Enoxaparin Sodium (Enoxaparin 80 Mg/0.8 Ml Syringe) 80 mg SQ Q12HR [facility] Last Admin: 09/26/21 10:03 Dose: 80 mg Hydromorphone HCl (Hydromorphone 0.5 Mg/0.5 Ml Syringe) 0.5 mg IVP Q3HR PRN PRN Reason: Pain Last Admin: 09/24/21 12:24 Dose: 0.5 mg Propofol 1,000 mg/ IV Solution 100 mls @ 4.082 mls/hr IV .Q24H [facility]; Protocol Last Admin: 09/26/21 08:23 Dose: 40 mcg/kg/min, 32.659 mls/hr Piperacillin Sod/Tazobactam (Sod 3.375 gm/ Sodium Chloride) 100 mls @ 25 mls/hr IVPB Q8HR [facility]; Protocol Last Admin: 09/26/21 10:01 Dose: 25 mls/hr Miscellaneous Information (Potassium Replacement Protocol 1 Each Misc) 1 each MISCELLANE DAILY PRN; Protocol PRN Reason: Per Protocol Nystatin (Nystatin 100,000 Unit/Gm Powd 15 Gm) 1 applic TOPICAL BID [facility]; Protocol Last Admin: 09/26/21 10:04 Dose: 1 applic Pantoprazole Sodium (Pantoprazole 40 Mg/10 Ml Vial) 40 mg IVP DAILY [facility] Last Admin: 09/26/21 10:02 Dose: 40 mg Past medical history to include: CHF, diabetes, hypertension, hyperlipidemia, closed head injury in 1999. Has had 2 surgeries to release pressure on the brain. Depression anxiety/OCD. Social history: Previous smoker. Bed bound. Resident at [facility] Family history: Noncontributory to presentation Physical examination: VITAL SIGNS: 97, 73, 16, 113 with 57, 97% on ventilator GENERAL: in bed, intubated, sedated. EYES: Pupils equal. Conjunctiva normal. HEENT: External appearance of nose and ears normal, oral cavity grossly normal. NECK: JVD unable to assess; masses not palpable. HEART: First and second heart sounds are normal; mild edema. LUNGS: Respiratory rate increased; diminished breath sounds. ABDOMEN: Soft, nontender, liver spleen not palpable, no masses palpable. PSYCH: Sedated, unable to assessl. MUSCULOSKELETAL:No Clubbing/cyanosis;muscles-grossly intact NEUROLOGICAL: [Cranial nerves grossly intact; no facial asymmetry, gag reflex present. Pupils are responding. Left-sided weakness DERMATOLOGICAL: area of redness underskin folds INVESTIGATIONS, reviewed in the clinical context: September 26: WBC 6.6 hemoglobin 12.1 platelets 306 sodium 141 potassium 3.7 cre atinine 0.68 MRSA screen [nasal]: Negative CT brain [September was]: Moderate diffuse age-related cerebral atrophy 2-D echocardiogram: EF 55-60%. Moderate concentric LVH. September 25: WBC 8.6 hemoglobin 12.2 platelets 313 potassium 3.8 creatinine 0.67 September 24: Obesity 13.6 hemoglobin 12.8 platelets 27 potassium 3.4 creatinine 0.57 White count 20.2 hemoglobin 14.8 platelets 382 ABG: PH 7.3 pCO2 62 pO2 99 FiO2 100% lactic acid 5.8 AST 74 ALT 41 UA positive for nitrite, RBC, WBC,. Negative for nitrite COVID 19/R S/P/influenza type A type B: Not detected White count 22.1 hemoglobin 16.2 platelets 421 potassium 4 creatinine 0.7 EKG tracing personally reviewed by me-sinus tachycardia, [address] segment changes Chest x-ray film personally reviewed by me-/portable: Decreased penetration. Possible infiltrates Assessment and plan: -Possible cardiopulmonary arrest, down time unknown . received about 10 minutes of CPR and shock AeD. Return of circulation. 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 Doubt PE. . Doppler ultrasound both extremity negative. Subcu Lovenox -OCD On luvox -DO NOT RESUSCITATE -Guardian patient's brother Luis Intubated. IV Zosyn. . Propofol. Critical. Follow with pulmonary and cardiology. Tube feeding. Prognosis guarded
[2021-09-26 17:38] LABS: Glucose,Whole Blood 181 mg/dL (70-110)
[2021-09-26 18:43] LABS: Glucose,Whole Blood 194 mg/dL (70-110)
[2021-09-27 00:02] LABS: Glucose,Whole Blood 202 mg/dL (70-110)
[2021-09-27] MEDS: PIPERACILLIN-TAZOBACTAM 3.375 GM in SODIUM CHLORIDE 0.9% 100 ML IVPB SCH ×3 (00:18→17:09)
[2021-09-27] MEDS: IPRATROPIUM-ALBUTEROL 3 ML NEB INHALATION SCH ×6 (03:25→23:52)
[2021-09-27 05:05] LABS: Basophils % (A) 1 %; Eosinophils # (A) 0.3 k/uL (0-0.7); Eosinophils % (A) 4 %; HCT 38.8 % (34.0-46.0); HGB 12.1 gm/dL (11.4-16.0); Lymphocytes # (A) 1.4 k/uL (1.0-4.8); Lymphocytes % (A) 18 %; MCH 26.9 pg (25.0-35.0); MCHC 31.2 g/dL (31.0-37.0); MCV 86.1 fL (80.0-100.0); Mean Platelet Volume 8.2; Monocytes # (A) 0.4 k/uL (0-1.0); Monocytes % (A) 6 %; Neutrophils # (A) 5.3 k/uL (1.3-7.7); Neutrophils % (A) 71 %; Platelet Count 294 k/uL (150-450); RBC 4.51 m/uL (3.80-5.40); RDW 15.5 % (11.5-15.5); WBC 7.5 k/uL (3.8-10.6)
[2021-09-27 05:26] LABS: ALT 23 U/L (4-34); AST 26 U/L (14-36); African American GFR (CKD) >90 (>60 ml/min/1.73 sqM); Albumin 2.7 g/dL (3.5-5.0); Alkaline Phosphatase 67 U/L (38-126); Anion Gap 5 mmol/L; Blood Urea Nitrogen 16 mg/dL (7-17); Calcium 7.8 mg/dL (8.4-10.2); Carbon Dioxide 29 mmol/L (22-30); Chloride 108 mmol/L (98-107); Glucose 185 mg/dL (74-99); Non-African American GFR(CKD) >90 (>60 ml/min/1.73 sqM); Sodium 142 mmol/L (137-145); Total Bilirubin 0.9 mg/dL (0.2-1.3); Total Protein 5.6 g/dL (6.3-8.2)
[2021-09-27 05:50] LABS: Glucose,Whole Blood 216 mg/dL (70-110)
[2021-09-27 05:55] LABS: ABG Base Excess 5.7 mmol/L; ABG HCO3 29 mmol/L (21-25); ABG Oxygen Saturation 98.8 % (94-97); ABG PCO2 40 mmHg (35-45); ABG PH 7.47 (7.35-7.45); ABG PO2 101 mmHg (83-108); ABG TCO2 31 mmol/L (19-24); Allen Test Performed? Yes
[2021-09-27] MEDS: POTASSIUM BICARBONATE/CIT AC 20 MEQ TABLET.EFF NG-TUBE SCH ×4 (06:57→21:39)
--- NOTE | 2021-09-27 07:14 | P.PN ---
Subjective Progress Note Date: 09/27/21 Principal diagnosis: Cardiopulmonary arrest This is a 66-year-old female patient was morbidly obese as well as was multiple comorbid conditions including history of stroke with left sided weakness as well as diabetes and hypertension and also reported history of heart failure as well as multiple comorbid conditions was admitted to the hospital after she had a witnessed cardiopulmonary arrest at [facility] care facility. AED recommended shock and the patient received a shock. Subsequently she was transferred to the hospital. The patient was seen this morning. She continues to be intubated on mechanical ventilation. Currently she is not on any vasopressors and she is he modynamically stable. She underwent an echo which revealed normal left ventricular systolic function was no significant valvular abnormalities. Because there is a concern about the currently she is on anticoagulation was Lovenox. She received Lasix yesterday. The chest x-ray was reviewed this mo rning and showed right pleural effusion. The patient might benefit from Lasix. Objective - Vital Signs Vital signs: Vital Signs Temp 97.8 F 09/27/21 04:00 Pulse 75 09/27/21 07:00 Resp 22 09/27/21 07:00 BP 91/53 09/23/21 09:30 Pulse Ox 97 09/27/21 07:00 FiO2 50 09/27/21 04:00 Intake & Output 09/26/21 09/27/21 09/27/21 18:59 06:59 18:59 Intake Total 997.293 855.116 10 Output Total 2195 365 30 Balance -1197.707 490.116 -20 Weight 151.5 kg Intake: IV 120 120 10 0.9% Normal Saline @ 120 120 10 50mls/hr Intake, IV Titration 377.293 375.116 Amount Piperacillin-Tazobactam 3 200 100 .375 gm In Sodium Chloride 0.9% 100 ml @ 25 mls/hr IVPB Q8HR [facility] Rx# :[id number] propofoL 1,000 mg In 177.293 275.116 Empty Bag 1 bag @ 5 MCG/ KG/MIN 4.082 mls/hr IV . Q24H [facility] Rx#:[id number] Tube Feeding 500 300 Other 60 Output: Urine 2195 365 30 Other: Voiding Method Indwelling Catheter Indwelling Catheter ABP, PAP, CO, CI - Last Documented Arterial Blood Pressure 111/56 - Constitutional General appearance: Present: no acute distress - Respiratory Respiratory: bilateral: diminished - Cardiovascular Heart sounds: normal: S1, S2 - Labs CBC & Chem 7: 09/27/21 04:49 09/27/21 04:49 Labs: Abnormal Lab Results - Last 24 Hours (Table) 09/26/21 09/26/21 09/26/21 Range/Units 11:32 12:47 17:37 ABG pH (7.35-7.45) ABG HCO3 (21-25) mmol/L ABG Total CO2 (19-24) mmol/L ABG O2 Saturation (94-97) % Potassium (3.5-5.1) mmol/L Chloride (98-107) mmol/L Glucose (74-99) mg/dL POC Glucose (mg/dL) 170 H 185 H 181 H (70-110) mg/dL Calcium (8.4-10.2) mg/dL Total Protein (6.3-8.2) g/dL Albumin (3.5-5.0) g/dL 09/26/21 09/27/21 09/27/21 Range/Units 18:41 00:01 04:49 ABG pH (7.35-7.45) ABG HCO3 (21-25) mmol/L ABG Total CO2 (19-24) mmol/L ABG O2 Saturation (94-97) % Potassium 3.0 L (3.5-5.1) mmol/L Chloride 108 H (98-107) mmol/L Glucose 185 H (74-99) mg/dL POC Glucose (mg/dL) 194 H 202 H (70-110) mg/dL Calcium 7.8 L (8.4-10.2) mg/dL Total Protein 5.6 L (6.3-8.2) g/dL Albumin 2.7 L (3.5-5.0) g/dL 09/27/21 09/27/21 Range/Units 05:49 05:52 ABG pH 7.47 H (7.35-7.45) ABG HCO3 29 H (21-25) mmol/L ABG Total CO2 31 H (19-24) mmol/L ABG O2 Saturation 98.8 H (94-97) % Potassium (3.5-5.1) mmol/L Chloride (98-107) mmol/L Glucose (74-99) mg/dL POC Glucose (mg/dL) 216 H (70-110) mg/dL Calcium (8.4-10.2) mg/dL Total Protein (6.3-8.2) g/dL Albumin (3.5-5.0) g/dL Microbiology - Last 24 Hours (Table) 09/22/21 20:19 Blood Culture - Preliminary Blood No Growth after 96 hours 09/22/21 20:21 Blood Culture - Preliminary Blood No Growth after 96 hours 09/22/21 17:15 Blood Culture - Preliminary Blood No Growth after 96 hours 09/22/21 17:00 Blood Culture - Preliminary Blood No Growth after 96 hours Assessment and Plan Assessment: Assessment #1 cardiopulmonary arrest. Patient received shock #2 elevated d-dimer. Rule out pulmonary embolism #3 morbid obesity #4 history of stroke with residual left-sided weakness #5 multiple comorbid conditions Plan #1 continue anticoagulation with Lovenox #2 the echo was reviewed and showed normal ejection fraction was no significant valvular abnormalities #3 continue ICU monitoring #4 follow-up with the patient #5 monitor electrolytes
--- NOTE | 2021-09-27 08:09 | P.PN ---
Subjective Progress Note Date: 09/27/21 Principal diagnosis: Respiratory failure. Acute hypoxic respiratory failure/cardiac arrest This is a 66-year-old female, shelter resident, patient has history of closed head injury back in 1999, and she had at least 2 brain surgeries/craniotomies related to her closed head injury and hydrocephalus. Patient is a poor historian, apparently she was found at the shelter unresponsive and CPR was performed by nursing staff for about 10 minutes. By the time EMS arrived, patient has been shocked by nursing staff at the shelter, and as soon as EMS arrived patient was noted to be in sinus tachycardia with strong pulse at the scene. Patient was ventilated using BVM. And she was brought into the ER. Patient apparently had some witnessed aspiration, she was suctioned, she was unresponsive, and as soon as she arrived to the ER, patient was intubated and mechanically ventilated. She was hemodynamically stable initially. She received fluid boluses. And later on her blood pressure was noted to be trending down. Did not require norepinephrine. But she was given more fluid boluses in the ICU. Blood pressure this morning is very marginal, patient will receive more fluid boluses and will likely start norepinephrine if necessary. In the meantime the patient is unresponsive she doesn't respond to any stimuli except she grimaces and withdraws to deep painful stimuli only. Labs this morning showed a pO2 of 114 pCO2 37 pH of 7.48, and this was done on assist control rate of 22, volume 400 FiO2 70% and PEEP of 5. I was able to cut down the FiO2 to 60%. And I increased the PEEP to 8. Patient is on propofol at 40 mcg/kg/m she is also on heparin because she was found to have elevated d- dimer negative venous Doppler, considering her obesity, and weight, patient would not fit in a CT for CT of the chest. Hence a VQ scan is pending. In the meantime the patient is on heparin which I placed on hold for an hour prior to placement a right femoral triple-lumen catheter and a right femoral arterial line. PTT is 58.8, therapeutic. Urinalysis is suggestive of urinary tract infection, cultures are pending in the meantime the patient received 1 dose of vancomycin and vancomycin will be adjusted by pharmacy we also recommended Zosyn until cultures become available. Patient again may have had witnessed aspiration before coming into the ER. Reevaluated today on 09/24/21, patient remains in the ICU intubated and mechanically ventilated. She is on assist control rate of 22 tidal volume 400 FiO2 60% and I cut it down to 50%, PEEP is at 8. ABG showed a pO2 of 96 pCO2 37 pH of 7.45, and this was on 60% FiO2 and PEEP of 8. Patient remains on heparin empirically, she had a negative venous Doppler, she had a significantly elevated d-dimer, it is almost impossible to have this lady undergo CT angiogram of the chest, hence I will keep her on Lovenox 80 mg subcu twice a day, I believe the VQ scan will be nondiagnostic and I will go ahead and cancel the VQ scan. Her WBC count is 13.6 hemoglobin is 12.8. Electrolytes are normal except for low potassium of 3.4, renal profile is normal. Patient remains on propofol at 30 mcg/kg/m, she is also on IV fluid in the form 0.9 normal saline at 50 mL per hour. Patient will be placed on enteral feeding today. And based on her over all picture, the patient is not ready to be weaned or extubated. It is actually difficult to assess her mental status because the patient does have poor mental status to begin with prior to all of this. She does have history of closed head injury and she will be a true challenge to wean and extubate. Today she is still requiring relatively high FiO2 and high PEEP, her chest x-ray continues to show evidence of bilateral interstitial infiltrates or edema. Patient remains on antibiotics empirically/Zosyn, and I will discontinue vancomycin. Progress note dated 09/25/2021. This is a 66-year-old female admitted back on September 22. She came in with cardiac arrest, aspiration pneumonia, and sepsis. He was intubated on September 22. The patient remains on the mechanical ventilator. She's having an EEG today. Afterwards, we will do a daily interruption of sedation, and potentially a weaning trial. The patient is on the volume assist control, rate 22, tidal volume 400, FiO2 50%, and PEEP of 8. Blood gases show pO2 115, pCO2 of 41, and a pH 7.39. The patient is on propofol at 40 mcg/kg/m, saline at 50 mL an hour, and vital high protein at 20, with a goal of 50 mL an hour. Computed tomography scan of the brain was negative. EEG is pending. The patient was discovered to have a E. coli urinary tract infection. For that she is on Zosyn. Labs today include a white count of 8.6, hemoglobin 12.2, hematocrit 38.6, platelet count 313,000. Sodium 141, potassium 3.8, chlorides 114, CO2 23, BUN 13, and creatinine 0.67. Chest x-ray shows cardiomegaly, with low lung volumes, and bibasilar infiltrates or atelectasis. Progress note dated 09/26/2021. 66-year-old female back on September 22. She was admitted with a diagnosis of cardiac arrest, aspiration pneumonia, and sepsis. She was intubated on September 22. She remains on the ventilator. The patient had a unsuccessful daily interruption of sedation yesterday. Currently, she is on volume assist control mode, rate 22, tidal volume 400, FiO2 50%, PEEP of 8. Blood gases show pO2 125, pCO2 41, and a pH is 7.46. The FiO2 was dropped down to 40%. She is on propofol at 40 mcg/kg/m, saline at 10 mL an hour, and vital high protein at 40 mL an hour. In addition to reducing the FiO2, she is given a one-time dose of Lasix 60 mg IV push. Current labs include a white count 6.6, hemoglobin 12.1, hematocrit 38.2, and a platelet count of 306,000. Sodium 141, potassium 3.7, chlorides 111, CO2 27, BUN 13, creatinine 0.68. Albumin 2.6. Chest x-ray shows cardiomegaly, and bilateral infiltrates consistent with CHF. Urine was positive for Escherichia coli in September 22. Progress note dated 09/27/2021. 66-year-old female who was admitted on September 22. She was admitted with a diagnosis of cardiac arrest, aspiration pneumonia, and sepsis. He was intubated on September 22, and remains on the ventilator. The patient has had daily interruption of sedation, and has not done well. She is a DO NOT RESUSCITATE patient. She remains on volume assist control, rate 22, tidal volume 400, FiO2 40%, and PEEP of 8. Arterial blood gases show pO2 101, pCO2 of 40, pH is 7.47. The patient's on propofol at 40 g kilogram per minute, saline at 10 mL an hour, and vital high protein at 50 mL an hour, which is goal. White count 7.5, hemoglobin 12.1, hematocrit 39, and platelet count 294,000. Sodium 142, pota ssium 3, chlorides 108, CO2 29, normal anion gap, BUN 16, and creatinine 0.62. Albumin 2.7. Urine from September 22 shows Escherichia coli. Chest x-ray shows some bibasilar atelectasis, with a right-sided pleural effusion. Objective - Vital Signs Vital signs: Vital Signs Temp 97.8 F 09/27/21 04:00 Pulse 75 09/27/21 07:52 Resp 22 09/27/21 07:00 BP 91/53 09/23/21 09:30 Pulse Ox 97 09/27/21 07:00 FiO2 40 09/27/21 07:29 Intake & Output 09/26/21 09/27/21 09/27/21 18:59 06:59 18:59 Intake Total 997.293 955.116 10 Output Total 2195 365 30 Balance -1197.707 590.116 -20 Weight 151.5 kg Intake: IV 120 120 10 0.9% Normal Saline @ 120 120 10 50mls/hr Intake, IV Titration 377.293 475.116 Amount Piperacillin-Tazobactam 3 200 100 .375 gm In Sodium Chloride 0.9% 100 ml @ 25 mls/hr IVPB Q8HR [facility] Rx# :[id number] propofoL 1,000 mg In 177.293 375.116 Empty Bag 1 bag @ 5 MCG/ KG/MIN 4.082 mls/hr IV . Q24H [facility] Rx#:[id number] Tube Feeding 500 300 Other 60 Output: Urine 2195 365 30 Other: Voiding Method Indwelling Catheter Indwelling Catheter ABP, PAP, CO, CI - Last Documented Arterial Blood Pressure 111/56 - Exam No acute distress, sedated, with an orally placed endotracheal tube and NG tube. This patient is very obese. HEENT examination is grossly unremarkable. Neck supple. Full range of motion. No adenopathy thyromegaly or neck vein distention. Cardiovascular examination reveals regular rhythm rate. S1-S2 normal. No S3 or S4. No discernible murmur noted. Heart rate 75 bpm. Lungs reveal scattered bilateral rhonchi. Breath sounds are equal bilaterally. Saturations are 97 %. Abdomen is obese, with bowel sounds. No masses. Extremities are intact. No cyanosis or clubbing. Mild edema. Skin is without rash or lesion. Neurologic examination cannot be adequately assessed. - Labs CBC & Chem 7: 09/27/21 04:49 09/27/21 04:49 Labs: Abnormal Lab Results - Last 24 Hours (Table) 09/26/21 09/26/21 09/26/21 Range/Units 11:32 12:47 17:37 ABG pH (7.35-7.45) ABG HCO3 (21-25) mmol/L ABG Total CO2 (19-24) mmol/L ABG O2 Saturation (94-97) % Potassium (3.5-5.1) mmol/L Chloride (98-107) mmol/L Glucose (74-99) mg/dL POC Glucose (mg/dL) 170 H 185 H 181 H (70-110) mg/dL Calcium (8.4-10.2) mg/dL Total Protein (6.3-8.2) g/dL Albumin (3.5-5.0) g/dL 09/26/21 09/27/21 09/27/21 Range/Units 18:41 00:01 04:49 ABG pH (7.35-7.45) ABG HCO3 (21-25) mmol/L ABG Total CO2 (19-24) mmol/L ABG O2 Saturation (94-97) % Potassium 3.0 L (3.5-5.1) mmol/L Chloride 108 H (98-107) mmol/L Glucose 185 H (74-99) mg/dL POC Glucose (mg/dL) 194 H 202 H (70-110) mg/dL Calcium 7.8 L (8.4-10.2) mg/dL Total Protein 5.6 L (6.3-8.2) g/dL Albumin 2.7 L (3.5-5.0) g/dL 09/27/21 09/27/21 Range/Units 05:49 05:52 ABG pH 7.47 H (7.35-7.45) ABG HCO3 29 H (21-25) mmol/L ABG Total CO2 31 H (19-24) mmol/L ABG O2 Saturation 98.8 H (94-97) % Potassium (3.5-5.1) mmol/L Chloride (98-107) mmol/L Glucose (74-99) mg/dL POC Glucose (mg/dL) 216 H (70-110) mg/dL Calcium (8.4-10.2) mg/dL Total Protein (6.3-8.2) g/dL Albumin (3.5-5.0) g/dL Microbiology - Last 24 Hours (Table) 09/22/21 20:19 Blood Culture - Preliminary Blood No Growth after 96 hours 09/22/21 20:21 Blood Culture - Preliminary Blood No Growth after 96 hours 09/22/21 17:15 Blood Culture - Preliminary Blood No Growth after 96 hours 09/22/21 17:00 Blood Culture - Preliminary Blood No Growth after 96 hours Assessment and Plan Assessment: History of cardiac arrest, September 22, status post intubation and mechanical ventilation, for respiratory failure, sepsis, and aspiration pneumonia. Acute hypoxemic respiratory failure, with failure to wean from mechanical ventilation. Escherichia coli urinary tract infection, with sepsis/septic shock. Aspiration pneumonia. History of closed head injury, patient mentioned challenge. Morbid obesity. History of obstructive sleep apnea syndrome. Type 2 diabetes mellitus. Hyperlipidemia. History of hypertension. EEG is consistent with moderate encephalopathy. Possible anoxic brain injury secondary to cardiac arrest. Plan: Plan dated 09/25/2021. The patient's tube feeds will increase to goal. In addition, the patient will have an EEG today. CAT scan of the brain was negative. She remains on Zosyn Escherichia coli urinary tract infection. Patient remains on sedation with propofol. After the EEG, the patient's propofol be weaned, and the patient will be given a daily interruption of sedation, and potentially a spontaneous breathing trial. Labs, x-rays, and medications are reviewed. The patient may have sustained significant anoxic brain injury. Continue GI and DVT prophylaxis. Additional recommendations and suggestions are forthcoming. Prognosis is certainly guarded. Plan dated 09/26/2021. The patient remains on appropriate medications including propofol, and tube feeds. The FiO2 on the ventilator is reduced to 40%. The patient will get her Lasix dose 60 mg IV push, as a chest x-ray is consistent with fluid overload. Labs, x-rays, and medications are reviewed. The patient continues on Zosyn for E. coli urinary tract infection. The patient is also getting DVT and GI prophylaxis. Additional recommendations and suggestions are forthcoming. Prognosis is guarded. The patient will have another attempt at daily interruption of sedation. Plan dated 09/27/2021. The patient remains on the mechanical ventilator. We've done daily interruption of sedation. The patient does very poorly becomes very agitated and tachypnea. She has to be re-sedated with propofol. The patient's on 2 feedings at goal. She's on appropriate antibiotics for her Escherichia coli urinary tract infection. The nurses will recheck out to the family, or medical decision maker, to determine what to do next. The patient is a DO NOT RESUSCITATE patient. Continue DVT and GI prophylaxis. Prognosis is very poor. Time with Patient: Greater than 30
--- NOTE | 2021-09-27 08:15 | XR ---
EXAMINATION TYPE: XR chest 1V portable DATE OF EXAM: 09/27/2021 COMPARISON: 09/26/2021 INDICATION: Tube placement TECHNIQUE: Single frontal view of the chest is obtained. FINDINGS: The heart size is mildly prominent. The pulmonary vasculature is normal. Small right pleural effusion may be present. Minimal left lower lobe infiltrate may be present silhou etting the diaphragm. Endotracheal tube tip is above the michelle. Nasogastric tube transverses the thorax. IMPRESSION: 1. Small right pleural effusion. Left lower lobe infiltrate may be present. Continued follow-up is re commended. 2. Lines and catheters discussed above.
[2021-09-27] MEDS: ENOXAPARIN 80 MG/0.8 ML SYRINGE SQ SCH ×2 (10:49→20:11)
[2021-09-27] MEDS: PANTOPRAZOLE 40 MG/10 ML VIAL IVP SCH (10:50)
[2021-09-27] MEDS: CHLORHEXIDINE GLUCONATE 15 ML CUP MUCOUS MEM SCH ×2 (10:50→20:11)
[2021-09-27] MEDS: NYSTATIN 100,000 UNIT/GM POWD 15 GM TOPICAL SCH ×2 (10:50→20:11)
--- NOTE | 2021-09-27 11:31 | P.PN ---
Subjective Progress Note Date: 09/27/21 The patient is seen at bedside and per the nurse that had her yesterday, she stated patient was following few simple commands while on Holiday sedation. Today she continues to be on IV Propofol 40mcg/kg/min. Objective - Vital Signs Vital signs: Vital Signs Temp 97.8 F 09/27/21 04:00 Pulse 76 09/27/21 08:16 Resp 22 09/27/21 07:00 BP 91/53 09/23/21 09:30 Pulse Ox 97 09/27/21 07:00 FiO2 40 09/27/21 07:29 Intake & Output 09/26/21 09/27/21 09/27/21 18:59 06:59 18:59 Intake Total 997.293 955.116 93.280 Output Total 2195 365 30 Balance -1197.707 590.116 63.280 Weight 151.5 kg Intake: IV 120 120 10 0.9% Normal Saline @ 120 120 10 50mls/hr Intake, IV Titration 377.293 475.116 83.280 Amount Piperacillin-Tazobactam 3 200 100 .375 gm In Sodium Chloride 0.9% 100 ml @ 25 mls/hr IVPB Q8HR [facility] Rx# :[id number] propofoL 1,000 mg In 177.293 375.116 83.280 Empty Bag 1 bag @ 5 MCG/ KG/MIN 4.082 mls/hr IV . Q24H [facility] Rx#:[id number] Tube Feeding 500 300 Other 60 Output: Urine 2195 365 30 Other: Voiding Method Indwelling Catheter Indwelling Catheter ABP, PAP, CO, CI - Last Documented Arterial Blood Pressure 111/56 - Exam GENERAL: The patient is a morbid obese woman lying in bed and does not appear in acute distress. LUNG: Intubated on ventilator. NEUROLOGICAL: Limited. Is on IV Propofol 40mcg/kg/min Higher mental function: The patient is severely drowsy and minimally opens eyes. Cranial nerves: The pupils are round, equal and reactive to light. Primary gaze is midline. No facial weakness. Has intact gag reflex. Is not breathing over the vent. Motor: Unable to assess because of her cooperation. Cerebellum: Unable to assess. Sensation: Unable to assess light touch. Grimaces to painful stimuli throughout extremities. - Labs CBC & Chem 7: 09/27/21 04:49 09/27/21 04:49 Labs: Abnormal Lab Results - Last 24 Hours (Table) 09/26/21 09/26/21 09/26/21 Range/Units 11:32 12:47 17:37 ABG pH (7.35-7.45) ABG HCO3 (21-25) mmol/L ABG Total CO2 (19-24) mmol/L ABG O2 Saturation (94-97) % Potassium (3.5-5.1) mmol/L Chloride (98-107) mmol/L Glucose (74-99) mg/dL POC Glucose (mg/dL) 170 H 185 H 181 H (70-110) mg/dL Calcium (8.4-10.2) mg/dL Total Protein (6.3-8.2) g/dL Albumin (3.5-5.0) g/dL 09/26/21 09/27/21 09/27/21 Range/Units 18:41 00:01 04:49 ABG pH (7.35-7.45) ABG HCO3 (21-25) mmol/L ABG Total CO2 (19-24) mmol/L ABG O2 Saturation (94-97) % Potassium 3.0 L (3.5-5.1) mmol/L Chloride 108 H (98-107) mmol/L Glucose 185 H (74-99) mg/dL POC Glucose (mg/dL) 194 H 202 H (70-110) mg/dL Calcium 7.8 L (8.4-10.2) mg/dL Total Protein 5.6 L (6.3-8.2) g/dL Albumin 2.7 L (3.5-5.0) g/dL 09/27/21 09/27/21 Range/Units 05:49 05:52 ABG pH 7.47 H (7.35-7.45) ABG HCO3 29 H (21-25) mmol/L ABG Total CO2 31 H (19-24) mmol/L ABG O2 Saturation 98.8 H (94-97) % Potassium (3.5-5.1) mmol/L Chloride (98-107) mmol/L Glucose (74-99) mg/dL POC Glucose (mg/dL) 216 H (70-110) mg/dL Calcium (8.4-10.2) mg/dL Total Protein (6.3-8.2) g/dL Albumin (3.5-5.0) g/dL Microbiology - Last 24 Hours (Table) 09/22/21 20:19 Blood Culture - Preliminary Blood No Growth after 96 hours 09/22/21 20:21 Blood Culture - Preliminary Blood No Growth after 96 hours 09/22/21 17:15 Blood Culture - Preliminary Blood No Growth after 96 hours 09/22/21 17:00 Blood Culture - Preliminary Blood No Growth after 96 hours Assessment and Plan Assessment: * Cardiac arrest on 09/22/2021 with downtime of 10 minutes. Patient is showing some meaningful response, following directions as mentioned above detail. Still very encephalopathic but is on IV Propofol. * Anoxic encephalopathy due to cardiac arrest. * Acute urinary tract infection * Acute respiratory failure due to above, on mechanical ventilation. * Aspiration Pneumonia * Morbid obesity * CHF * Diabetes type 2 * Hypertension * History of closed head injury with craniotomies, hydrocephalus with residual left sided weakness * Possible aspiration. Plan: * Routine EEG: Is abnormal. The background slowing suggestive of moderate encephalopathy. Otherwise there is no focal slowing, epileptiform discharges or seizure on the EEG. * Repeat CT head on 09/25/2021: No acute intracranial hemorrhage or midline shift. There is moderate diffuse age related cerebral atrophy and mild to moderate chronic small vessel ischemic change we demonstrate. No significant change from recent brain CT. I reviewed and negative for acute or subacute * Cardiology ordered a 2-D echo which is reported as technically difficult study with suboptimal. Preserved left ventricular size and systolic function of ejection fraction 55-60%. Normal left atrial size. * Medical management as per IM and critical care. * Patient is making improvement according to patient's nurse while off sedation. She is on sedation and hopefully will continue to have holiday sedation to assess neurological examination. The plan is discussed with the nurse. Nav John M.D. Neuro-Hospitalist Time with Patient: Less than 30
[2021-09-27 12:27] LABS: Glucose,Whole Blood 230 mg/dL (70-110)
[2021-09-27] MEDS ORDERED: DEXTROSE 50% SYRINGE 50 ML IVP PRN ×2 (12:44)
--- NOTE | 2021-09-27 13:06 | P.PN ---
Progress Note - Text Progress Note Date: 09/27/21 Chief Complaint: Found unresponsive This is a 66-year-old patient, follows with Dr. Ray. Patient is at [facility] resident. He was found unresponsive at group home and fibula was performed for about 10 minutes by the staff. Patient was shocked with AED. When the EMS arrived patient has a sinus tachycardia with a good pulse. Placed on Assisted ventilation with BMV Patient is intubated in the ER. It was felt the patient has aspirated after the suctioning brown colored fluid. The patient is in ICU. On the ventilator. 60/8. While propofol drip and started on Levophed. She will also placed on IV heparin in the ER. Doppler ultrasound of the lower extremities was negative for DVT. Did not have a VQ scan done. Computed tomography scan could not be done because of large body habitus. Had a d-dimer symptoms. Spoke to patient's brother/guardian Luis. 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 Patient is able to speak the often times will miss out on words. Able to feed herself. Nonambulatory. Admitted with cardiopulmonary arrest, aspiration pneumonia causing sepsis, septic shock, ICU. Intubated. propofol. Vancomycin, Zosyn. September 24: ICU: Intubated. Drips include to prevent. Changed from IV heparin to subcu Lovenox. Creamy secretions from the tracheostomy. Nurse called me this afternoon, patient's brother guardian made the patient DO NOT RESUSCITATE September 25: ICU: Ventilator/intubated. FiO2 50 and a PEEP of 8. Telemetry sinus rhythm. 2 feeding at 20 mL an hour. Drips included propofol. Negative MRSA nasal screen. Vancomycin discontinued. IV Zosyn September 2: ICU: Ventilator/intubated. FiO2 40 and a PEEP of 8. Drips include IV propofol. Telemetry shows sinus rhythm. 2 feeding at 50 mL an hour. EEG showed encephalopathy. September 27: ICU: Ventilator/intubated. FiO2 40 and a PEEP of 8. Sedation holiday was tried. Did not tolerate. Became agitated hypertensive. He Mosby nose to get patient's home dose Luvox, if not available in the hospital from home. 2 feeding at 50 mL an hour. Sinus rhythm Active Medications Albuterol/Ipratropium (Ipratropium-Albuterol 3 Ml Neb) 3 ml INHALATION RT-Q4H [facility] Last Admin: 09/27/21 11:39 Dose: 3 ml Chlorhexidine Gluconate (Chlorhexidine Gluconate 15 Ml Cup) 15 ml MUCOUS MEM BID [facility] Last Admin: 09/27/21 10:50 Dose: 15 ml Dextrose/Water (Dextrose 50% Syringe 50 Ml) 25 ml IVP PER PROTOCOL PRN; Protocol PRN Reason: Hypoglycemia Dextrose/Water (Dextrose 50% Syringe 50 Ml) 50 ml IVP PER PROTOCOL PRN; Protocol PRN Reason: Hypoglycemia Enoxaparin Sodium (Enoxaparin 80 Mg/0.8 Ml Syringe) 80 mg SQ Q12HR [facility] Last Admin: 09/27/21 10:49 Dose: 80 mg Fluvoxamine Maleate (Fluvoxamine 50 Mg Tab) 150 mg PO BID@08,1999 [facility] Hydromorphone HCl (Hydromorphone 0.5 Mg/0.5 Ml Syringe) 0.5 mg IVP Q3HR PRN PRN Reason: Pain Last Admin: 09/24/21 12:24 Dose: 0.5 mg Propofol 1,000 mg/ IV Solution 100 mls @ 4.082 mls/hr IV .Q24H [facility]; Protocol Last Admin: 09/27/21 12:38 Dose: 40 mcg/kg/min, 32.659 mls/hr Piperacillin Sod/Tazobactam (Sod 3.375 gm/ Sodium Chloride) 100 mls @ 25 mls/hr IVPB Q8HR [facility]; Protocol Last Admin: 09/27/21 10:48 Dose: 25 mls/hr Insulin Aspart (Insulin Aspart (Novolog) 100 Unit/Ml Vial) 0 unit SQ Q6HR [facility]; Protocol Miscellaneous Information (Potassium Replacement Protocol 1 Each Misc) 1 each MISCELLANE DAILY PRN; Protocol PRN Reason: Per Protocol Nystatin (Nystatin 100,000 Unit/Gm Powd 15 Gm) 1 applic TOPICAL BID [facility]; Protocol Last Admin: 09/27/21 10:50 Dose: 1 applic Pantoprazole Sodium (Pantoprazole 40 Mg/10 Ml Vial) 40 mg IVP DAILY [facility] Last Admin: 09/27/21 10:50 Dose: 40 mg Past medical history to include: CHF, diabetes, hypertension, hyperlipidemia, closed head injury in 1999. Has had 2 surgeries to release pressure on the brain. Depression anxiety/OCD. Social history: Previous smoker. Bed bound. Resident at [facility] Family history: Noncontributory to presentation Physical examination: VITAL SIGNS: Afebrile, 75, 22, 1 1 x 56, 97% on ventilator GENERAL: in bed, intubated, sedated. EYES: Pupils equal. Conjunctiva normal. HEENT: External appearance of nose and ears normal, oral cavity grossly normal. NECK: JVD unable to assess; masses not palpable. HEART: First and second heart sounds are normal; mild edema. LUNGS: Respiratory rate increased; diminished breath sounds. ABDOMEN: Soft, nontender, liver spleen not palpable, no masses palpable. PSYCH: Arousable MUSCULOSKELETAL:No Clubbing/cyanosis;muscles-grossly intact NEUROLOGICAL: [Cranial nerves grossly intact; no facial asymmetry, gag reflex present. Pupils are responding. Left-sided weakness DERMATOLOGICAL: area of redness underskin folds INVESTIGATIONS, reviewed in the clinical context: September 27: White count 7.5 hemoglobin 12.1 platelets 24 potassium 3 creatinine 0.62 September 26: WBC 6.6 hemoglobin 12.1 platelets 306 sodium 141 potassium 3.7 creatinine 0.68 MRSA screen [nasal]: Negative CT brain [September was]: Moderate diffuse age-related cerebral atrophy 2-D echocardiogram: EF 55-60%. Moderate concentric LVH. September 25: WBC 8.6 hemoglobin 12.2 platelets 313 potassium 3.8 creatinine 0.67 September 24: Obesity 13.6 hemoglobin 12.8 platelets 27 potassium 3.4 creatinine 0.57 White count 20.2 hemoglobin 14.8 platelets 382 ABG: PH 7.3 pCO2 62 pO2 99 FiO2 100% lactic acid 5.8 AST 74 ALT 41 UA positive for nitrite, RBC, WBC,. Negative for nitrite COVID 19/R S/P/influenza type A type B: Not detected White count 22.1 hemoglobin 16.2 platelets 421 potassium 4 creatinine 0.7 EKG tracing personally reviewed by me-sinus tachycardia, [address] segment changes Chest x-ray film personally reviewed by me-/portable: Decreased penetration. Possible infiltrates Assessment and plan: -Possible cardiopulmonary arrest, down time unknown . received about 10 minutes of CPR and shock AeD. Return of circulation. 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 Doubt PE. . Doppler ultrasound both extremity negative. Subcu Lovenox -OCD On luvox -DO NOT RESUSCITATE -Guardian patient's brother Luis Intubated. IV Zosyn. . Did not tolerate sedation holiday. 2 feeding at:. start patient's home dose of luvox.
[2021-09-27 14:04] VITALS: BMI 57.3
[2021-09-27] MEDS: INSULIN ASPART (NovoLOG) 100 UNIT/ML VIAL SQ SCH ×2 (14:37→17:30)
[2021-09-27 17:20] LABS: Glucose,Whole Blood 267 mg/dL (70-110)
[2021-09-27] MEDS ORDERED: LACTATED RINGERS 1,000 ML IV ONE (21:30)
[2021-09-28 00:03] LABS: Glucose,Whole Blood 299 mg/dL (70-110)
[2021-09-28] MEDS: PIPERACILLIN-TAZOBACTAM 3.375 GM in SODIUM CHLORIDE 0.9% 100 ML IVPB SCH ×3 (00:24→16:23)
[2021-09-28] MEDS: INSULIN ASPART (NovoLOG) 100 UNIT/ML VIAL SQ SCH ×3 (00:24→12:08)
[2021-09-28] MEDS: NOREPINEPHRINE 4 MG in SODIUM CHLORIDE 0.9% 250 ML IV SCH ×6 (00:40→12:02)
[2021-09-28 01:46] VITALS: RESP 22
[2021-09-28] MEDS: IPRATROPIUM-ALBUTEROL 3 ML NEB INHALATION SCH ×4 (03:47→16:16)
[2021-09-28] MEDS: HYDROmorphone 0.5 MG/0.5 ML SYRINGE IVP PRN (04:51)
[2021-09-28 05:14] LABS: Anisocytosis Slight; Basophils # (A) 0.1 k/uL (0-0.2); Basophils % (A) 0 %; Eosinophils # (A) 0.6 k/uL (0-0.7); Eosinophils % (A) 2 %; HCT 25.6 % (34.0-46.0); Hypochromasia Slight; Lymphocytes # (A) 4.8 k/uL (1.0-4.8); Lymphocytes % (A) 18 %; MCH 28.3 pg (25.0-35.0); MCHC 32.1 g/dL (31.0-37.0); MCV 88.2 fL (80.0-100.0); Mean Platelet Volume 8.7; Monocytes # (A) 1.1 k/uL (0-1.0); Monocytes % (A) 4 %; Neutrophils # (A) 19.8 k/uL (1.3-7.7); Neutrophils % (A) 73 %; Platelet Count 431 k/uL (150-450); RDW 16.4 % (11.5-15.5); WBC 27.2 k/uL (3.8-10.6)
[2021-09-28 05:15] LABS: HGB 8.2 gm/dL (11.4-16.0)
[2021-09-28 05:26] LABS: African American GFR (CKD) >90 (>60 ml/min/1.73 sqM); Anion Gap 1 mmol/L; Blood Urea Nitrogen 22 mg/dL (7-17); Calcium 7.6 mg/dL (8.4-10.2); Carbon Dioxide 28 mmol/L (22-30); Chloride 107 mmol/L (98-107); Glucose 334 mg/dL (74-99); Non-African American GFR(CKD) >90 (>60 ml/min/1.73 sqM); Potassium 4.2 mmol/L (3.5-5.1); Sodium 136 mmol/L (137-145)
[2021-09-28 05:46] LABS: ABG Base Excess 0.8 mmol/L; ABG HCO3 25 mmol/L (21-25); ABG Oxygen Saturation 98.9 % (94-97); ABG PCO2 40 mmHg (35-45); ABG PH 7.41 (7.35-7.45); ABG PO2 107 mmHg (83-108); ABG TCO2 27 mmol/L (19-24); Allen Test Performed? Yes
[2021-09-28 06:20] LABS: Glucose,Whole Blood 348 mg/dL (70-110)
--- NOTE | 2021-09-28 07:05 | XR ---
EXAMINATION TYPE: XR chest 1V portable DATE OF EXAM: 09/28/2021 5:24 AM COMPARISON: Chest radiographs from 09/27/2021. TECHNIQUE: XR chest 1V portable Frontal view of the chest. CLINICAL INDICATION:Female, 66 years old with history of Tube placement; FINDINGS: Lungs/Pleura: No pneumothorax. Small right pleural effusion. Left basilar atelectasis. There is promi nence of the central vascularity and interstitium. Heart/mediastinum: Cardiomediastinal silhouette is enlarged and stable. Musculoskeletal: No acute osseous pathology. Other findings: None Lines/Tubes: Endotracheal tube with distal tip 2.7 cm above the michelle Nasogastric tube with its distal tip and side-port projecting under the diaphragm. IMPRESSION: * Overall stable examination with cardiomegaly and right pleural effusion, and mild pulmonary vascul ar congestion. Correlate for congestive heart failure. * Stable tubes.
--- NOTE | 2021-09-28 07:44 | P.PN ---
Subjective Progress Note Date: 09/28/21 Principal diagnosis: Cardiopulmonary arrest This is a 66-year-old female patient was morbidly obese as well as was multiple comorbid conditions including history of stroke with left sided weakness as well as diabetes and hypertension and also reported history of heart failure as well as multiple comorbid conditions was admitted to the hospital after she had a witnessed cardiopulmonary arrest at [facility] care facility. AED recommended shock and the patient received a shock. Subsequently she was transferred to the hospital. The patient was seen this morning. She continues to be intubated on mechanical ventilation. Unfortunately she was hypotensive and she received 1 L of fluid was no improvement and subsequently she was started on vasopressors was norepinephrine. I was going to give the patient IV fluid again reviewed the chest x-ray which showed evidence of vascular congestion and possible right pleural effusion. She underwent an echo which revealed normal LV function with no significant valvular abnormalities. Overall the prognosis is poor. We might need to consider right heart catheterization to assess her left and right sided filling pressure and consider the need on no need for any IV fluids. Objective - Vital Signs Vital signs: Vital Signs Temp 97.8 F 09/28/21 04:00 Pulse 115 H 09/28/21 07:36 Resp 22 09/28/21 07:00 BP 121/74 09/28/21 06:15 Pulse Ox 99 09/28/21 07:00 FiO2 35 09/28/21 07:23 Intake & Output 09/27/21 09/28/21 09/28/21 18:59 06:59 18:59 Intake Total 4415.532 4172.547 236.403 Output Total 378 325 25 Balance 6136.043 3202.547 211.403 Weight 151.5 kg 153 kg Intake: IV 353 1256 23 0.9% Normal Saline @ 120 120 20 50mls/hr Lactated Ringers 1,000 ml 1000 @ 999 mls/hr IV .Q1H1M [facility] Rx#:[id number] Piperacillin-Tazobactam 3 200 100 .375 gm In Sodium Chloride 0.9% 100 ml @ 25 mls/hr IVPB Q8HR [facility] Rx# :[id number] Pressure Bag 33 36 3 Intake, IV Titration 295.970 651.547 213.403 Amount Norepinephrine 4 mg In 294.597 213.403 Sodium Chloride 0.9% 250 ml @ 0.05 MCG/KG/MIN 28. 861 mls/hr IV .Q8H49M [facility] Rx#:[id number] propofoL 1,000 mg In 295.970 356.950 Empty Bag 1 bag @ 5 MCG/ KG/MIN 4.082 mls/hr IV . Q24H [facility] Rx#:[id number] Oral 80 Tube Feeding 550 250 Other 160 30 Output: Urine 378 325 25 Other: Voiding Method Indwelling Catheter Indwelling Catheter ABP, PAP, CO, CI - Last Documented Arterial Blood Pressure 109/43 - Constitutional General appearance: Present: no acute distress - Respiratory Respiratory: bilateral: diminished - Cardiovascular Rhythm: regular - Labs CBC & Chem 7: 09/28/21 04:45 09/28/21 04:45 Labs: Abnormal Lab Results - Last 24 Hours (Table) 09/27/21 09/27/21 09/27/21 Range/Units 04:49 12:26 17:19 WBC (3.8-10.6) k/uL RBC (3.80-5.40) m/uL Hgb (11.4-16.0) gm/dL Hct (34.0-46.0) % RDW (11.5-15.5) % Neutrophils # (1.3-7.7) k/uL Monocytes # (0-1.0) k/uL ABG Total CO2 (19-24) mmol/L ABG O2 Saturation (94-97) % Sodium (137-145) mmol/L BUN (7-17) mg/dL Glucose (74-99) mg/dL POC Glucose (mg/dL) 230 H 267 H (70-110) mg/dL Hemoglobin A1c 6.5 H (0.0-6.0) % Calcium (8.4-10.2) mg/dL 09/28/21 09/28/21 09/28/21 Range/Units 00:01 04:45 04:45 WBC 27.2 H (3.8-10.6) k/uL RBC 2.90 L (3.80-5.40) m/uL Hgb 8.2 L D (11.4-16.0) gm/dL Hct 25.6 L (34.0-46.0) % RDW 16.4 H (11.5-15.5) % Neutrophils # 19.8 H (1.3-7.7) k/uL Monocytes # 1.1 H (0-1.0) k/uL ABG Total CO2 (19-24) mmol/L ABG O2 Saturation (94-97) % Sodium 136 L (137-145) mmol/L BUN 22 H (7-17) mg/dL Glucose 334 H (74-99) mg/dL POC Glucose (mg/dL) 299 H (70-110) mg/dL Hemoglobin A1c (0.0-6.0) % Calcium 7.6 L (8.4-10.2) mg/dL 09/28/21 09/28/21 Range/Units 05:45 06:19 WBC (3.8-10.6) k/uL RBC (3.80-5.40) m/uL Hgb (11.4-16.0) gm/dL Hct (34.0-46.0) % RDW (11.5-15.5) % Neutrophils # (1.3-7.7) k/uL Monocytes # (0-1.0) k/uL ABG Total CO2 27 H (19-24) mmol/L ABG O2 Saturation 98.9 H (94-97) % Sodium (137-145) mmol/L BUN (7-17) mg/dL Glucose (74-99) mg/dL POC Glucose (mg/dL) 348 H (70-110) mg/dL Hemoglobin A1c (0.0-6.0) % Calcium (8.4-10.2) mg/dL Microbiology - Last 24 Hours (Table) 09/22/21 20:19 Blood Culture - Preliminary Blood No Growth after 120 hours 09/22/21 20:21 Blood Culture - Preliminary Blood No Growth after 120 hours 09/22/21 17:15 Blood Culture - Preliminary Blood No Growth after 120 hours 09/22/21 17:00 Blood Culture - Preliminary Blood No Growth after 120 hours Assessment and Plan Assessment: Assessment #1 cardiopulmonary arrest. Patient received shock #2 elevated d-dimer. Rule out pulmonary embolism #3 morbid obesity #4 history of stroke with residual left-sided weakness #5 hypotension require vasopressors Plan #1 continue anticoagulation with Lovenox #2 the echo was reviewed and showed normal ejection fraction was no significant valvular abnormalities #3 the right to wean the patient from norepinephrine #4 consider right heart catheterization to assess the LV and RV filling pressures if we need to
[2021-09-28] MEDS ORDERED: SODIUM CHLORIDE 0.9% 150 ML with VASOPRESSIN 60 UNIT IV SCH ×2 (08:15)
--- NOTE | 2021-09-28 09:27 | P.PN ---
Subjective Progress Note Date: 09/28/21 Principal diagnosis: Respiratory failure. Acute hypoxic respiratory failure/cardiac arrest This is a 66-year-old female, shelter resident, patient has history of closed head injury back in 1999, and she had at least 2 brain surgeries/craniotomies related to her closed head injury and hydrocephalus. Patient is a poor historian, apparently she was found at the shelter unresponsive and CPR was performed by nursing staff for about 10 minutes. By the time EMS arrived, patient has been shocked by nursing staff at the shelter, and as soon as EMS arrived patient was noted to be in sinus tachycardia with strong pulse at the scene. Patient was ventilated using BVM. And she was brought into the ER. Patient apparently had some witnessed aspiration, she was suctioned, she was unresponsive, and as soon as she arrived to the ER, patient was intubated and mechanically ventilated. She was hemodynamically stable initially. She received fluid boluses. And later on her blood pressure was noted to be trending down. Did not require norepinephrine. But she was given more fluid boluses in the ICU. Blood pressure this morning is very marginal, patient will receive more fluid boluses and will likely start norepinephrine if necessary. In the meantime the patient is unresponsive she doesn't respond to any stimuli except she grimaces and withdraws to deep painful stimuli only. Labs this morning showed a pO2 of 114 pCO2 37 pH of 7.48, and this was done on assist control rate of 22, volume 400 FiO2 70% and PEEP of 5. I was able to cut down the FiO2 to 60%. And I increased the PEEP to 8. Patient is on propofol at 40 mcg/kg/m she is also on heparin because she was found to have elevated d- dimer negative venous Doppler, considering her obesity, and weight, patient would not fit in a CT for CT of the chest. Hence a VQ scan is pending. In the meantime the patient is on heparin which I placed on hold for an hour prior to placement a right femoral triple-lumen catheter and a right femoral arterial line. PTT is 58.8, therapeutic. Urinalysis is suggestive of urinary tract infection, cultures are pending in the meantime the patient received 1 dose of vancomycin and vancomycin will be adjusted by pharmacy we also recommended Zosyn until cultures become available. Patient again may have had witnessed aspiration before coming into the ER. Reevaluated today on 09/24/21, patient remains in the ICU intubated and mechanically ventilated. She is on assist control rate of 22 tidal volume 400 FiO2 60% and I cut it down to 50%, PEEP is at 8. ABG showed a pO2 of 96 pCO2 37 pH of 7.45, and this was on 60% FiO2 and PEEP of 8. Patient remains on heparin empirically, she had a negative venous Doppler, she had a significantly elevated d-dimer, it is almost impossible to have this lady undergo CT angiogram of the chest, hence I will keep her on Lovenox 80 mg subcu twice a day, I believe the VQ scan will be nondiagnostic and I will go ahead and cancel the VQ scan. Her WBC count is 13.6 hemoglobin is 12.8. Electrolytes are normal except for low potassium of 3.4, renal profile is normal. Patient remains on propofol at 30 mcg/kg/m, she is also on IV fluid in the form 0.9 normal saline at 50 mL per hour. Patient will be placed on enteral feeding today. And based on her over all picture, the patient is not ready to be weaned or extubated. It is actually difficult to assess her mental status because the patient does have poor mental status to begin with prior to all of this. She does have history of closed head injury and she will be a true challenge to wean and extubate. Today she is still requiring relatively high FiO2 and high PEEP, her chest x-ray continues to show evidence of bilateral interstitial infiltrates or edema. Patient remains on antibiotics empirically/Zosyn, and I will discontinue vancomycin. Progress note dated 09/25/2021. This is a 66-year-old female admitted back on September 22. She came in with cardiac arrest, aspiration pneumonia, and sepsis. He was intubated on September 22. The patient remains on the mechanical ventilator. She's having an EEG today. Afterwards, we will do a daily interruption of sedation, and potentially a weaning trial. The patient is on the volume assist control, rate 22, tidal volume 400, FiO2 50%, and PEEP of 8. Blood gases show pO2 115, pCO2 of 41, and a pH 7.39. The patient is on propofol at 40 mcg/kg/m, saline at 50 mL an hour, and vital high protein at 20, with a goal of 50 mL an hour. Computed tomography scan of the brain was negative. EEG is pending. The patient was discovered to have a E. coli urinary tract infection. For that she is on Zosyn. Labs today include a white count of 8.6, hemoglobin 12.2, hematocrit 38.6, platelet count 313,000. Sodium 141, potassium 3.8, chlorides 114, CO2 23, BUN 13, and creatinine 0.67. Chest x-ray shows cardiomegaly, with low lung volumes, and bibasilar infiltrates or atelectasis. Progress note dated 09/26/2021. 66-year-old female back on September 22. She was admitted with a diagnosis of cardiac arrest, aspiration pneumonia, and sepsis. She was intubated on September 22. She remains on the ventilator. The patient had a unsuccessful daily interruption of sedation yesterday. Currently, she is on volume assist control mode, rate 22, tidal volume 400, FiO2 50%, PEEP of 8. Blood gases show pO2 125, pCO2 41, and a pH is 7.46. The FiO2 was dropped down to 40%. She is on propofol at 40 mcg/kg/m, saline at 10 mL an hour, and vital high protein at 40 mL an hour. In addition to reducing the FiO2, she is given a one-time dose of Lasix 60 mg IV push. Current labs include a white count 6.6, hemoglobin 12.1, hematocrit 38.2, and a platelet count of 306,000. Sodium 141, potassium 3.7, chlorides 111, CO2 27, BUN 13, creatinine 0.68. Albumin 2.6. Chest x-ray shows cardiomegaly, and bilateral infiltrates consistent with CHF. Urine was positive for Escherichia coli in September 22. Progress note dated 09/27/2021. 66-year-old female who was admitted on September 22. She was admitted with a diagnosis of cardiac arrest, aspiration pneumonia, and sepsis. He was intubated on September 22, and remains on the ventilator. The patient has had daily interruption of sedation, and has not done well. She is a DO NOT RESUSCITATE patient. She remains on volume assist control, rate 22, tidal volume 400, FiO2 40%, and PEEP of 8. Arterial blood gases show pO2 101, pCO2 of 40, pH is 7.47. The patient's on propofol at 40 g kilogram per minute, saline at 10 mL an hour, and vital high protein at 50 mL an hour, which is goal. White count 7.5, hemoglobin 12.1, hematocrit 39, and platelet count 294,000. Sodium 142, pota ssium 3, chlorides 108, CO2 29, normal anion gap, BUN 16, and creatinine 0.62. Albumin 2.7. Urine from September 22 shows Escherichia coli. Chest x-ray shows some bibasilar atelectasis, with a right-sided pleural effusion. Progress note dated 09/28/2021. 66-year-old female dated on September 22. She was admitted with a diagnosis of cardiac arrest, sepsis, and suspected aspiration pneumonia. She was intubated on September 22, and remains on the ventilator. She has had daily interruptions of sedation, and has done poorly. The patient is a DO NOT RESUSCITATE patient. Currently, she remains on volume assist control, rate 22, tidal volume 400, FiO2 35%, and PEEP of 8. Blood gases show pO2 107, pCO2 of 40, and a pH is 7.41. That was on 40% FiO2. She is now on norepinephrine at 50 mcg/m, propofol at 35 mcg/kg/m, saline at KVO, and vital high protein at 50 mL an hour. Urine is showing evidence of Escherichia coli. I've asked the nurses start her on vasopressin, and get a stat random cortisol level. I also had an opportunity to speak to the brother, Luis. White count 27.2, hemoglobin 8.2, hematocrit 25.6, and platelet count was normal. Sodium 136, potassium 4.2, chlorides 107, CO2 28, BUN 22, creatinine 0.68. Chest x-ray shows cardiomegaly, and pulmonary vascular congestion, with a right-sided pleural effusion. Objective - Vital Signs Vital signs: Vital Signs Temp 97.8 F 09/28/21 04:00 Pulse 115 H 09/28/21 07:36 Resp 22 09/28/21 07:00 BP 121/74 09/28/21 06:15 Pulse Ox 99 09/28/21 07:00 FiO2 35 09/28/21 07:23 Intake & Output 09/27/21 09/28/21 09/28/21 18:59 06:59 18:59 Intake Total 1552.264 6569.547 491.483 Output Total 378 325 25 Balance 1610.232 0885.547 466.483 Weight 151.5 kg 153 kg Intake: IV 353 1256 23 0.9% Normal Saline @ 120 120 20 50mls/hr Lactated Ringers 1,000 ml 1000 @ 999 mls/hr IV .Q1H1M [facility] Rx#:[id number] Piperacillin-Tazobactam 3 200 100 .375 gm In Sodium Chloride 0.9% 100 ml @ 25 mls/hr IVPB Q8HR [facility] Rx# :[id number] Pressure Bag 33 36 3 Intake, IV Titration 295.970 651.547 468.483 Amount Norepinephrine 4 mg In 294.597 425.433 Sodium Chloride 0.9% 250 ml @ 0.05 MCG/KG/MIN 28. 861 mls/hr IV .Q8H49M [facility] Rx#:[id number] propofoL 1,000 mg In 295.970 356.950 43.05 Empty Bag 1 bag @ 5 MCG/ KG/MIN 4.082 mls/hr IV . Q24H [facility] Rx#:[id number] Oral 80 Tube Feeding 550 250 Other 160 30 Output: Urine 378 325 25 Other: Voiding Method Indwelling Catheter Indwelling Catheter ABP, PAP, CO, CI - Last Documented Arterial Blood Pressure 109/43 - Exam No acute distress, sedated, with an orally placed endotracheal tube and NG tube. This patient is very obese. HEENT examination is grossly unremarkable. Neck supple. Full range of motion. No adenopathy thyromegaly or neck vein distention. Cardiovascular examination reveals regular rhythm rate. S1-S2 normal. No S3 or S4. No discernible murmur noted. Heart rate 115 bpm. Heart sounds are distant. Lungs reveal scattered bilateral rhonchi. Breath sounds are equal bilaterally. Saturations are 98 %. Abdomen is obese, with bowel sounds. No masses. Extremities are intact. No cyanosis or clubbing. Mild edema. Skin is without rash or lesion. Neurologic examination cannot be adequately assessed. - Labs CBC & Chem 7: 09/28/21 04:45 09/28/21 04:45 Labs: Abnormal Lab Results - Last 24 Hours (Table) 09/27/21 09/27/21 09/27/21 Range/Units 04:49 12:26 17:19 WBC (3.8-10.6) k/uL RBC (3.80-5.40) m/uL Hgb (11.4-16.0) gm/dL Hct (34.0-46.0) % RDW (11.5-15.5) % Neutrophils # (1.3-7.7) k/uL Monocytes # (0-1.0) k/uL ABG Total CO2 (19-24) mmol/L ABG O2 Saturation (94-97) % Sodium (137-145) mmol/L BUN (7-17) mg/dL Glucose (74-99) mg/dL POC Glucose (mg/dL) 230 H 267 H (70-110) mg/dL Hemoglobin A1c 6.5 H (0.0-6.0) % Calcium (8.4-10.2) mg/dL 09/28/21 09/28/21 09/28/21 Range/Units 00:01 04:45 04:45 WBC 27.2 H (3.8-10.6) k/uL RBC 2.90 L (3.80-5.40) m/uL Hgb 8.2 L D (11.4-16.0) gm/dL Hct 25.6 L (34.0-46.0) % RDW 16.4 H (11.5-15.5) % Neutrophils # 19.8 H (1.3-7.7) k/uL Monocytes # 1.1 H (0-1.0) k/uL ABG Total CO2 (19-24) mmol/L ABG O2 Saturation (94-97) % Sodium 136 L (137-145) mmol/L BUN 22 H (7-17) mg/dL Glucose 334 H (74-99) mg/dL POC Glucose (mg/dL) 299 H (70-110) mg/dL Hemoglobin A1c (0.0-6.0) % Calcium 7.6 L (8.4-10.2) mg/dL 09/28/21 09/28/21 Range/Units 05:45 06:19 WBC (3.8-10.6) k/uL RBC (3.80-5.40) m/uL Hgb (11.4-16.0) gm/dL Hct (34.0-46.0) % RDW (11.5-15.5) % Neutrophils # (1.3-7.7) k/uL Monocytes # (0-1.0) k/uL ABG Total CO2 27 H (19-24) mmol/L ABG O2 Saturation 98.9 H (94-97) % Sodium (137-145) mmol/L BUN (7-17) mg/dL Glucose (74-99) mg/dL POC Glucose (mg/dL) 348 H (70-110) mg/dL Hemoglobin A1c (0.0-6.0) % Calcium (8.4-10.2) mg/dL Microbiology - Last 24 Hours (Table) 09/22/21 20:19 Blood Culture - Preliminary Blood No Growth after 120 hours 09/22/21 20:21 Blood Culture - Preliminary Blood No Growth after 120 hours 09/22/21 17:15 Blood Culture - Preliminary Blood No Growth after 120 hours 09/22/21 17:00 Blood Culture - Preliminary Blood No Growth after 120 hours Assessment and Plan Assessment: History of cardiac arrest, September 22, status post intubation and mechanical ventilation, for respiratory failure, sepsis, and aspiration pneumonia. Acute hypoxemic respiratory failure, with failure to wean from mechanical ventilation. Escherichia coli urinary tract infection, with sepsis/septic shock. Aspiration pneumonia. History of closed head injury, patient mentioned challenge. Morbid obesity. History of obstructive sleep apnea syndrome. Type 2 diabetes mellitus. Hyperlipidemia. History of hypertension. EEG is consistent with moderate encephalopathy. Possible anoxic brain injury secondary to cardiac arrest. Plan: Plan dated 09/25/2021. The patient's tube feeds will increase to goal. In addition, the patient will have an EEG today. CAT scan of the brain was negative. She remains on Zosyn Escherichia coli urinary tract infection. Patient remains on sedation with propofol. After the EEG, the patient's propofol be weaned, and the patient will be given a daily interruption of sedation, and potentially a spontaneous breathing trial. Labs, x-rays, and medications are reviewed. The patient may have sustained significant anoxic brain injury. Continue GI and DVT prophylaxis. Additional recommendations and suggestions are forthcoming. Prognosis is certainly guarded. Plan dated 09/26/2021. The patient remains on appropriate medications including propofol, and tube feeds. The FiO2 on the ventilator is reduced to 40%. The patient will get her Lasix dose 60 mg IV push, as a chest x-ray is consistent with fluid overload. Labs, x-rays, and medications are reviewed. The patient continues on Zosyn for E. coli urinary tract infection. The patient is also getting DVT and GI prophylaxis. Additional recommendations and suggestions are forthcoming. Prognosis is guarded. The patient will have another attempt at daily interruption of sedation. Plan dated 09/27/2021. The patient remains on the mechanical ventilator. We've done daily interruption of sedation. The patient does very poorly becomes very agitated and tachypnea. She has to be re-sedated with propofol. The patient's on 2 feedings at goal. She's on appropriate antibiotics for her Escherichia coli urinary tract infection. The nurses will recheck out to the family, or medical decision maker, to determine what to do next. The patient is a DO NOT RESUSCITATE patient. Continue DVT and GI prophylaxis. Prognosis is very poor. Plan dated 09/28/2021. I did have a long conversation with the brother, Luis. The patient is being treated for her urinary tract infection. I've asked for a stat cortisol level, and for the patient to be started on vasopressin at 0.04 units per minute. The patient remains on propofol, and norepinephrine. Prognosis is very poor. She i s a DO NOT RESUSCITATE patient anyway. She continues on GI and DVT prophylaxis. Additional recommendations and suggestions are forthcoming. The patient continues on tube feeds. Labs, x-rays, and medications are reviewed. Time with Patient: Greater than 30
[2021-09-28] MEDS: ENOXAPARIN 80 MG/0.8 ML SYRINGE SQ SCH (10:14)
[2021-09-28] MEDS: CHLORHEXIDINE GLUCONATE 15 ML CUP MUCOUS MEM SCH (10:15)
[2021-09-28] MEDS: PANTOPRAZOLE 40 MG/10 ML VIAL IVP SCH (10:15)
[2021-09-28] MEDS: NYSTATIN 100,000 UNIT/GM POWD 15 GM TOPICAL SCH (10:23)
[2021-09-28 11:54] LABS: Glucose,Whole Blood 338 mg/dL (70-110)
[2021-09-28] MEDS ORDERED: NOREPINEPHRINE 32 MG in SODIUM CHLORIDE 0.9% 218 ML IV SCH (12:30)
[2021-09-28] MEDS ORDERED: INSULIN NPH 300 UNIT/3 ML VIAL SQ SCH (13:00)
[2021-09-28] MEDS ORDERED: ATROPINE OPHTH SOLN 1% 5ML BTL SUBLINGUAL PRN (16:29)
[2021-09-28] MEDS ORDERED: MORPHINE SULFATE 4 MG/ML SYRINGE IV PRN (16:29)
[2021-09-28] MEDS ORDERED: MORPHINE SULFATE 2 MG/ML SYRINGE IV PRN (16:29)
[2021-09-28] MEDS ORDERED: LORazepam 2 MG/ML INJ IV PRN (16:29)
[2021-09-28] MEDS ORDERED: SCOPOLAMINE 1 MG/72 HR PATCH TRANSDERM SCH (16:30)
[2021-09-28] MEDS ORDERED: MORPHINE SULFATE (100 MG/2 ML) 100 MG in SODIUM CHLORIDE 0.9% 100 ML IV SCH (16:30)
--- NOTE | 2021-09-28 17:34 | P.PN ---
Subjective Progress Note Date: 09/28/21 She was seen at bedside and per the patient's nurse seems the patient has been very hypotensive overnight and requiring vasopressors. She is currently on IV propofol 35 mcg/kg/min and according to the nurse yesterday in afternoon she was following some commands on the right but had deficits on left (old). Objective - Vital Signs Vital signs: Vital Signs Temp 97.8 F 09/28/21 04:00 Pulse 126 H 09/28/21 16:16 Resp 22 09/28/21 07:00 BP 121/74 09/28/21 06:15 Pulse Ox 99 09/28/21 07:00 FiO2 35 09/28/21 16:17 Intake & Output 09/27/21 09/28/21 09/28/21 18:59 06:59 18:59 Intake Total 1179.257 2888.547 1559.680 Output Total 378 325 25 Balance 3996.077 2255.547 1534.680 Weight 151.5 kg 153 kg Intake: IV 353 1256 23 0.9% Normal Saline @ 120 120 20 50mls/hr Lactated Ringers 1,000 ml 1000 @ 999 mls/hr IV .Q1H1M [facility] Rx#:[id number] Piperacillin-Tazobactam 3 200 100 .375 gm In Sodium Chloride 0.9% 100 ml @ 25 mls/hr IVPB Q8HR [facility] Rx# :[id number] Pressure Bag 33 36 3 Intake, IV Titration 295.970 700.425 9225.680 Amount Norepinephrine 32 mg In 135.488 Sodium Chloride 0.9% 218 ml @ 0.05 MCG/KG/MIN 3. 586 mls/hr IV .Q24H [facility] Rx#:[id number] Norepinephrine 4 mg In 879.383 0144.923 Sodium Chloride 0.9% 250 ml @ 0.05 MCG/KG/MIN 28. 861 mls/hr IV .Q8H49M [facility] Rx#:[id number] propofoL 1,000 mg In 295.970 356.950 219.269 Empty Bag 1 bag @ 5 MCG/ KG/MIN 4.082 mls/hr IV . Q24H [facility] Rx#:[id number] Oral 80 Tube Feeding 550 250 Other 160 30 Output: Urine 378 325 25 Other: Voiding Method Indwelling Catheter Indwelling Catheter ABP, PAP, CO, CI - Last Documented Arterial Blood Pressure 109/43 - Exam GENERAL: The patient is a morbid obese woman lying in bed and does not appear in acute distress. LUNG: Intubated on ventilator. NEUROLOGICAL: Limited. Is on IV Propofol 35mcg/kg/min Higher mental function: The patient is comatose. Cranial nerves: The primary gaze is midline. The pupils are round, equal and reactive to light. Primary gaze is midline. No facial weakness. Has intact gag reflex. Is t breathing over the vent. Motor: Unable to assess because of her cooperation. Cerebellum: Unable to assess. Sensation: Unable to assess light touch. Grimaces to painful stimuli throughout extremities. - Labs CBC & Chem 7: 09/28/21 04:45 09/28/21 04:45 Labs: Abnormal Lab Results - Last 24 Hours (Table) 09/27/21 09/28/21 09/28/21 Range/Units 04:49 00:01 04:45 WBC 27.2 H (3.8-10.6) k/uL RBC 2.90 L (3.80-5.40) m/uL Hgb 8.2 L D (11.4-16.0) gm/dL Hct 25.6 L (34.0-46.0) % RDW 16.4 H (11.5-15.5) % Neutrophils # 19.8 H (1.3-7.7) k/uL Monocytes # 1.1 H (0-1.0) k/uL ABG Total CO2 (19-24) mmol/L ABG O2 Saturation (94-97) % Sodium (137-145) mmol/L BUN (7-17) mg/dL Glucose (74-99) mg/dL POC Glucose (mg/dL) 299 H (70-110) mg/dL Hemoglobin A1c 6.5 H (0.0-6.0) % Calcium (8.4-10.2) mg/dL 09/28/21 09/28/21 09/28/21 Range/Units 04:45 05:45 06:19 WBC (3.8-10.6) k/uL RBC (3.80-5.40) m/uL Hgb (11.4-16.0) gm/dL Hct (34.0-46.0) % RDW (11.5-15.5) % Neutrophils # (1.3-7.7) k/uL Monocytes # (0-1.0) k/uL ABG Total CO2 27 H (19-24) mmol/L ABG O2 Saturation 98.9 H (94-97) % Sodium 136 L (137-145) mmol/L BUN 22 H (7-17) mg/dL Glucose 334 H (74-99) mg/dL POC Glucose (mg/dL) 348 H (70-110) mg/dL Hemoglobin A1c (0.0-6.0) % Calcium 7.6 L (8.4-10.2) mg/dL 09/28/21 Range/Units 11:53 WBC (3.8-10.6) k/uL RBC (3.80-5.40) m/uL Hgb (11.4-16.0) gm/dL Hct (34.0-46.0) % RDW (11.5-15.5) % Neutrophils # (1.3-7.7) k/uL Monocytes # (0-1.0) k/uL ABG Total CO2 (19-24) mmol/L ABG O2 Saturation (94-97) % Sodium (137-145) mmol/L BUN (7-17) mg/dL Glucose (74-99) mg/dL POC Glucose (mg/dL) 338 H (70-110) mg/dL Hemoglobin A1c (0.0-6.0) % Calcium (8.4-10.2) mg/dL Microbiology - Last 24 Hours (Table) 09/22/21 20:19 Blood Culture - Preliminary Blood No Growth after 120 hours 09/22/21 20:21 Blood Culture - Preliminary Blood No Growth after 120 hours 09/22/21 17:15 Blood Culture - Preliminary Blood No Growth after 120 hours 09/22/21 17:00 Blood Culture - Preliminary Blood No Growth after 120 hours Assessment and Plan Assessment: * Cardiac arrest on 09/22/2021 with downtime of 10 minutes. Patient is showing some meaningful response, following directions as mentioned above detail. Still very encephalopathic but is on IV Propofol. * Anoxic encephalopathy due to cardiac arrest. * Acute urinary tract infection * Acute respiratory failure due to above, on mechanical ventilation. * Aspiration Pneumonia * Morbid obesity * CHF * Diabetes type 2 * Hypertension * History of closed head injury with craniotomies, hydrocephalus with residual left sided weakness * Possible aspiration. Plan: * Routine EEG: Is abnormal. The background slowing suggestive of moderate encephalopathy. Otherwise there is no focal slowing, epileptiform discharges or seizure on the EEG. * Repeat CT head on 09/25/2021: No acute intracranial hemorrhage or midline shift. There is moderate diffuse age related cerebral atrophy and mild to moderate chronic small vessel ischemic change we demonstrate. No significant change from recent brain CT. I reviewed and negative for acute or subacute * If patient's condition does not show improvement by tomorrow will consider repeat CT head. * Cardiology ordered a 2-D echo which is reported as technically difficult study with suboptimal. Preserved left ventricular size and systolic function of ejection fraction 55-60%. Normal left atrial size. * Medical management as per IM and critical care. * Patient is following some commands according to nurse on right side while off sedation. She is on sedation and hopefully will continue to have holiday sedation to assess neurological examination. * Condition is extremely guarded. CODE STATUS: DN&R The plan is discussed with the nurse. Nav John M.D. Neuro-Hospitalist Time with Patient: Less than 30
--- NOTE | 2021-09-28 17:50 | P.PN ---
Progress Note - Text Progress Note Date: 09/28/21 Chief Complaint: Found unresponsive This is a 66-year-old patient, follows with Dr. Ray. Patient is at [facility] resident. He was found unresponsive at [facility]term and fibula was performed for about 10 minutes by the staff. Patient was shocked with AED. When the EMS arrived patient has a sinus tachycardia with a good pulse. Placed on Assisted ventilation with BMV Patient is intubated in the ER. It was felt the patient has aspirated after the suctioning brown colored fluid. The patient is in ICU. On the ventilator. 60/8. While propofol drip and started on Levophed. She will also placed on IV heparin in the ER. Doppler ultrasound of the lower extremities was negative for DVT. Did not have a VQ scan done. Computed tomography scan could not be done because of large body habitus. Had a d-dimer symptoms. Spoke to patient's brother/guardian Luis. 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 Patient is able to speak the often times will miss out on words. Able to feed herself. Nonambulatory. Admitted with cardiopulmonary arrest, aspiration pneumonia causing sepsis, septic shock, ICU. Intubated. propofol. Vancomycin, Zosyn. September 24: ICU: Intubated. Drips include to prevent. Changed from IV heparin to subcu Lovenox. Creamy secretions from the tracheostomy. Nurse called me this afternoon, patient's brother guardian made the patient DO NOT RESUSCITATE September 25: ICU: Ventilator/intubated. FiO2 50 and a PEEP of 8. Telemetry sinus rhythm. 2 feeding at 20 mL an hour. Drips included propofol. Negative MRSA nasal screen. Vancomycin discontinued. IV Zosyn September 2: ICU: Ventilator/intubated. FiO2 40 and a PEEP of 8. Drips include IV propofol. Telemetry shows sinus rhythm. 2 feeding at 50 mL an hour. EEG showed encephalopathy. September 27: ICU: Ventilator/intubated. FiO2 40 and a PEEP of 8. Sedation holiday was tried. Did not tolerate. Became agitated hypertensive. He [place] nose to get patient's home dose Luvox, if not available in the hospital from home. 2 feeding at 50 mL an hour. Sinus rhythm September 28: ICU: Ventilator/intubated. FiO2 35 PEEP of 8. Sinus tachycardia. Patient had to go back on vasopressors and IV levo fed. 2 feeding. Accu-Cheks running high. One time NPH added. And 50 units of Levemir at night. Active Medications Albuterol/Ipratropium (Ipratropium-Albuterol 3 Ml Neb) 3 ml INHALATION RT-Q4H S Last Admin: 09/28/21 16:16 Dose: Not Given Atropine Sulfate (Atropine Ophth Soln 1% 5ml Btl) 2 drops SUBLINGUAL Q4HR PRN PRN Reason: Excess Secretions Chlorhexidine Gluconate (Chlorhexidine Gluconate 15 Ml Cup) 15 ml MUCOUS MEM BID [facility] Last Admin: 09/28/21 10:15 Dose: 15 ml Dextrose/Water (Dextrose 50% Syringe 50 Ml) 25 ml IVP PER PROTOCOL PRN; Protocol PRN Reason: Hypoglycemia Dextrose/Water (Dextrose 50% Syringe 50 Ml) 50 ml IVP PER PROTOCOL PRN; Protocol PRN Reason: Hypoglycemia Enoxaparin Sodium (Enoxaparin 80 Mg/0.8 Ml Syringe) 80 mg SQ Q12HR [facility] Last Admin: 09/28/21 10:14 Dose: 80 mg Fluvoxamine Maleate (Fluvoxamine 50 Mg Tab) 150 mg PO BID@0800,2000 [facility] Last Admin: 09/28/21 08:18 Dose: 150 mg Hydromorphone HCl (Hydromorphone 0.5 Mg/0.5 Ml Syringe) 0.5 mg IVP Q3HR PRN PRN Reason: Pain Last Admin: 09/28/21 04:51 Dose: 0.5 mg Propofol 1,000 mg/ IV Solution 100 mls @ 4.082 mls/hr IV .Q24H [facility]; Protocol Last Admin: 09/28/21 14:26 Dose: 35 mcg/kg/min, 28.576 mls/hr Piperacillin Sod/Tazobactam (Sod 3.375 gm/ Sodium Chloride) 100 mls @ 25 mls/hr IVPB Q8HR [facility]; Protocol Last Admin: 09/28/21 16:23 Dose: 25 mls/hr Vasopressin 60 unit/ Sodium (Chloride) 153 mls @ 6.12 mls/hr IV .Q24H [facility] Last Admin: 09/28/21 09:55 Dose: 6.12 mls/hr Norepinephrine Bitartrate 32 (mg/ Sodium Chloride) 250 mls @ 3.586 mls/hr IV .Q24H [facility]; Protocol Last Titration: 09/28/21 15:46 Dose: 0.8 mcg/kg/min, 57.375 mls/hr Morphine Sulfate 100 mg/ (Sodium Chloride) 102 mls @ 1.02 mls/hr IV .Q24H [facility]; Protocol Insulin Aspart (Insulin Aspart (Novolog) 100 Unit/Ml Vial) 0 unit SQ Q6HR [facility]; Protocol Last Admin: 09/28/21 12:08 Dose: 12 unit Insulin Detemir (Insulin Detemir (Levemir) 100 Unit/Ml Syr) 50 unit SQ HS [facility] Lorazepam (Lorazepam 2 Mg/Ml Inj) 1 mg IV Q6HR PRN PRN Reason: Anxiety Miscellaneous Information (Potassium Replacement Protocol 1 Each Misc) 1 each MISCELLANE DAILY PRN; Protocol PRN Reason: Per Protocol Morphine Sulfate (Morphine Sulfate 2 Mg/Ml Syringe) 2 mg IV Q15M PRN PRN Reason: Breakthrough Pain Last Admin: 09/28/21 16:53 Dose: 2 mg Morphine Sulfate (Morphine Sulfate 4 Mg/Ml Syringe) 4 mg IV Q15M PRN PRN Reason: Breakthrough Pain Nystatin (Nystatin 100,000 Unit/Gm Powd 15 Gm) 1 applic TOPICAL BID [facility]; Protocol Last Admin: 09/28/21 10:23 Dose: 1 applic Pantoprazole Sodium (Pantoprazole 40 Mg/10 Ml Vial) 40 mg IVP DAILY [facility] Last Admin: 09/28/21 10:15 Dose: 40 mg Scopolamine (Scopolamine 1 Mg/72 Hr Patch) 1 patch TRANSDERM Q72H [facility] Last Admin: 09/28/21 17:08 Dose: 1 patch Past medical history to include: CHF, diabetes, hypertension, hyperlipidemia, closed head injury in 1999. Has had 2 surgeries to release pressure on the brain. Depression anxiety/OCD. Social history: Previous smoker. Bed bound. Resident at [facility] Family history: Noncontributory to presentation Physical examination: VITAL SIGNS: 12, 22, 106.41, 100% on the vent GENERAL: in bed, intubated, sedated. EYES: Pupils equal. Conjunctiva normal. HEENT: External appearance of nose and ears normal, oral cavity grossly normal. NECK: JVD unable to assess; masses not palpable. HEART: First and second heart sounds are normal; mild edema. LUNGS: Respiratory rate increased; diminished breath sounds. ABDOMEN: Soft, nontender, liver spleen not palpable, no masses palpable. PSYCH: Sedated MUSCULOSKELETAL:No Clubbing/cyanosis;muscles-grossly intact NEUROLOGICAL: [Cranial nerves grossly intact; no facial asymmetry, gag reflex present. Pupils are responding. Left-sided weakness DERMATOLOGICAL: area of redness underskin folds INVESTIGATIONS, reviewed in the clinical context: September 28: WBC 27.2 hemoglobin 8.2 potassium 4.2 creatinine 0.68 September 27: White count 7.5 hemoglobin 12.1 platelets 24 potassium 3 creatinine 0.62 September 26: WBC 6.6 hemoglobin 12.1 platelets 306 sodium 141 potassium 3.7 creatinine 0.68 MRSA screen [nasal]: Negative CT brain [September was]: Moderate diffuse age-related cerebral atrophy 2-D echocardiogram: EF 55-60%. Moderate concentric LVH. September 25: WBC 8.6 hemoglobin 12.2 platelets 313 potassium 3.8 creatinine 0.67 September 24: Obesity 13.6 hemoglobin 12.8 platelets 27 potassium 3.4 creatinine 0.57 White count 20.2 hemoglobin 14.8 platelets 382 ABG: PH 7.3 pCO2 62 pO2 99 FiO2 100% lactic acid 5.8 AST 74 ALT 41 UA positive for nitrite, RBC, WBC,. Negative for nitrite COVID 19/R S/P/influenza type A type B: Not detected White count 22.1 hemoglobin 16.2 platelets 421 potassium 4 creatinine 0.7 EKG tracing personally reviewed by me-sinus tachycardia, [address] segment changes Chest x-ray film personally reviewed by me-/portable: Decreased penetration. Possible infiltrates Assessment and plan: -Possible cardiopulmonary arrest, down time unknown . received about 10 minutes of CPR and shock AeD. Return of circulation. 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 At length admitted night -Hyperlipidemia Pravachol -Sepsis Received IV fluids and antibiotics -COPD in a previous smoker DuoNeb -Elevated d-dimer. Doubt PE. . Doppler ultrasound both extremity negative. Subcu Lovenox -OCD On luvox -DO NOT RESUSCITATE -Guardian patient's brother Luis Intubated. IV Zosyn. . Levo fed and vasopressin added. Not doing well. Prognosis guarded. Late at this afternoon nurse called me to say family thinking of comfort care
[2021-09-28 18:15] VITALS: BP 68/44; PULSE 60; TEMP 98
[2021-09-28] MEDS ORDERED: INSULIN DETEMIR (LEVEMIR) 100 UNIT/ML SYR SQ SCH (21:00)
--- NOTE | 2021-09-29 13:50 | CDI ---
Documentation Clarification Form Date: 09/29/21 From: Judy Mitchell Admit Date: 09/22/2021 07:30:00 PM Patient Name: Janneth Izaguirre Visit Number: [id number] Discharge Date: 09/28/2021 07:00:00 PM ATTENTION: The Clinical Documentation Specialists (CDI) and [facility] Coding Staff appreciate your assistance in clarifying documentation. Please respond to the clarification below the line at the bottom and electronically sign. The CDI & [facility] Coding staff will review the response and follow-up if needed. Please note: Queries are made part of the Legal Health Record. If you have any questions, please contact the author of this message via ITS. Dr. Jose Diaz, UTI is documented in the 09/23 Dr. Valadez consult, the patient presented to ED with a Pena catheter. Additional clarification regarding the etiology of the UTI is requested. History/Risk Factors: S/p cardiac arrest, acute hypoxic respiratory failure. aspiration pneumonia, HTN w chronic diastolic CHF, morbid obesity w BMI of 57.9, COPD Clinical Indicators: T 97.7, P 128, R 17, BP 129/90, ventilated on admission. Urinalysis: cloudy, protein 3+, blood large, leukocyte esterase large, RBC >182, WBC 99, WBC clumps moderate, hyaline casts 3 Urine culture: Escherichia coli Treatment: IV Vancoymin, IV Zoysn, Please clarify the etiology of the UTI, if known: [ ] UTI due to Pena catheter the cause of sepsis [ ] UTI due to Pena catheter not the cause of sepsis [ ] UTI not related to catheter [ ] Other condition, please specify [ ] Unable to determine UTI not related to catheter MTDD
--- NOTE | 2021-09-29 21:09 | P.DS ---
Providers Date of admission: 09/22/21 19:30 Expected date of discharge: 09/28/21 Attending physician: Jose Diaz Consults: 09/22/21 19:30 Consult Physician Stat Consulting Provider: Joey Montalvo Consult Reason/Comments: Cardiac arrest, respiratory failure on the ventilator, sepsis, pneumonia Do you want consulting provider notified?: Already Contacted 09/23/21 08:54 Consult Physician Urgent Consulting Provider: Nav John Consult Reason/Comments: cardiac arrest Do you want consulting provider notified?: Yes 09/23/21 12:00 Consult Physician Routine Consulting Provider: Gerardo Kay Consult Reason/Comments: Cardiac arrest Do you want consulting provider notified?: Yes, Notify in am [facility]: Chief Complaint: Found unresponsive This is a 66-year-old patient, follows with Dr. Ray. Patient is at [facility] resident. He was found unresponsive at [facility] and fibula was performed for about 10 minutes by the staff. Patient was shocked with AED. When the EMS arrived patient has a sinus tachycardia with a good pulse. Placed on Assisted ventilation with BMV Patient is intubated in the ER. It was felt the patient has aspirated after the suctioning brown colored fluid. The patient is in ICU. On the ventilator. 60/8. While propofol drip and started on Levophed. She will also placed on IV heparin in the ER. Doppler ultrasound of the lower extremities was negative for DVT. Did not have a VQ scan done. Computed tomography scan could not be done because of large body habitus. Had a d-dimer symptoms. Spoke to patient's brother/guardian Luis. 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 Patient is able to speak the often times will miss out on words. Able to feed herself. Nonambulatory. Admitted with cardiopulmonary arrest, aspiration pneumonia causing sepsis, septic shock, ICU. Intubated. propofol. Vancomycin, Zosyn. September 24: ICU: Intubated. Drips include to prevent. Changed from IV heparin to subcu Lovenox. Creamy secretions from the tracheostomy. Nurse called me this afternoon, patient's brother guardian made the patient DO NOT RESUSCITATE September 25: ICU: Ventilator/intubated. FiO2 50 and a PEEP of 8. Telemetry sinus rhythm. 2 feeding at 20 mL an hour. Drips included propofol. Negative MRSA nasal screen. Vancomycin discontinued. IV Zosyn September 26: ICU: Ventilator/intubated. FiO2 40 and a PEEP of 8. Drips include IV propofol. Telemetry shows sinus rhythm. 2 feeding at 50 mL an hour. EEG showed encephalopathy. September 27: ICU: Ventilator/intubated. FiO2 40 and a PEEP of 8. Sedation holiday was tried. Did not tolerate. Became agitated hypertensive. He [place] nose to get patient's home dose Luvox, if not available in the hospital from home. 2 feeding at 50 mL an hour. Sinus rhythm September 28: ICU: Ventilator/intubated. FiO2 35 PEEP of 8. Sinus tachycardia. Patient had to go back on vasopressors and IV levo fed. 2 feeding. Accu-Cheks running high. One time NPH added. And 50 units of Levemir at night. Negative family decided to make the patient comfort care. Patient was extubated. Patient Past medical history to include: CHF, diabetes, hypertension, hyperlipidemia, closed head injury in 1999. Has had 2 surgeries to release pressure on the brain. Depression anxiety/OCD. Social history: Previous smoker. Bed bound. Resident at [facility] Family history: Noncontributory to presentation INVESTIGATIONS, reviewed in the clinical context: September 28: WBC 27.2 hemoglobin 8.2 potassium 4.2 creatinine 0.68 September 27: White count 7.5 hemoglobin 12.1 platelets 24 potassium 3 creatinine 0.62 September 26: WBC 6.6 hemoglobin 12.1 platelets 306 sodium 141 potassium 3.7 creatinine 0.68 MRSA screen [nasal]: Negative CT brain [September was]: Moderate diffuse age-related cerebral atrophy 2-D echocardiogram: EF 55-60%. Moderate concentric LVH. September 25: WBC 8.6 hemoglobin 12.2 platelets 313 potassium 3.8 creatinine 0.67 September 24: Obesity 13.6 hemoglobin 12.8 platelets 27 potassium 3.4 creatinine 0.57 White count 20.2 hemoglobin 14.8 platelets 382 ABG: PH 7.3 pCO2 62 pO2 99 FiO2 100% lactic acid 5.8 AST 74 ALT 41 UA positive for nitrite, RBC, WBC,. Negative for nitrite COVID 19/R S/P/influenza type A type B: Not detected White count 22.1 hemoglobin 16.2 platelets 421 potassium 4 creatinine 0.7 EKG tracing personally reviewed by me-sinus tachycardia, [address] segment changes Chest x-ray film personally reviewed by me-/portable: Decreased penetration. Possible infiltrates Cause of : Aspiration pneumonia Assessment and plan: -Possible cardiopulmonary arrest, down time unknown . received about 10 minutes of CPR and shock AeD. Return of circulation. 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 At length admitted night -Hyperlipidemia Pravachol -Sepsis Received IV fluids and antibiotics -COPD in a previous smoker DuoNeb -Elevated d-dimer. Doubt PE. . Doppler ultrasound both extremity negative. Subcu Lovenox -OCD On luvox -DO NOT RESUSCITATE -Guardian patient's brother Luis Patient Plan - Discharge Summary Discharge Rx Participant: No New Discharge Prescriptions: Discontinued Spironolactone [Aldactone] 25 mg PO DAILY@0800 Pravastatin Sodium [Pravachol] 20 mg PO HS@1999 Multivitamins, Thera [Multivitamin (formulary)] 1 tab PO HS lisinopriL [Zestril] 10 mg PO DAILY@0800 fluvoxaMINE MALEATE [Luvox] 150 mg PO BID@0800,1999 Furosemide [Lasix] 40 mg PO DAILY@0800,1600 Calcium Carbonate/Vitamin D3 [Calcium 600-Vit D3 400 Caplet] 1 tab PO BID@0800,1999 Aspirin [Adult Low Dose Aspirin EC] 81 mg PO DAILY@0800 Sennosides-Docusate Sodium [Senokot-S] 2 tab PO BID@0800,1999 Insulin Glargine [Lantus Vial] 50 unit SQ BID@0800,1999 Albuterol Sulfate [Proventil Hfa] 2 puff INHALATION RT-QID@08,12,16,20 PRN PRN Reason: Wheezing Fluticasone Propion/Salmeterol [Advair 250-50 Diskus] 1 puff INHALATION RT- BID@0800,1999 INSULIN LISPRO (HumaLOG) [humaLOG] 22 units SQ TID@0700,1100,1600 Metoprolol Tartrate [Lopressor] 12.5 mg PO BID@0800,1999 Potassium Chloride ER [K-Dur 20] 40 meq PO DAILY@0800 Discharge Disposition: - Preliminary Cause of Preliminary Cause of : Aspiration pneumonia
== END 2021-09-28 19:00 | disposition expired | DRG 870 ==
LOC: EC 17:00 → 2SICU 19:30
PROVIDERS: ADMIT Hospitalist; ATTEND Hospitalist
PROC: 0D9670Z Drainage of Stomach with Drainage Device, Via Natural or Artificial Opening (ICD-10-PCS; principal; 2021-09-22)
PROC: 5A1955Z Respiratory Ventilation, Greater than 96 Consecutive Hours (ICD-10-PCS; principal; 2021-09-22)
PROC: 0BH17EZ Insertion of Endotracheal Airway into Trachea, Via Natural or Artificial Opening (ICD-10-PCS; principal; 2021-09-22)
PROC: 4A133B1 Monitoring of Arterial Pressure, Peripheral, Percutaneous Approach (ICD-10-PCS; 2021-09-23)
PROC: 3E043XZ Introduction of Vasopressor into Central Vein, Percutaneous Approach (ICD-10-PCS; 2021-09-23)
PROC: 4A133J1 Monitoring of Arterial Pulse, Peripheral, Percutaneous Approach (ICD-10-PCS; 2021-09-23)
PROC: 04HY32Z Insertion of Monitoring Device into Lower Artery, Percutaneous Approach (ICD-10-PCS; 2021-09-23)
PROC: 06HM33Z Insertion of Infusion Device into Right Femoral Vein, Percutaneous Approach (ICD-10-PCS; 2021-09-23)
PROC: 3E0G76Z Introduction of Nutritional Substance into Upper GI, Via Natural or Artificial Opening (ICD-10-PCS; 2021-09-24)
DX: A41.9 Sepsis, unspecified organism (principal); J96.01 Acute respiratory failure with hypoxia; J69.0 Pneumonitis due to inhalation of food and vomit; R65.21 Severe sepsis with septic shock; G93.41 Metabolic encephalopathy; E87.2 Acidosis; G93.1 Anoxic brain damage, not elsewhere classified; Z68.43 Body mass index [BMI] 50.0-59.9, adult; G81.94 Hemiplegia, unspecified affecting left nondominant side; I50.32 Chronic diastolic (congestive) heart failure; J98.11 Atelectasis; N39.0 Urinary tract infection, site not specified; I46.9 Cardiac arrest, cause unspecified; B37.2 Candidiasis of skin and nail; J44.9 Chronic obstructive pulmonary disease, unspecified; E11.51 Type 2 diabetes mellitus with diabetic peripheral angiopathy without gangrene; I11.0 Hypertensive heart disease with heart failure; G31.9 Degenerative disease of nervous system, unspecified; E66.01 Morbid (severe) obesity due to excess calories; Z79.4 Long term (current) use of insulin; Z51.5 Encounter for palliative care; Z66 Do not resuscitate; Z20.822 Contact with and (suspected) exposure to COVID-19; G47.33 Obstructive sleep apnea (adult) (pediatric); I45.10 Unspecified right bundle-branch block; K42.9 Umbilical hernia without obstruction or gangrene; E78.5 Hyperlipidemia, unspecified; F41.8 Other specified anxiety disorders; F42.9 Obsessive-compulsive disorder, unspecified; R47.1 Dysarthria and anarthria; Z79.82 Long term (current) use of aspirin; Z79.51 Long term (current) use of inhaled steroids; Z79.899 Other long term (current) drug therapy; Z87.820 Personal history of traumatic brain injury; Z87.891 Personal history of nicotine dependence; Z74.01 Bed confinement status; Z71.3 Dietary counseling and surveillance
CPT/HCPCS: 31500; 36415; 36600; 43753; 70450; 71045; 80048; 80053; 81001; 82330; 82533; 82805; 83036; 83605; 83735; 83880; 84132; 84145; 84484; 85025; 85379; 85610; 85730; 87040; 87070; 87077; 87086; 87186; 87205; 87636; 93005; 93306; 93970; 94002; 94003; 94640; 95816; 96365; 96366; 96367; 96368; 96375; 99291; 99292